=== PATIENT | female | born 1965 | race Two or more races ===

== ENCOUNTER 2020-01-08 20:15 | Emergency (ER) | payer MEDICAID, OTHER ==
[~2020-01-08] VITALS: Ht 162.6 cm; Wt 122.5 kg
[2020-01-08 22:02] LABS: Basophils # (auto) 0 10 ^3/uL (0-0.2); Basophils % (auto) 0.6 % (0.0-2.0); Eosinophils # (auto) 0.1 10 ^3/uL (0-0.8); Eosinophils % (auto) 0.9 % (0.0-7.0); Hematocrit 44.1 % (36.0-46.0); Lymphocytes # (auto) 2.4 10 ^3/uL (0.4-5.4); Lymphocytes % (auto) 29.8 % (10.0-50.0); Mean Corpuscular Hemoglobin 32.5 pg (28.0-32.0); Mean Corpuscular Hgb Conc. 33.9 g/dL (32.0-36.0); Mean Corpuscular Volume 95.9 fL (80.0-100.0); Monocytes # (auto) 0.5 10 ^3/uL (0-1.3); Monocytes % (auto) 6.6 % (0.0-12.0); Neutrophils % (auto) 62.1 % (37.0-80.0); Nucleated Red Blood Cells % 0.2 %; Platelet Count (auto) 174 10^3/uL (140-450); Red Cell Distribution Width 13.7 % (11.8-14.3)
[2020-01-08 22:19] LABS: Albumin 3.6 g/dL (3.4-5.0); Calcium 8.9 mg/dL (8.5-10.1); Potassium 3.8 mmol/L (3.5-5.1)
[2020-01-08 22:22] LABS: BUN/Creatinine Ratio 17.6; Bilirubin, Total 0.4 mg/dL (0.2-1.0); Total Protein 8.2 g/dL (6.4-8.2); Urine Bacteria FEW /hpf (None Seen); Urine Blood Negative /uL (Negative); Urine Specific Gravity 1.018 (1.001-1.035); Urine WBC 12 /hpf (0 - 5)
[2020-01-08 22:33] LABS: Alcohol, Urine < 3.0 mg/dL (0-5); Amphetamine Screen, Urine NEGATIVE (NEGATIVE); Barbiturate Scree,Urine NEGATIVE (NEGATIVE); Benzodiazephine Screen, Urine NEGATIVE (NEGATIVE); Cannabinoid Screen, Urine NEGATIVE (NEGATIVE); Cocaine Screen, Urine NEGATIVE (NEGATIVE); Opiate Scree,Urine NEGATIVE (NEGATIVE); Phencyclidine Screen, Urine NEGATIVE (NEGATIVE)
[2020-01-08 23:26] VITALS: BP 146/83
== END 2020-01-08 22:39 | disposition home or self-care (01) ==
LOC: EDBD 20:15 → ER 20:19
DX: N39.0 Urinary tract infection, site not specified (principal); F41.1 Generalized anxiety disorder; I10 Essential (primary) hypertension; E11.9 Type 2 diabetes mellitus without complications; I25.10 Atherosclerotic heart disease of native coronary artery without angina pectoris; Z86.73 Personal history of transient ischemic attack (TIA), and cerebral infarction without residual deficits
CPT/HCPCS: 36415; 74176; 80053; 80307; 81001; 82150; 82962; 83605; 83690; 85025

== ENCOUNTER 2020-02-09 15:54 | Inpatient (IN) | payer MEDICAID, OTHER ==
[~2020-02-09] VITALS: Ht 162.6 cm; Wt 121.0 kg
[2020-02-09] MEDS ORDERED: SODIUM CHLORIDE 0.9% 1,000 ML IV ONE (16:05)
[2020-02-09] MEDS ORDERED: LORazepam 2MG/ML-1ML VIAL IV ONE (16:15)
[2020-02-09 16:24] LABS: Basophils # (auto) 0.1 10 ^3/uL (0-0.2); Basophils % (auto) 0.5 % (0.0-2.0); Eosinophils # (auto) 0.2 10 ^3/uL (0-0.8); Eosinophils % (auto) 1.9 % (0.0-7.0); Hematocrit 46.5 % (36.0-46.0); Hemoglobin 14.7 g/dL (12.2-16.2); Lymphocytes # (auto) 3.9 10 ^3/uL (0.4-5.4); Lymphocytes % (auto) 40.6 % (10.0-50.0); Mean Corpuscular Hemoglobin 31.8 pg (28.0-32.0); Mean Corpuscular Hgb Conc. 31.6 g/dL (32.0-36.0); Mean Corpuscular Volume 100.8 fL (80.0-100.0); Monocytes # (auto) 0.7 10 ^3/uL (0-1.3); Monocytes % (auto) 7.1 % (0.0-12.0); Neutrophils # (auto) 4.7 10 ^3/uL (1.6-8.6); Neutrophils % (auto) 49.9 % (37.0-80.0); Platelet Count (auto) 204 10^3/uL (140-450); Red Blood Cells 4.62 10^6/uL (4.0-5.20); White Blood Cell 9.5 10^3/uL (4.4-10.8)
[2020-02-09 16:37] LABS: Albumin 3.4 g/dL (3.4-5.0); Anion Gap 15 (5-15); Blood Urea Nitrogen 12 mg/dL (7-18); Calcium 8.7 mg/dL (8.5-10.1); Carbon Dioxide 16 mmol/L (21-32); Chloride 106 mmol/L (98-107); Glucose 330 mg/dL (74-106); Potassium 4.2 mmol/L (3.5-5.1); Sodium 137 mmol/L (136-145)
[2020-02-09 16:41] LABS: Alanine Aminotransferase 24 U/L (13-56); Alkaline Phosphatase 83 U/L (45-117); Aspartate Aminotransferase 26 U/L (15-37); BUN/Creatinine Ratio 12.9; Bilirubin, Total 0.3 mg/dL (0.2-1.0); GFR African American 80 mL/min; GFR Non-African American 66 mL/min; Total Protein 7.6 g/dL (6.4-8.2)
[2020-02-09 16:58] LABS: Urine WBC None Seen /hpf (0 - 5)
[2020-02-09 17:08] LABS: Urine Bacteria NONE SEEN /hpf (None Seen); Urine Blood Negative /uL (Negative); Urine Specific Gravity 1.025 (1.001-1.035)
[2020-02-09 17:15] LABS: INR 0.97 (0.9-1.15); Partial Thromboplastin Time 23.8 sec (23.64-32.05)
[2020-02-09 17:24] LABS: Amphetamine Screen, Urine NEGATIVE (NEGATIVE); Barbiturate Scree,Urine NEGATIVE (NEGATIVE); Benzodiazephine Screen, Urine POSITIVE (NEGATIVE); Cannabinoid Screen, Urine NEGATIVE (NEGATIVE); Cocaine Screen, Urine NEGATIVE (NEGATIVE); Opiate Scree,Urine NEGATIVE (NEGATIVE); Phencyclidine Screen, Urine NEGATIVE (NEGATIVE)
[2020-02-09] MEDS ORDERED: LORazepam 2MG/ML-1ML VIAL IV PRN (19:15)
[2020-02-09] MEDS ORDERED: NITROGLYCERIN 0.4 MG SL TAB SL PRN (19:15)
[2020-02-09] MEDS ORDERED: DEXTROSE (50%) 50ML SYRG IV PRN (19:15)
[2020-02-09] MEDS ORDERED: LABETALOL HCL 5 MG/ML 4ML SYRINGE IV PRN (19:15)
[2020-02-09] MEDS ORDERED: HYDROcodone-ACET 5/325MG TAB PO PRN (19:15)
[2020-02-09] MEDS ORDERED: MORPHINE SULF INJ 2 MG/ML SYRINGE 1ML IV PRN ×2 (19:15)
[2020-02-09] MEDS ORDERED: ONDANSETRON HCL 4 MG/2 ML VIAL IV PRN (19:15)
[2020-02-09] MEDS ORDERED: ACETAMINOPHEN 500 MG TAB PO PRN (19:15)
--- NOTE | 2020-02-09 20:09 | NUR ---
Telemetry admit from ER Patient admitted to Telemetry unit. Patient oriented to primary RN, unit, room, bed, and unit policies regarding patient care and visiting hours. Patient now on continuous telemetry monitoring, tele box #[id number] and telemetry reading on arrival to unit is 78. Bed is in lowest locked position, two side rails raised and padded for safety, call recinos within reach, and bed alarm activated for safety. Patient weighed by bed scale and luque hung below the bladder draining to gravity. Instructed on POC and encouraged to call for assistance, All questions and concerns addressed, patient verbalized understanding.
[2020-02-09] MEDS: ACCU-CHEK COMFORT CURVE STRIP VI SCH (21:51)
[2020-02-09] MEDS: InsuLIN REG 1unit/0.01ml Soln (100units/ml) SC SCH (21:52)
[2020-02-09] MEDS: ATORVASTATIN 20 MG TAB PO SCH (21:56)
[2020-02-09 22:00] VITALS: BP 120/68
[2020-02-10 04:51] VITALS: BP 114/73
[2020-02-10 05:38] LABS: Basophils # (auto) 0 10 ^3/uL (0-0.2); Basophils % (auto) 0.5 % (0.0-2.0); Eosinophils # (auto) 0.1 10 ^3/uL (0-0.8); Eosinophils % (auto) 1.8 % (0.0-7.0); Hematocrit 39.5 % (36.0-46.0); Hemoglobin 13.3 g/dL (12.2-16.2); Lymphocytes # (auto) 2.1 10 ^3/uL (0.4-5.4); Lymphocytes % (auto) 34.7 % (10.0-50.0); Mean Corpuscular Hemoglobin 32.1 pg (28.0-32.0); Mean Corpuscular Hgb Conc. 33.7 g/dL (32.0-36.0); Mean Corpuscular Volume 95.2 fL (80.0-100.0); Monocytes # (auto) 0.4 10 ^3/uL (0-1.3); Monocytes % (auto) 6.4 % (0.0-12.0); Neutrophils # (auto) 3.5 10 ^3/uL (1.6-8.6); Neutrophils % (auto) 56.6 % (37.0-80.0); Platelet Count (auto) 168 10^3/uL (140-450); Red Blood Cells 4.15 10^6/uL (4.0-5.20); Red Cell Distribution Width 13.6 % (11.8-14.3); White Blood Cell 6.2 10^3/uL (4.4-10.8)
[2020-02-10 05:58] LABS: Albumin 2.9 g/dL (3.4-5.0); Calcium 8.4 mg/dL (8.5-10.1); Potassium 4.2 mmol/L (3.5-5.1)
[2020-02-10 06:04] LABS: BUN/Creatinine Ratio 11.6; Bilirubin, Total 0.4 mg/dL (0.2-1.0); Total Protein 6.5 g/dL (6.4-8.2)
[2020-02-10] MEDS: InsuLIN REG 1unit/0.01ml Soln (100units/ml) SC SCH ×4 (06:34→21:41)
[2020-02-10] MEDS: ACCU-CHEK COMFORT CURVE STRIP VI SCH ×4 (06:34→21:39)
--- NOTE | 2020-02-10 07:29 | NUR ---
Patient mentation improved. Patient states she feels less "foggy" than last night. She states that she now remembers she takes a medication for her cardiac stents but can't remember the name and to call her son for the exact information later when he wakes up. Care and information endorsed to dayshift RN.
--- NOTE | 2020-02-10 07:30 | NUR ---
Opening Shift Note Assumed care of patient, awake and alert x3. No S/S of distress/SOB or pain. Seizure precautions in place. Instructed on POC and to call for assist PRN, will continue to monitor for changes Q1hr and PRN.
[2020-02-10 08:58] VITALS: BP 122/69
[2020-02-10] MEDS: ASPirin 81 mg TAB PO SCH (09:37)
[2020-02-10] MEDS: FAMOTIDINE 20 MG TAB PO SCH (09:38)
[2020-02-10] MEDS: amLODIPine BESYLATE 5 MG TAB PO SCH (09:38)
[2020-02-10 12:26] VITALS: BP 139/78
[2020-02-10] MEDS ORDERED: OME20T PO (13:04)
[2020-02-10] MEDS ORDERED: LEVE500T32 PO (13:06)
[2020-02-10] MEDS ORDERED: ASPI-498 PO (13:07)
[2020-02-10] MEDS ORDERED: AML5T PO (13:07)
[2020-02-10] MEDS ORDERED: CLOP75TA28 PO (13:07)
[2020-02-10] MEDS ORDERED: ATOR20TA PO (13:08)
[2020-02-10] MEDS ORDERED: MET25T PO (13:08)
--- NOTE | 2020-02-10 14:56 | NUR ---
TELEPHONE ORDER DC DEJESUS CATHETER ORDERED BY
[2020-02-10 17:00] VITALS: BP 136/73
--- NOTE | 2020-02-10 19:30 | NUR ---
opening note pt A&Ox4. respirations even and nonlabored on room air. pt denies pain or discomfort at this time. POC discussed with patient. bed in low locked position, call light within reach.
[2020-02-10] MEDS: ATORVASTATIN 20 MG TAB PO SCH (21:39)
[2020-02-10 22:00] VITALS: BP 136/81
--- NOTE | 2020-02-11 02:40 | NUR ---
rounds pt resting in left lateral position with eyes closed. no s/s of pain or discomfort at this time. will continue to monitor.
[2020-02-11 05:00] VITALS: BP 118/75
[2020-02-11] MEDS: ACCU-CHEK COMFORT CURVE STRIP VI SCH ×2 (06:09→11:36)
[2020-02-11] MEDS: InsuLIN REG 1unit/0.01ml Soln (100units/ml) SC SCH ×2 (06:11→11:38)
--- NOTE | 2020-02-11 07:20 | NUR ---
closing note pt resting in right lateral position. pt denies pain or discomfort. respirations are even and nonlabored on room air. Endorsed care to EVENS Diaz.
--- NOTE | 2020-02-11 07:25 | NUR ---
Opening Shift Note Assumed care of patient, awake and alert. No S/S of distress/SOB or pain. Reports feeling much better. Instructed on POC and to call for assist PRN, will continue to monitor for changes Q1hr and PRN.
[2020-02-11 09:00] VITALS: BP 134/76
[2020-02-11] MEDS: amLODIPine BESYLATE 5 MG TAB PO SCH (10:46)
[2020-02-11] MEDS: ASPirin 81 mg TAB PO SCH (10:46)
[2020-02-11] MEDS: FAMOTIDINE 20 MG TAB PO SCH (10:47)
[2020-02-11 13:00] VITALS: BP 120/78
[2020-02-11] MEDS ORDERED: LEVE750T3 PO (14:49)
[2020-02-11 16:03] VITALS: BP 134/76
--- NOTE | 2020-02-11 16:42 | NUR ---
Discharge instructions given as ordered. Encourage to follow up with PMD as instructed. All questions and concerns addressed. Patient verbalized understanding. Medication reconciliation form completed and copy given to patient. . IV removed with catheter intact, pressure dressing applied, . Telemetry unit returned to ICU. Patient taken to vehicle via wheelchair with all personal belongings, accompanied by staff TO family member. No distress noted at time of departure.
== END 2020-02-11 16:45 | disposition home or self-care (01) | DRG 53 ==
LOC: ER 15:54 → EDBD 15:54 → TELE 15:55 → TELE-WESTW 20:00
PROVIDERS: ADMIT Nurse Practitioner Acute Care; ATTEND Internal Medicine
DX: G40.209 Localization-related (focal) (partial) symptomatic epilepsy and epileptic syndromes with complex partial seizures, not intractable, without status epilepticus (principal); E11.22 Type 2 diabetes mellitus with diabetic chronic kidney disease; N18.3 Chronic kidney disease, stage 3 (moderate); I12.9 Hypertensive chronic kidney disease with stage 1 through stage 4 chronic kidney disease, or unspecified chronic kidney disease; E66.01 Morbid (severe) obesity due to excess calories; D75.89 Other specified diseases of blood and blood-forming organs; E78.5 Hyperlipidemia, unspecified; F17.200 Nicotine dependence, unspecified, uncomplicated; I25.10 Atherosclerotic heart disease of native coronary artery without angina pectoris; Z86.73 Personal history of transient ischemic attack (TIA), and cerebral infarction without residual deficits; Z68.42 Body mass index [BMI] 45.0-49.9, adult; I25.2 Old myocardial infarction; Z87.442 Personal history of urinary calculi; Z91.14 Patient's other noncompliance with medication regimen
CPT/HCPCS: 36415; 70450; 71045; 80053; 80061; 80307; 81001; 82962; 83036; 83735; 84443; 84484; 85025; 85610; 85730; 93005; 95819; G0378; J1815; J2405; J7060

== ENCOUNTER 2021-06-10 23:01 | Emergency (ER) | payer MEDICAID, OTHER ==
[~2021-06-10] VITALS: Ht 160 cm; Wt 136.1 kg
[~2021-06-10 23:01] MED LIST: AML5T PO; ASPI-498 PO; ATOR20TA PO; CLOP75TA28 PO; LEVE750T3 PO; MET25T PO; OME20T PO
[2021-06-10] MEDS ORDERED: levETIRAcetam 500 MG/5ML INJ IV ONE ×3 (23:03→23:32)
[2021-06-11 00:02] LABS: Calcium 8.7 mg/dL (8.5-10.1)
[2021-06-11 00:03] LABS: Basophils # (auto) 0.1 10 ^3/uL (0-0.2); Basophils % (auto) 0.7 % (0.0-2.0); Eosinophils # (auto) 0.2 10 ^3/uL (0-0.8); Eosinophils % (auto) 1.7 % (0.0-7.0); Hematocrit 41.5 % (36.0-46.0); Hemoglobin 13.9 g/dL (12.2-16.2); Lymphocytes # (auto) 3.1 10 ^3/uL (0.4-5.4); Lymphocytes % (auto) 31.2 % (10.0-50.0); Mean Corpuscular Hemoglobin 32.5 pg (28.0-32.0); Mean Corpuscular Hgb Conc. 33.5 g/dL (32.0-36.0); Monocytes # (auto) 0.5 10 ^3/uL (0-1.3); Monocytes % (auto) 4.9 % (0.0-12.0); Neutrophils # (auto) 6.1 10 ^3/uL (1.6-8.6); Neutrophils % (auto) 61.5 % (37.0-80.0); Nucleated Red Blood Cells % 0.1 %; Red Blood Cells 4.28 10^6/uL (4.0-5.20); Red Cell Distribution Width 13.7 % (11.8-14.3); White Blood Cell 9.9 10^3/uL (4.4-10.8)
[2021-06-11 00:06] LABS: Lactic Acid w/Reflex 6.3 mmol/L (0.4-2.0)
[2021-06-11 00:08] LABS: BUN/Creatinine Ratio 10.7; Total Protein 6.9 g/dL (6.4-8.2)
[2021-06-11 00:10] LABS: Bilirubin, Total 0.3 mg/dL (0.2-1.0)
[2021-06-11] MEDS ORDERED: IOHEXOL 350 MG/ML 100ML IJ ONE (01:34)
[2021-06-11 01:46] LABS: INR 1.04 (0.9-1.15); Partial Thromboplastin Time 22.2 sec (23.6-33.0)
[2021-06-11 04:30] VITALS: BP 138/65
== END 2021-06-11 07:58 | disposition home or self-care (01) ==
LOC: EDBD 23:01 → ER 23:04
DX: R41.82 Altered mental status, unspecified (principal); G40.909 Epilepsy, unspecified, not intractable, without status epilepticus; I25.10 Atherosclerotic heart disease of native coronary artery without angina pectoris; E11.9 Type 2 diabetes mellitus without complications; I10 Essential (primary) hypertension; I25.2 Old myocardial infarction; Z20.822 Contact with and (suspected) exposure to COVID-19; Z87.442 Personal history of urinary calculi; Z86.73 Personal history of transient ischemic attack (TIA), and cerebral infarction without residual deficits; Z87.440 Personal history of urinary (tract) infections; Z98.890 Other specified postprocedural states
CPT/HCPCS: 36415; 70450; 70496; 71045; 80053; 83605; 85025; 85610; 85730; 87426; 96365; 99285; J1953; J7050; J7060; Q9967

== ENCOUNTER 2025-01-12 16:19 | Inpatient (IN) | payer OTHER ==
[2025-01-12] VITALS (7 sets, daily range): BP systolic 86–129; BP diastolic 53–83; PULSE 74–122; RESP 18–99; TEMP 97.3–98.8; O2SAT 98–100
[~2025-01-12] VITALS: Ht 167.6 cm; Wt 45.1 kg
[~2025-01-12 16:19] MED LIST changes: +ASPI-325 PO; +ATOR20TA50 PO; +LISI10TA34 PO; +METF-370 PO
[2025-01-12] MEDS: LORazepam 2MG/ML-1ML VIAL IV ONE (16:27)
[2025-01-12] MEDS: IOHEXOL 350 MG/ML 100ML IJ ONE (16:28)
[2025-01-12] MEDS: ETOMIDATE (2MG/ML) 20ML VIAL IV ONE ×2 (16:32→16:36)
[2025-01-12] MEDS: ROCURONIUM 10MG/ML 10ML VIAL IV ONE ×2 (16:32→16:37)
[2025-01-12] MEDS: MIDAZOLAM DRIP 50 mg/50mL 50 ML IV ONE (16:38)
[2025-01-12] MEDS: MIDAZOLAM DRIP 50 mg/50mL 50 ML IV SCH (16:44)
--- NOTE | 2025-01-12 16:56 | ED.PDOC ---
HPI (NEURO) HPI Comments 59 year old female brought in by family presents to the ED with chief complaint of possible stroke. Family reports that the patient was witnessed to have started to stare at the ground and stopped talking about 15 minutes prior to ED arrival, which was around 15 50. Family states that the patient was then noticed to have no strength in her right side when being taken out of the vehicle into the ED, then proceeded to have a seizure in the triage room. Patient unable to respond to questions at this time due to her condition. Chief Complaint: Stroke Time Seen by MD: 16:51 Reviewed Notes: Nurses Notes, Medications, Allergies Information Source: Relative Mode of Arrival: Wheelchair Severity: Severe Timing: Minutes Duration: Since onset Prehospital treatment: None Weakness Location: (R) Sided Onset: At rest Circumstances: Spontaneous Symptoms: Weakness, Difficult speech History of: AR, DM, Hypertension Associated Signs and Symptoms: Weakness Past Medical History PAST MEDICAL HISTORY: CAD, DM, HTN, Kidney Stones, AR, Seizures, TIA, UTI'S Surgical History: PTCA LEGAL AID History: Denies all LEGAL AID Hx Family History Family History: Reviewed,noncontributory to illness Social History Smoker: Non-Smoker Alcohol: Occasionally Drugs: Denies Drug Use Lives In: Home Constitutional: denies: chills, diaphoresis, fatigue, fever, malaise, sweats, weakness, others EENTM: denies: blurred vision, double vision, ear bleeding, ear discharge, ear drainage, ear pain, ear ringing, eye pain, eye redness, hearing loss, mouth pain, mouth swelling, nasal discharge, nose bleeding, nose congestion, nose pain, photophobia, tearing, throat pain, throat swelling, voice changes, others Respiratory: denies: cough, hemoptysis, orthopnea, SOB at rest, shortness of breath, SOB with excertion, stridor, wheezing, others Cardiovascular: denies: chest pain, dizzy spells, diaphoresis, Dyspnea on exertion, edema, irregular heart beat, left arm pain, lightheadedness, palpitations, PND, syncope, others Gastrointestinal: denies: abdomen distended, abdominal pain, blood streaked bowels, constipated, diarrhea, dysphagia, difficulty swallowing, hematemesis, melena, nausea, poor appetite, poor fluid intake, rectal bleeding, rectal pain, vomiting, others Genitourinary: denies: abnormal vagina bleeding, burning, dyspareunia, dysuria, flank pain, frequency, hematuria, incontinence, pain, , vagina discharge, urgency, others Neurological: reports: right sided weakness, speech problems; denies: dizziness, fainting, headache, left sided numbness, left sided weakness, numbness, paresthesia, pre-existing deficit, right sided numbness, seizure, tingling, tremors, weakness, others Musculoskeletal: denies: back pain, gout, joint pain, joint swelling, muscle pain, muscle stiffness, neck pain, others Integumetry: denies: bruises, change in color, change in hair/nails, dryness, laceration, lesions, lumps, rash, wounds, others Allergic/Immunocompromised: denies: Difficulty Healing, Frequent Infections, Hives, Itching, others Hematologic/Lymphatic: denies: anemia, blood clots, easy bleeding, easy bruising, swollen glands, others Endocrine: denies: excessive hunger, excessive sweating, excessive thirst, excessive urination, flushing, intolerance to cold, intolerance to heat, unexplained weight gain, unexplained weight loss, others Psychiatric: denies: anxiety, bipolar disorder, depression, hopeless, panic disorder, schizophrenia, sleepless, suicidal, others All Other Systems: Reviewed and Negative Physical Exam General Appearance: Moderate Distress HEENT: Other (Pupils and face symmetric. Moist mucous membranes.) Neck: Full Range of Motion, Normal Inspection Respiratory: Lungs Clear, No Accessory Muscle Use, No Respiratory Distress, Normal Breath Sounds Cardiovascular: No Edema, No JVD, Regular Rate/Rhythm Breast Exam: Deferred Gastrointestinal: Non Tender, Soft Genitalia: Deferred Pelvic: Deferred Rectal: Deferred Extremities: Normal inspection, Normal range of motion, Non-tender, No pedal edema Neurologic: Alert (No verbal responses, actively seizing) Cerebellar Function: Unable to Test Reflexes: NOT DONE Skin: Dry, Normal Color, Warm Lymphatic: NOT DONE EKG EKG : Comments Sinus tach, rate 125, normal FL interval, QRS 158, QTC 512, normal axis, old anteroseptal infarct, inferior ST depression, lateral T-wave inversion Was a procedure done? Was a procedure done?: Yes Sedation Sedation?: Yes Informed consent obtained: Yes Sedation start time: 16:35 Sedation end time: 16:45 Sedation total time: 10 minutes Central Line Recorder of insertion practice: Observer Occupation of director operating: Other medical staff (internal medicine resident physician) Indication: Hypotension Room prepared for procedure: Yes Ring Spinner performed hand hygien: Yes Maximal sterile barrier precau: Mask/Eye shield, Sterile gown, Cap, Sterlie gloves, Large sterlie drape Skin Preparation: Chlorhexidine gluconate Skin preparation completely dr: Yes Insertion site: Left, Internal jugular Central line catheter type: [id number] dialysis Number of lumens: 3 Central line exchanged over a: Yes Antiseptic ointment applied to: No Post Assessment: Chest X-Ray, Proper placement Informed consent obtained: No (procedure was emergent, pt is intubated) Risks/benefits/alt described: No Notes Left IJ central line inserted by internal medicine resident under my direct supervision. Intubation Indication: Respiratory Insufficiency, Altered Mental Status, Airway Protection Prep: Preoxygenation Medicated with: Other (Rocuronium 100mg and Etomidate 20mg ) Intubation Approach: Orotracheal Intubation size: cm (8) Informed consent obtained: Yes Risks/benefits/alt described: Yes Notes Patient intubated using the glide scope. Internal medicine resident performed the procedure under my direct supervision. 1st attempt at 1638: Unsuccessful. 2nd attempt at 1645: Successful. Differential Diagnosis (SZ) Seizure: Epilepsy-Break Through, Epilepsy-Status CVA: CVA, Hypoxemia, Mass Lesion, Respiratory Failure, TIA General Weakness: Electrolyte imbalance, Encephalopathy Headache: Epidural Hemorrhage, Intracerebral Hemorrhage, Subarachnoid Hemorrh age, Subdural Hemorrhage, Mass Lesion, Meningitis X-Ray, Labs, Meds, VS Vital Signs Date Time Temp Pulse Resp B/P (MAP) Pulse Ox O2 Delivery O2 Flow Rate FiO2 01/12/25 20:30 97.6 78 18 101/51 (68) 99 97.6 01/12/25 20:28 77 99 99 Mechanical Ventilator+ 60 80 80 01/12/25 20:13 93/52 01/12/25 20:05 75 19 105/56 (72) 99 01/12/25 20:05 87/54 01/12/25 20:00 74 19 98/55 (69) 99 01/12/25 20:00 86/55 01/12/25 20:00 86/55 01/12/25 20:00 86/55 01/12/25 20:00 86/55 01/12/25 20:00 74 4/23/25 19:58 80/47 01/12/25 19:56 78/59 01/12/25 19:55 88/53 01/12/25 19:55 88/53 01/12/25 19:55 74 19 88/53 (65) 99 01/12/25 19:54 74 18 86/54 (65) 99 70 01/12/25 19:54 76/42 01/12/25 19:54 76/42 01/12/25 19:50 76 19 86/54 (65) 99 01/12/25 19:45 75 19 82/47 (59) 99 01/12/25 19:40 75 19 97/60 (72) 99 01/12/25 19:35 81 19 108/64 (79) 99 01/12/25 19:30 99/59 01/12/25 19:30 99/59 01/12/25 19:30 79 19 99/59 (72) 99 01/12/25 19:20 87 18 86/49 (61) 99 01/12/25 19:15 97.2 89 18 76/49 (58) 99 97.2 01/12/25 19:05 97.1 99 18 86/57 (67) 100 97.1 01/12/25 19:00 100 18 92/57 (69) 99 01/12/25 18:49 104 19 99 Mechanical Ventilator+ 60 22 22 01/12/25 18:45 107 22 102/64 (77) 98 01/12/25 18:44 150/102 01/12/25 18:30 132 25 150/102 (118) 01/12/25 18:30 150/102 01/12/25 18:15 122 23 129/83 (98) 100 80 01/12/25 18:15 114 21 129/83 (98) 100 01/12/25 18:00 110 22 165/104 (124) 100 01/12/25 18:00 165/104 01/12/25 17:30 122 18 189/105 (133) 100 01/12/25 17:10 130 18 182/96 (124) 100 100 01/12/25 17:06 135 01/12/25 16:44 205/106 01/12/25 16:40 125 01/12/25 16:37 205/106 01/12/25 16:20 98.0 118 18 170/130 (143) 97 98.0 Lab Test 01/12/25 19:28 01/12/25 18:35 01/12/25 17:42 01/12/25 17:19 Range/Units Lactic Acid Level 3.6 *H 0.4-2.0 mmol/L Blood Gas Specimen Type Arterial Blood Gas Sample Site Right radial Blood Gas Patient Temperature 37.0 Arterial Blood Date Drawn [id number] Arterial Blood pH 7.305 L 7.350-7.450 Arterial Blood Partial Pressure CO2 38.7 32.0-45.0 mmHg Arterial Blood Partial Pressure O2 261.5 H 83.0-108.0 mmHg Arterial Blood HCO3 18.8 L 21.0-28.0 mmol/L Arterial Blood Oxygen Saturation 99.7 H 94.0-98.0 % Arterial Blood Base Excess -6.9 L -2.0-3.0 mmol/L Arterial Blood Oxyhemoglobin 98.6 H 94.0-98.0 % Arterial Blood Carboxyhemoglobin 0.3 L 0.5-1.5 % Arterial Blood Methemoglobin 0.8 0.0-1.5 % Rene Test Modified Blood Gas Total Hemoglobin 15.20 12.0-16.0 g/dL Blood Gas Set Respiration Rate 18.0 Blood Gas Modality Vent - ac FiO2 % 100.0 Blood Gas Tidal Volume 500.0 Blood Gas PEEP or CPAP 5.0 Troponin I High Sensitivity 7 </=34 ng/L Urine Color Light-yellow Yellow Urine Clarity Turbid H Clear Urine pH 6.0 5.0-9.0 Urine Specific [place] 1.034 1.001-1.035 Urine Protein 1+ H Negative Urine Ketones Negative Negative Urine Blood 1+ H Negative /uL Urine Nitrite Negative Negative Urine Bilirubin Negative Negative Urine Urobilinogen Normal Negative mg/dL Urine Leukocyte Esterase 3+ Negative /uL Urine RBC 17 0 - 4 /hpf Urine Microscopic WBC 20 H 0-5 /HPF Urine Squamous Epithelial Cells Few <5 /hpf Urine Bacteria Few H None Seen /hpf Urine Glucose 2+ H Normal mg/dL Urine Opiates Screen Pending Urine Fentanyl Screen Pending Urine Barbiturates Screen Pending Urine Phencyclidine Screen Pending Urine Amphetamines Screen Pending Urine Benzodiazepines Screen Pending Urine Cocaine Screen Pending Urine Cannabinoids Screen Pending Test 01/12/25 16:43 Range/Units White Blood Count 12.1 H 4.4-10.8 10^3/uL Red Blood Count 4.18 4.0-5.20 10^6/uL Hemoglobin 14.7 12.2-16.2 g/dL Hematocrit 45.6 36.0-46.0 % Mean Corpuscular Volume 109.0 H 80.0-100.0 fL Mean Corpuscular Hemoglobin 35.1 H 28.0-32.0 pg Mean Corpuscular Hemoglobin Concent 32.2 32.0-36.0 g/dL Red Cell Distribution Width 15.1 H 11.8-14.3 % Platelet Count 144 140-450 10^3/uL Mean Platelet Volume 9.0 6.9-10.8 fL Neutrophils (%) (Auto) 37.0-80.0 % Lymphocytes (%) (Auto) 10.0-50.0 % Monocytes (%) (Auto) 0.0-12.0 % Basophils (%) (Auto) 0.0-2.0 % Neutrophils # (Auto) 1.6-8.6 10 ^3/uL Lymphocytes # (Auto) 0.4-5.4 10 ^3/uL Monocytes # (Auto) 0-1.3 10 ^3/uL Differential Total Cells Counted 100.0 100 Neutrophils % (Manual) 30 L 37.0-80.0 Band Neutrophils % (Manual) 1 Lymphocytes % (Manual) 50 10.0-50.0 Monocytes % (Manual) 6 0-12 Eosinophils % (Manual) 2 0-7 Basophils % (Manual) 0 0.0-2.0 Metamyelocytes % (manual) 0 Myelocytes % (Manual) 0 Promyelocytes % (Manual) 0 Blast Cells % (Manual) 0 Reactive Lymphocytes 11 Platelet Estimate Adequate Anisocytosis (manual) Slight Sodium Level 137 136-145 mmol/L Potassium Level 4.0 3.5-5.1 mmol/L Chloride Level 104 98-107 mmol/L Carbon Dioxide Level 16 L 20-31 mmol/L Anion Gap 17 H 5-15 Blood Urea Nitrogen 7 L 9-23 mg/dL Creatinine 0.88 0.550-1.02 mg/dL Glomerular Filtration Rate Calc 75 >90 mL/min BUN/Creatinine Ratio 8.0 L 10.0-20.0 Serum Glucose 218 H 74-106 mg/dL Lactic Acid Level 11.1 *H 0.4-2.0 mmol/L Calcium Level 9.2 8.7-10.4 mg/dL Total Bilirubin 0.5 0.2-1.0 mg/dL Aspartate Amino Transferase (AST) 66 H 13-40 U/L Alanine Aminotransferase (ALT) 40 7-40 U/L Alkaline Phosphatase 104 46-116 U/L Creatine Kinase 63 34-145 U/L Troponin I High Sensitivity 4 </=34 ng/L B-Type Natriuretic Peptide 333.94 0-100 pg/mL Total Protein 7.4 5.7-8.2 g/dL Albumin 4.2 3.2-4.8 g/dL Levetiracetam Level Pending Current Medications Medications (Trade) Dose Ordered Sig/Tracy Route Start Time Stop Time Status Last Admin Lorazepam (Ativan Inj) 2 mg ONCE ONCE IV 01/12/25 16:30 01/12/25 16:31 DC 01/12/25 16:27 Levetiracetam 100 ml @ 400 mls/hr ONCE ONCE IV 01/12/25 16:30 01/12/25 16:44 DC 01/12/25 17:49 Etomidate 30 mg ONCE ONCE IV 01/12/25 17:15 01/12/25 17:16 DC 01/12/25 16:36 Rocuronium [place] 100 mg ONCE ONCE IV 01/12/25 17:15 01/12/25 17:16 DC 01/12/25 16:37 Midazolam HCl 50 ml @ 1 mls/hr Q24H IV 01/12/25 17:15 01/12/25 22:30 Fentanyl Citrate 250 ml @ 2.5 mls/hr Q24H IV 01/12/25 18:30 01/12/25 18:00 Sodium Bicarbonate 50 ml ONCE ONCE IV 01/12/25 18:45 01/12/25 18:46 DC 01/12/25 19:53 Norepinephrine Bitartrate 250 ml @ 3.75 mls/hr Q24H IV 01/12/25 19:30 01/12/25 19:54 Propofol 100 ml @ 2.925 mls/ hr Q24H IV 01/12/25 19:30 01/12/25 22:30 PROCEDURE(s): CTH - STROKE CTH REASON: R sided weakness, acute sz ORDER NUMBER(s): [id number], ACCESSION NUMBER(s): [id number] EXAM: CT STROKE CTH, CT ANGIO HEAD/Neck; DATE: 01/12/2025 04:47 PM HISTORY: R sided weakness, acute sz COMPARISON: HEAD WITHOUT CONTRAST on DOS: 06/10/21 TECHNIQUE: Axial images were obtained and reformatted in coronal and sagittal planes. All CT scans at this medical facility are performed using dose modulation techniques as appropriate to a performed exam including the following: Automated exposure control was utilized; adjustment of the MA and/or KV according to patient size; and use of iterative reconstruction technique. CT Dose: CTDI volume is 63.7 mGy. Dose-length product is 1127.79 mGy*cm FINDINGS: Supratentorial Region: No evidence for large acute territorial ischemia. Bilateral posterior parietal lobes encephalomalacia. No intracranial hemorrhage is noted. Confluent white matter hypoattenuating foci are noted bilaterally, which typically reflect chronic microvascular ischemic changes. Posterior Fossa: No acute abnormality. Brainstem: Unremarkable. Sellar/Suprasellar Region: Unremarkable. Ventricles, Cisterns, Sulci: Age-appropriate. Orbits: Unremarkable. Paranasal Sinuses: Unremarkable. Mastoid Air Cells: Unremarkable. Vasculature: Intracranial arterial calcified plaque formation noted. Bones/Soft Tissues: No acute abnormality. Other: None. IMPRESSION: 1. No large acute territorial ischemia or intracranial hemorrhage. 2. 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 Critical Result: Stroke Alert Findings discussed with SAMARA SALAS at 01/12/2025 05:21 PM, and acknowledged receipt and understanding of the findings. .. EDURE(s): [place] - ANGIO HEAD/Neck REASON: R side weakness, acute sz ORDER NUMBER(s): [id number], ACCESSION NUMBER(s): [id number] ADDENDUM ADDENDUM # 1 EXAM: CT ANGIO HEAD/Neck; DATE: 01/12/2025 04:51 PM HISTORY: R side weakness, acute sz COMPARISON: ANGIO HEAD WO AND WITH on DOS: 06/11/21 TECHNIQUE: CTA imaging of the neck and head was performed following the uneventful administration of intravenous contrast. Sagittal and coronal reformatted images were obtained from the source data. 3D/MIP post-processing of the source data set was performed and reviewed by the radiologist. Radiation Dose Information: CT Dose: CTDI volume is 22.32 mGy. Dose-length product is 742.9 mGy*cm All CT scans at this medical facility are performed using dose modulation te chniques as appropriate to a performed exam including the following: Automated exposure control was utilized; adjustment of the MA and/or KV according to patient size; and use of iterative reconstruction technique. FINDINGS: CTA Neck: Aortic Arch: Conventional branching. Right brachiocephalic artery: Unremarkable. Right carotid artery: Unremarkable. Right subclavian artery: Unremarkable. Right vertebral artery: Unremarkable. Left carotid artery: Unremarkable. Left subclavian artery: Unremarkable. Left vertebral artery: Unremarkable. Other: The patient is intubated. The ETT tip is not included in the field of view. Some fluid is seen in the posterior nasopharynx and oropharynx. There is fluid opacification of the sphenoid sinuses. Multilevel degenerative disc disease of the cervical spine noted. CTA Head: [place]: The arteries of [place] are patent, without evidence of aneurysm, stenosis or thrombosis. Atherosclerotic calcification of the bilateral carotid siphons noted. Atherosclerotic calcification of the bilateral intracranial vertebral arteries noted Dural venous: Grossly unremarkable. Other: None. IMPRESSION: 1. No large vessel occlusion or high-grade stenosis in the arteries of the head and neck. No aneurysm is identified. ORIGINAL REPORT EXAM: CT STROKE CTH, CT ANGIO HEAD/Neck; DATE: 01/12/2025 04:47 PM HISTORY: R sided weakness, acute sz COMPARISON: HEAD WITHOUT CONTRAST on DOS: 06/10/21 TECHNIQUE: Axial images were obtained and reformatted in coronal and sagittal planes. All CT scans at this medical facility are performed using dose modulation techniques as appropriate to a performed exam including the following: Automated exposure control was utilized; adjustment of the MA and/or KV according to patient size; and use of iterative reconstruction technique. CT Dose: CTDI volume is 63.7 mGy. Dose-length product is 1127.79 mGy*cm FINDINGS: Supratentorial Region: No evidence for large acute territorial ischemia. Bilateral posterior parietal lobes encephalomalacia. No intracranial hemorrhage is noted. Confluent white matter hypoattenuating foci are noted bilaterally, which typically reflect chronic microvascular ischemic changes. Posterior Fossa: No acute abnormality. Brainstem: Unremarkable. Sellar/Suprasellar Region: Unremarkable. Ventricles, Cisterns, Sulci: Age-appropriate. Orbits: Unremarkable. Paranasal Sinuses: Unremarkable. Mastoid Air Cells: Unremarkable. Vasculature: Intracranial arterial calcified plaque formation noted. Bones/Soft Tissues: No acute abnormality. Other: None. IMPRESSION: 1. No large acute territorial ischemia or intracranial hemorrhage. 2. 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 Critical Result: Stroke Alert Findings discussed with SAMARA SALAS at 01/12/2025 05:21 PM, and acknowledged receipt and understanding of the findings. .. ATED BY: BHARTI RICHARDSON MD DICTATED DATE/TIME: 01/12/251911 SIGNED BY: BAHRTI RICHARDSON MD SIGNED DATE/TIME: 01/12/251911 CC: EXAM: CT STROKE CTH, CT ANGIO HEAD/Neck; DATE: 01/12/2025 04:47 PM HISTORY: R sided weakness, acute sz COMPARISON: HEAD WITHOUT CONTRAST on DOS: 06/10/21 TECHNIQUE: Axial images were obtained and reformatted in coronal and sagittal planes. All CT scans at this medical facility are performed using dose modulation techniques as appropriate to a performed exam including the following: Automated exposure control was utilized; adjustment of the MA and/or KV according to patient size; and use of iterative reconstruction technique. CT Dose: CTDI volume is 63.7 mGy. Dose-length product is 1127.79 mGy*cm FINDINGS: Supratentorial Region: No evidence for large acute territorial ischemia. Bilateral posterior parietal lobes encephalomalacia. No intracranial hemorrhage is noted. Confluent white matter hypoattenuating foci are noted bilaterally, which typically reflect chronic microvascular ischemic changes. Posterior Fossa: No acute abnormality. Brainstem: Unremarkable. Sellar/Suprasellar Region: Unremarkable. Ventricles, Cisterns, Sulci: Age-appropriate. Orbits: Unremarkable. Paranasal Sinuses: Unremarkable. Mastoid Air Cells: Unremarkable. Vasculature: Intracranial arterial calcified plaque formation noted. Bones/Soft Tissues: No acute abnormality. Other: None. IMPRESSION: 1. No large acute territorial ischemia or intracranial hemorrhage. 2. 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 Critical Result: Stroke Alert Findings discussed with SAMARA SALAS at 01/12/2025 05:21 PM, and acknowledged receipt and understanding of the findings. .. EDURE(s): CXRP - CHEST PORTABLE REASON: INTUBATION ORDER NUMBER(s): [id number], ACCESSION NUMBER(s): [id number] EXAM: XY CHEST PORTABLE TECHNIQUE: Single frontal chest radiograph CLINICAL HISTORY: INTUBATION COMPARISON: CHEST PORTABLE on DOS: 06/10/21, CXRP on DOS: 06/10/21, CHEST PORTABLE on DOS: 02/09/20 Findings/Impression: Frontal chest radiograph demonstrates no acute osseous or superficial soft tissue abnormalities. Endotracheal tube measures 1.0 cm from the jeanie. Recommend retracting 4 cm for more optimal positioning. Enteric tube is overlying the plane of the stomach. The trachea is midline. Mild cardiomegaly with pulmonary vascular congestion. No pneumothorax, pleural effusions, or consolidations. Critical Result: Malpositioned line Findings discussed with Dian HORNER at 01/12/2025 06:02 PM, and acknowledged receipt and understanding of the findings. X-Ray, Labs, Meds, VS Comment 59-year-old female with a history of seizures, TIAs, CAD, diabetes, hypertension, AR brought in by family for evaluation of altered mental status, followed by a seizure at triage Vitals remarkable for BP 170/130, heart rate 118 Exam remarkable for initial seizure activity Rhythm strip independently interpreted by me: Sinus tach, rate 118, no ectopy. CT head without contrast and CT angio head and neck unremarkable for any large territory ischemia Chest x-ray Findings/Impression: Frontal chest radiograph demonstrates no acute osseous or superficial soft tissue abnormalities. Endotracheal tube measures 1.0 cm from the jeanie. Recommend retracting 4 cm for more optimal positioning. Enteric tube is overlying the plane of the stomach. The trachea is midline. Mild cardiomegaly with pulmonary vascular congestion. No pneumothorax, pleural effusions, or consolidations. CBC remarkable for WBC 12.1, metabolic panel remarkable for CO2 16, glucose 218, BNP 333.94, troponin negative, UA abnormal consistent with UTI Patient treated with the following in the ED: Shortly after arrival vitals sitting in a wheelchair at triage, patient had a tonic-clonic seizure lasting approximately 1 minute. This resolved with IV Ativan 2 mg After being moved to an ER bed, patient was noted to be apneic, so was immediately provided with BVM respirations and was subsequently intubated. Please see procedure note for details. Patient also received Keppra 1 g IV. Code stroke was initiated, and I discussed the case with Dr. Rojas, code stroke neurologist. She recommended admitting the patient for MRI and further Neurology evaluation. No thrombolytics for now, as she favors recurrent seizure as opposed to acute stroke. Time of 1ST Reevaluation: 17:50 Reevaluation 1ST: Unchanged Time of 2ND Reevaluation: 22:23 Reevaluation 2ND: Improved (Moving all extremities.) Patient Education/Counseling: Pt Unresponsive Family Education/Counseling: Diagnosis, Treatment Departure 1 Departure Time of Disposition: 22:23 Impression: Primary Impression: Seizure Additional Impressions: Encephalopathy acute Respiratory failure Qualified Codes: J96.90 - Respiratory failure, unspecified, unspecified whether with hypoxia or hypercapnia UTI (urinary tract infection) Qualified Codes: N39.0 - Urinary tract infection, site not specified Disposition: ADMITTED INPATIENT Admit to: ICU Condition: Serious Critical Care Note Critical Care Time?: Yes (45 min-critical care time only) Critical care comment: Critical care time including multiple bedside re-evaluations, review of lab and imaging studies, and discussion of the case with the admitting and consulting providers. Patient is high risk for neurologic and/or respiratory decompensation. Stability Stability form required: No Heart Score Heart Score: Heart Score Response (Comments) Value History N/A 0 EKG N/A 0 Age N/A 0 Risk Factors N/A 0 Troponin N/A 0 Total 0 I personally scribed for SAMARA SALAS MD ([email or web address]) on 01/12/25 at 16:55. Electronically submitted by Benigno Smallwood ([email or web address]). I personally scribed for SAMARA SALAS MD ([email or web address]) on 01/12/25 at 19:47. Electronically submitted by Gonzalo Clement ([email or web address]). SAMARA SALAS MD Jan 12, 2025 16:55
[2025-01-12 17:02] LABS: Hematocrit 45.6 % (36.0-46.0); Hemoglobin 14.7 g/dL (12.2-16.2); Mean Corpuscular Hemoglobin 35.1 pg (28.0-32.0); Mean Corpuscular Hgb Conc. 32.2 g/dL (32.0-36.0); Platelet Count (auto) 144 10^3/uL (140-450); Red Blood Cells 4.18 10^6/uL (4.0-5.20); Red Cell Distribution Width 15.1 % (11.8-14.3); White Blood Cell 12.1 10^3/uL (4.4-10.8)
[2025-01-12 17:05] LABS: Basophils % (manual) 0 (0.0-2.0); Blast Cells 0; Metamyelocytes % 0; Myelocytes % 0; Promyelocytes % 0
[2025-01-12 17:14] LABS: Albumin 4.2 g/dL (3.2-4.8); Alkaline Phosphatase 104 U/L (46-116); Anion Gap 17 (5-15); Bilirubin, Total 0.5 mg/dL (0.2-1.0); Calcium 9.2 mg/dL (8.7-10.4); Chloride 104 mmol/L (98-107); Sodium 137 mmol/L (136-145); Total Protein 7.4 g/dL (5.7-8.2)
[2025-01-12 17:16] LABS: Alanine Aminotransferase 40 U/L (7-40); Aspartate Aminotransferase 66 U/L (13-40); Blood Urea Nitrogen 7 mg/dL (9-23); Carbon Dioxide 16 mmol/L (20-31); Glucose 218 mg/dL (74-106)
--- NOTE | 2025-01-12 17:25 | DVH ---
EXAM: CT STROKE CTH, CT ANGIO HEAD/Neck; DATE: 01/12/2025 04:47 PM HISTORY: R sided weakness, acute sz COMPARISON: HEAD WITHOUT CONTRAST on DOS: 06/10/21 TECHNIQUE: Axial images were obtained and reformatted in coronal and sagittal planes. All CT scans at this medical facility are performed using dose modulation techniques as appropriate t o a performed exam including the following: Automated exposure control was utilized; adjustment of th e MA and/or KV according to patient size; and use of iterative reconstruction technique. CT Dose: CTDI volume is 63.7 mGy. Dose-length product is 1127.79 mGy*cm FINDINGS: Supratentorial Region: No evidence for large acute territorial ischemia. Bilateral posterior parieta l lobes encephalomalacia. No intracranial hemorrhage is noted. Confluent white matter hypoattenuating foci are noted bilaterally, which typically reflect chronic microvascular ischemic changes. Posterior Fossa: No acute abnormality. Brainstem: Unremarkable. Sellar/Suprasellar Region: Unremarkable. Ventricles, Cisterns, Sulci: Age-appropriate. Orbits: Unremarkable. Paranasal Sinuses: Unremarkable. Mastoid Air Cells: Unremarkable. Vasculature: Intracranial arterial calcified plaque formation noted. Bones/Soft Tissues: No acute abnormality. Other: None. IMPRESSION: 1. No large acute territorial ischemia or intracranial hemorrhage. 2. 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 Critical Result: Stroke Alert Findings discussed with SAMARA SALAS at 01/12/2025 05:21 PM, and acknowledged receipt and understanding of the findings. ..
[2025-01-12] MEDS: levETIRAcetam 1000 mg/100ml 100 ML IV ONE (17:49)
[2025-01-12] MEDS: fentaNYL Drip 2500mCg/250mlNS 250 ML IV SCH (18:00)
--- NOTE | 2025-01-12 18:04 | DVH ---
EXAM: XY CHEST PORTABLE TECHNIQUE: Single frontal chest radiograph CLINICAL HISTORY: INTUBATION COMPARISON: CHEST PORTABLE on DOS: 06/10/21, CXRP on DOS: 06/10/21, CHEST PORTABLE on DOS: 02/09/20 Findings/Impression: Frontal chest radiograph demonstrates no acute osseous or superficial soft tissue abnormalities. Endotracheal tube measures 1.0 cm from the jeanie. Recommend retracting 4 cm for more optimal positi oning. Enteric tube is overlying the plane of the stomach. The trachea is midline. Mild cardiomegaly with pulmonary vascular congestion. No pneumothorax, pleural effusions, or consolidations. Critical Result: Malpositioned line Findings discussed with Dian HORNER at 01/12/2025 06:02 PM, and acknowledged receipt and understanding of the findings.
--- NOTE | 2025-01-12 18:15 | DVHINCON2 ---
Neuro Consultation Date of Consultation Date: 01/12/25 History of Present Illness History of Present Illness: [facility] [facility] Note # Demographics Consult Type: Acute Stroke Level 1 (0-4.5 hrs) Patient Location: Emergency Room First Name: Adela Last Name: Dashawn Date of : 1965 Age: 59 Gender: Female Facility: Time of Initial Page (): 01/12/2025 17:42 Time of Return Call (): 01/12/2025 17:42 # HPI Chief Complaint: - weakness (focal) History: 59yof with seizures, previous strokes, heart disease who p/w became disoriented, and was staring ahead. They drove her here, when they brought her out of the car, possibly had some R sided weakness but ED physician did not witness this. Upon arrival, she had a seizure and was intubated and sedated. Family said she reportedly had run out of her seizure medications. Now, currently seemingly to move extremities equally. Last Known Normal: - I have collected independent history specific to time last normal or last known well. We have collaborated with the provider and at this time, we have the most current timeline with the information that is available. 15:50 # Scores Time of exam and NIHSS (): 01/12/2025 17:53 Level of Consciousness 1a: [2] = Not alert; requires strong or painful stim LOC Questions 1b: [2] = Answers neither correctly LOC Commands 1c: [2] = Performs neither correctly Best Gaze 2: [0] = Normal Visual 3: [0] = No visual loss Facial Palsy 4: [0] = Normal symmetrical movements Motor Arm Left 5a: [3] = No effort against gravity Motor Arm Right 5b: [3] = No effort against gravity Motor Leg Left 6a: [3] = No effort against gravity Motor Leg Right 6b: [3] = No effort against gravity Limb Ataxia 7: [0] = Absent Sensory 8: [0] = Normal Best Language 9: [3] = Mute Dysarthria 10: [0] UN = Intubated or other physical barrier Extinction and Inattention 11: [0] = No abnormality NIHSS Total: 21 # Data Time Head CT personally read by me (): 01/12/2025 18:[address]: - no bleed - preliminarily reviewed by me, please refer to radiology read for official reading chronic bilateral strokes CTA Head: - no large vessel occlusion - preliminarily reviewed by me, please refer to radiology read for official reading CTA Neck: - patent vessels - preliminarily reviewed by me, please refer to radiology read for official reading # Assessment Impression: Story more suspicious for seizure rather than stroke, does not have any focal weakness now and normal CTH/CTA. Recommend treatment of seizure and following workup # Plan Thrombolytic/Intervention: NOT IV Thrombolysis or IA Intervention candidate Thrombolytic Exclusion: - other (see below) suspect more likely seizure and postictal state rather than stroke especially given normal CTH/CTA Labs: Full infectious and metabolic workup for AMS Imaging: (urgency: routine): - MRI Brain with AND without contrast Diagnostic Test: - EEG cEEG if no improvement back to baseline after weaning sedation Medication: Load Keppra, continue home Keppra 750mg BID Other: - If patient has any neurological deterioration please call me back immediately # Logistics Attestation of consult completion: The patient is located at: . Facility staff participated in the visit. I performed this telemedicine visit from my offsite office utilizing interactive 2 way audio and visual telecommunication technology. Total time spent in telemedicine encounter: I spent 27 minutes reviewing clinical data and/or imaging, obtaining history, examining the patient, communicating with the onsite care team, and in preparation of this report. # Demographics First Name: Adela Last Name: Dashawn Facility: Review of Systems Review of Systems: Review of Systems: 12 point review of systems is negative unless stated in HPI. Social History Social History: Social History: Denies alcohol, tobacco, and/or ellicit drug usage. Work - Living situation - Use of ambulatory devices - Family History Patient History: FH: cancer G8 MOTHER Allergies and Medications Allergies: Coded Allergies: NO KNOWN ALLERGIES (Unverified , 01/08/20) Home Meds: Active Scripts Levetiracetam (Levetiracetam) 750 Mg Tab, 750 MG PO BID for 30 Days, #60 TAB Prov:SANDRINE KENNEDY MD 02/11/20 Reported Medications Atorvastatin Calcium (Lipitor) 20 Mg Tab, 1 TAB PO HS, #90 TAB 1 Refill 02/10/20 Metoprolol Tartrate (Lopressor) 25 Mg Tb, 25 MG PO Q12HR, TAB 0 Refills 02/10/20 Clopidogrel Bisulfate (Plavix) 75 Mg Tab, 1 TAB PO DAILY, #90 TAB 1 Refill 02/10/20 Amlodipine Besylate (NORVASC TABLET) 5 Mg Tb, 1 TAB PO DAILY, #30 TAB 5 Refills 02/10/20 Aspirin (ASPIRIN 81) 81 Mg Tab, 81 MG PO DAILY, TAB 02/10/20 Omeprazole (Omeprazole) 20 Mg Cap, 40 MG PO DAILY PRN for HEARTBURN, CAP 02/10/20 Current Medications: Current Medications Medications (Trade) Dose Ordered Sig/Tracy Route PRN Reason Start Time Stop Time Status Last Admin Midazolam HCl 50 ml @ 1 mls/hr Q24H IV 01/12/25 17:15 01/12/25 16:44 General Examination Last Vital sign Vital Signs Date Time Temp Pulse Resp B/P (MAP) Pulse Ox O2 Delivery O2 Flow Rate FiO2 01/12/25 17:10 130 18 182/96 (124) 100 100 01/12/25 16:20 98.0 98.0 General Exam: General Examination: General: No apparent distress, appears comfortable. Cooperative HEENT: Normocephalic, atraumatic. Supple neck. No oropharynx lesion or exudate noted. Extremities: No noted edema or cyanosis Skin: No noted rashes or jaundice. Neuro Exam: Neurological Examination: Mental Status: Alert and oriented to person, place, and time. Speech is fluent. No dysarthria or aphasia noted. Cranial Nerves: Pupils equally round and reactive to light. Fundoscopic examination showed sharp optic discs. Visual sarabia intact. No dysconjugate g aze. Extraocular movements were intact. No ptosis on primary gaze or fatiguable ptosis was noted. Sensation intact in V1-V3 bilaterally. No facial asymmetry with symmetrical brow raise, smile, and puffing out cheeks. Hearing intact to finger rub bilaterally. Tongue midline with symmetrical palate elevation. No tongue atrophy or fasciculations noted. Intact shoulder shrug. Motor examination: Normal bulk and tone in the bilateral upper and lower extremities. No abnormal movements appreciated. Upper Extremities (Right/Left) Infraspinatus 5/5 Deltoid 5/5 Biceps 5/5 Triceps 5/5 Wrist Extension 5/5 Wrist Flexion 5/5 Finger Extension 5/5 Finger Flexion 5/5 Interosseous 5/5 ABP 5/5 Lower Extremities (Right/Left) Iliopsoas 5/5 Quadriceps 5/5 Hamstrings 5/5 Tibialis anterior 5/5 Gastrocnemius 5/5 Toe Extension 5/5 Reflexes: Jaw Jerk absent Pectoralis absent/absent Biceps 2/2 Triceps 2/2 Brachioradialis 2/2 Patellar 2/2 Ankle 2/2 Babinski's Down/Down Sensory: Upper Extremity - Intact to light touch, pinprick, vibration, and joint position. Lower Extremity - Intact to light touch, pinprick, vibration, and joint position. Coordination: Intact finger to nose and [id number] bilaterally. No dysmetria noted. Negative Romberg's. Gait: Normal stride and stance. Able to perform heel, toe, and heel-to-toe walking without difficulty. Able to squat and get up from a chair unassisted without difficulty. Labs: Laboratory Tests Test 01/12/25 16:43 01/12/25 17:19 01/12/25 17:42 Range/Units White Blood Count 12.1 H 4.4-10.8 10^3/uL Red Blood Count 4.18 4.0-5.20 10^6/uL Hemoglobin 14.7 12.2-16.2 g/dL Hematocrit 45.6 36.0-46.0 % Mean Corpuscular Volume 109.0 H 80.0-100.0 fL Mean Corpuscular Hemoglobin 35.1 H 28.0-32.0 pg Mean Corpuscular Hemoglobin Concent 32.2 32.0-36.0 g/dL Red Cell Distribution Width 15.1 H 11.8-14.3 % Platelet Count 144 140-450 10^3/uL Mean Platelet Volume 9.0 6.9-10.8 fL Neutrophils (%) (Auto) 37.0-80.0 % Lymphocytes (%) (Auto) 10.0-50.0 % Monocytes (%) (Auto) 0.0-12.0 % Basophils (%) (Auto) 0.0-2.0 % Neutrophils # (Auto) 1.6-8.6 10 ^3/uL Lymphocytes # (Auto) 0.4-5.4 10 ^3/uL Monocytes # (Auto) 0-1.3 10 ^3/uL Differential Total Cells Counted Pending Neutrophils % (Manual) Pending Band Neutrophils % (Manual) Pending Lymphocytes % (Manual) Pending Monocytes % (Manual) Pending Eosinophils % (Manual) Pending Basophils % (Manual) Pending Metamyelocytes % (manual) Pending Myelocytes % (Manual) Pending Promyelocytes % (Manual) Pending Blast Cells % (Manual) Pending Reactive Lymphocytes Pending Platelet Estimate Pending Sodium Level 137 136-145 mmol/L Potassium Level 4.0 3.5-5.1 mmol/L Chloride Level 104 98-107 mmol/L Carbon Dioxide Level 16 L 20-31 mmol/L Anion Gap 17 H 5-15 Blood Urea Nitrogen 7 L 9-23 mg/dL Creatinine 0.88 0.550-1.02 mg/dL Glomerular Filtration Rate Calc 75 >90 mL/min BUN/Creatinine Ratio 8.0 L 10.0-20.0 Serum Glucose 218 H 74-106 mg/dL Calcium Level 9.2 8.7-10.4 mg/dL Total Bilirubin 0.5 0.2-1.0 mg/dL Aspartate Amino Transferase (AST) 66 H 13-40 U/L Alanine Aminotransferase (ALT) 40 7-40 U/L Alkaline Phosphatase 104 46-116 U/L Troponin I High Sensitivity 4 Pending B-Type Natriuretic Peptide 333.94 0-100 pg/mL Total Protein 7.4 5.7-8.2 g/dL Albumin 4.2 3.2-4.8 g/dL Levetiracetam Level Pending Urine Color Pending Urine Clarity Pending Urine pH Pending Urine Specific [place] Pending Urine Protein Pending Urine Ketones Pending Urine Blood Pending Urine Nitrite Pending Urine Bilirubin Pending Urine Urobilinogen Pending Urine Leukocyte Esterase Pending Urine RBC Pending Urine Microscopic WBC Pending Urine Squamous Epithelial Cells Pending Urine Bacteria Pending Urine Glucose Pending Assessment/Plan Assessment and Plan:Adela Tamez is a 59 year old female who presents with Plan discussed with: Other (father) NATALYA QUINONES MD Jan 12, 2025 18:15
[2025-01-12 18:53] LABS: Urine Bacteria FEW /hpf (None Seen); Urine Blood 1+ /uL (Negative); Urine Clarity Turbid (Clear); Urine Color Light-Yellow (Yellow); Urine Protein, UAD 1+ (Negative); Urine Specific Gravity 1.034 (1.001-1.035); Urine Squamous Epithelial Cell FEW /hpf (<5); Urine Urobilinogen Normal (Negative); Urine WBC 20 /HPF (0-5)
--- NOTE | 2025-01-12 18:54 | ECG ---
[facility] Test Date: 2025-01-12 Test Time: 16:35:41 Pat Name: YAMILE URIBE Department: ED Room: [address] [place] [address] Gender: F Serger: nhung : 1965 Requested By: SAMARA VILLEGAS Order Number: [id number] Reading MD: Justin Calhoun Measurements Intervals [place] Rate: 125 P: 64 [place]: 133 QRS: 60 QRSD: 158 T: 130 QT: 355 QTc: 512 Interpretive Statements Sinus tachycardia Probable left atrial enlargement Nonspecific intraventricular conduction delay Anteroseptal infarct, age indeterminate Lateral leads are also involved Baseline wander in lead(s) I,II,III,aVR,aVL,aVF Electronically Signed On 01-16-2025 20:18:12 PDT by Justin Calhoun Please click the below link to view image of tracing.
[2025-01-12 19:06] LABS: Band Neutrophils % (manual) 1; Eosinophils % (manual) 2 (0-7); Lymphocytes % (manual) 50 (10.0-50.0); Monocytes % (manual) 6 (0-12); Reactive Lymphocytes 11
[2025-01-12 19:07] LABS: Anisocytosis Slight; Platelet Estimate Adequate
[2025-01-12 19:13] LABS: Lactic Acid w/Reflex 11.1 mmol/L (0.4-2.0)
[2025-01-12] MEDS: PROPOFOL 100 ML IV ONE (19:53)
[2025-01-12] MEDS: SODIUM BICARB 8.4% 50Meq/50ml SYR Vial IV ONE (19:53)
[2025-01-12] MEDS: NOREPINEPHRINE 8 MG/250ML KIT 250 ML IV ONE (19:53)
[2025-01-12] MEDS: NOREPINEPHRINE 8 MG/250ML KIT 250 ML IV SCH (19:54)
[2025-01-12] MEDS: PROPOFOL 100 ML IV SCH (19:54)
[2025-01-12] MEDS ORDERED: MORPHINE SULFATE INJ 2 MG/ml SYRG IV PRN (20:30)
[2025-01-12] MEDS ORDERED: NITROGLYCERIN 0.4 MG SL TAB SL PRN (20:30)
[2025-01-12 21:22] LABS: Base Excess -6.9 mmol/L (-2.0-3.0)
[2025-01-12] MEDS ORDERED: ACETAMINOPHEN 325 MG TAB PO PRN (21:30)
[2025-01-12] MEDS ORDERED: ONDANSETRON HCL 4 MG/2 ML VIAL IV PRN (21:30)
[2025-01-12] MEDS: PANTOPRAZOLE 40 MG/10 ML VIAL INJ IV ONE (21:30)
[2025-01-12] MEDS: cefTRIAXone 1GM/50ML D5W 50 ML IV ONE (21:30)
[2025-01-12] MEDS ORDERED: DEXTROSE (50%) 50ML SYRG IV PRN (21:30)
[2025-01-12] MEDS: SODIUM CHLORIDE 0.9% 1,000 ML IV ONE (21:30)
[2025-01-13] VITALS (48 sets, daily range): BP systolic 88–128; BP diastolic 43–75; PULSE 64–122; RESP 14–18; TEMP 98.7–99; O2SAT 96–100
[2025-01-13] MEDS: ACCU-CHEK COMFORT CURVE STRIP VI SCH ×2 (00:13→12:00)
[2025-01-13] MEDS: InsuLIN REG 1unit/0.01ml Soln (100units/ml) SC SCH ×2 (00:13→12:00)
--- NOTE | 2025-01-13 00:26 | DVH ---
CHEST RADIOGRAPH Indication: CENTRAL LINE PLACEMENT Technique: Single frontal view of the chest was obtained COMPARISON: XY CHEST PORTABLE on DOS: 01/12/25, CHEST PORTABLE on DOS: 06/10/21, CXRP on DOS: 06/10/21, CHEST PORTABLE on DOS: 02/09/20 FINDINGS: Lines and Tubes: Left internal jugular central venous catheter terminates within the right atrium. En dotracheal tube tip projects approximately 3.0 cm above the level of the jeanie. Enteric catheter unc hanged. Lungs: Clear Pleura: No effusion. No pneumothorax. Cardiomediastinal contours: Unremarkable Bones: Unremarkable IMPRESSION: 1. No acute disease. 2. New left internal jugular central venous catheter with tip projecting at the level of the right at rium. 3. Repositioned endotracheal tube.
--- NOTE | 2025-01-13 01:45 | DVHNC2 ---
Procedure - Endotracheal Intubation Procedure Note: Patient came with stroke code, possible postictal phase, previous history of INDICATION: Respiratory Insufficiency TSH less than 8, unable to protect airways, likely aspirating, shallow breathing, ALOC. PROCEDURE DIGITAL MARKETING APPRENTICE: Aniceto Huertas MD ATTENDING PHYSICIAN: : In Attendance of attending Dr. Pena. CONSENT: The procedure was emergent, the patient was unable to provide consent, and a designee was not immediately available. PROCEDURE SUMMARY: A time out was performed. My hands were washed immediately prior to the procedure. I wore a surgical cap, mask with protective eyewear, gown and gloves throughout the procedure. The patient was placed on a color television console monitor including continuous pulse oximetry. Rapid Sequence Intubation was conducted. Preoxygenation was done. The patient received Etomidate 30 mg for induction and Rocuronium 100 mg for adequate paralysis. Cricoid pressure was maintained from time induction agent was given to time of cuff balloon inflation. Using a GlideScope (video laryngoscope) and a size 8 endotracheal tube with stylet, the patient was intubated on the 1st attempt. The stylet was removed and cuff balloon was inflated. Appropriate endotracheal tube position was confirmed by direct visualization of vocal cord passage, fogging of the tube, CO2 colormetric indicator and symmetric breath sounds. The tube was secured at lips. Post intubation chest x-ray is pending at this time for confirmation. Ideally will keep the distal end 2.5 cm above jeanie. The procedure was assisted by the Respiratory Therapist on duty. Supervised by Dr. Pnea. ANICETO HUERTAS RESIDENT Jan 13, 2025 01:45
[2025-01-13 04:34] LABS: Amphetamine Screen, Urine Neg (NEGATIVE); Benzodiazephine Screen, Urine Neg (NEGATIVE)
[2025-01-13 04:35] LABS: Barbiturate Scree,Urine Neg (NEGATIVE); Cannabinoid Screen, Urine Neg (NEGATIVE); Cocaine Screen, Urine Neg (NEGATIVE); Opiate Scree,Urine Neg (NEGATIVE); Phencyclidine Screen, Urine Neg (NEGATIVE)
--- NOTE | 2025-01-13 05:08 | DVHHP2 ---
History of Present Illness Reason for Visit: Altered mental status History of Present Illness 59-year-old female presents for evaluation of altered mental status. Patient was noted to have right-sided weakness prior to the arrival to the emergency department and subsequently developed a seizure. In the emergency department marie griffith had multiple seizures continuously compromising airway there will for she was emergently intubated for airway protection. Currently patient is intubated and sedated. No further history could be obtained at the moment. Past Medical History Seizures, mi, hypertension, diabetes mellitus, CAD Past Surgical History PTCA Family History Noncontributory Smoke: No ALCOHOL: occassional Drugs: None Lives: with Family Review of Systems Review of Systems Review of systems are currently negative otherwise addressed in HPI. Allergies: Coded Allergies: NO KNOWN ALLERGIES (Unverified , 01/08/20) Medications Current Medications Medications Dose Ordered Sig/Tracy Route Start Time Stop Time Status Last Admin Dose Admin Midazolam HCl 50 ml @ 1 mls/hr Q24H IV 01/12/25 17:15 01/12/25 22:30 5 MLS/HR Fentanyl Citrate 250 ml @ 2.5 mls/hr Q24H IV 01/12/25 18:30 01/12/25 18:00 2.5 MLS/HR Norepinephrine Bitartrate 250 ml @ 3.75 mls/hr Q24H IV 01/12/25 19:30 01/12/25 19:54 3.75 MLS/HR Propofol 100 ml @ 2.925 mls/ hr Q24H IV 01/12/25 19:30 01/12/25 22:30 29.25 MLS/HR Nitroglycerin 0.4 mg Q5MINP PRN SL 01/12/25 20:30 Morphine Sulfate 2 mg Q30M PRN IV 01/12/25 20:30 Levetiracetam 100 ml @ 400 mls/hr BID IV 01/13/25 10:00 Ceftriaxone Sodium 50 ml @ 100 mls/hr DAILY@09 IV 01/13/25 09:00 Ondansetron HCl 4 mg Q4HP PRN IV 01/12/25 21:30 Enoxaparin Sodium 40 mg DAILY SC 01/13/25 10:00 Acetaminophen 650 mg Q6HP PRN PO 01/12/25 21:30 Diagnostic Test (Pha) 1 strip Q6HR 01/13/25 00:00 01/13/25 00:13 1 STRIP Insulin Human Regular Q6HR SC 01/13/25 00:00 01/13/25 00:13 6 UNITS Dextrose 50 ml UD PRN IV 01/12/25 21:30 Pantoprazole Sodium 40 mg DAILY IV 01/13/25 10:00 Exam Vital Signs Vital Signs Date Time Temp Pulse Resp B/P (MAP) Pulse Ox O2 Delivery O2 Flow Rate FiO2 01/13/25 04:45 112 18 112/69 (83) 97 01/13/25 04:01 Mechanical Ventilator+ 60 60 01/13/25 04:00 98.7 98.7 01/12/25 20:28 60 Exam Gen: 59-year-old female in mild distress, morbidly obese Skin: Warm, dry, normal color and texture, no rash. HEENT: Normocephalic atraumatic, mucous membranes moist and pink. Neck: Cervical and supraclavicular nodes normal without enlargement, trachea is midline, thyroid gland is normal without masses. Pulmonary: Intubated, diminished breath sounds bilaterally Cardiac: Regular rate and rhythm. No murmur Abdomen: Soft, nontender, nondistended, bowel sounds present all 4 quadrants, no guarding, no rigidity, no organomegaly. Extremities: No cyanosis, clubbing, no edema Neuro: Sedated Labs/Xrays ORDERING PHYSICIAN: SAMARA SALAS MD PROCEDURE(s): CTH - STROKE CTH REASON: R sided weakness, acute sz ORDER NUMBER(s): [id number], ACCESSION NUMBER(s): [id number] EXAM: CT STROKE CTH, CT ANGIO HEAD/Neck; DATE: 01/12/2025 04:47 PM HISTORY: R sided weakness, acute sz COMPARISON: HEAD WITHOUT CONTRAST on DOS: 06/10/21 TECHNIQUE: Axial images were obtained and reformatted in coronal and sagittal planes. All CT scans at this medical facility are performed using dose modulation techniques as appropriate to a performed exam including the following: Automated exposure control was utilized; adjustment of the MA and/or KV according to patient size; and use of iterative reconstruction technique. CT Dose: CTDI volume is 63.7 mGy. Dose-length product is 1127.79 mGy*cm FINDINGS: Supratentorial Region: No evidence for large acute territorial ischemia. Bilateral posterior parietal lobes encephalomalacia. No intracranial hemorrhage is noted. Confluent white matter hypoattenuating foci are noted bilaterally, which typically reflect chronic microvascular ischemic changes. Posterior Fossa: No acute abnormality. Brainstem: Unremarkable. Sellar/Suprasellar Region: Unremarkable. Ventricles, Cisterns, Sulci: Age-appropriate. Orbits: Unremarkable. Paranasal Sinuses: Unremarkable. Mastoid Air Cells: Unremarkable. Vasculature: Intracranial arterial calcified plaque formation noted. Bones/Soft Tissues: No acute abnormality. Other: None. IMPRESSION: 1. No large acute territorial ischemia or intracranial hemorrhage. 2. 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 Critical Result: Stroke Alert Findings discussed with SAMARA SALAS at 01/12/2025 05:21 PM, and acknowledged receipt and understanding of the findings. .. ATED BY: MANDI RICHARDSON ORDERING PHYSICIAN: SAMARA SALAS MD PROCEDURE(s): Cj - ANGIO HEAD/Neck REASON: R side weakness, acute sz ORDER NUMBER(s): [id number], ACCESSION NUMBER(s): [id number] ADDENDUM ADDENDUM # 1 EXAM: CT ANGIO HEAD/Neck; DATE: 01/12/2025 04:51 PM HISTORY: R side weakness, acute sz COMPARISON: ANGIO HEAD WO AND WITH on DOS: 06/11/21 TECHNIQUE: CTA imaging of the neck and head was performed following the uneventful administration of intravenous contrast. Sagittal and coronal reformatted images were obtained from the source data. 3D/MIP post-processing of the source data set was performed and reviewed by the radiologist. Radiation Dose Information: CT Dose: CTDI volume is 22.32 mGy. Dose-length product is 742.9 mGy*cm All CT scans at this medical facility are performed using dose modulation techniques as appropriate to a performed exam including the following: Automated exposure control was utilized; adjustment of the MA and/or KV according to patient size; and use of iterative reconstruction technique. FINDINGS: CTA Neck: Aortic Arch: Conventional branching. Right brachiocephalic artery: Unremarkable. Right carotid artery: Unremarkable. Right subclavian artery: Unremarkable. Right vertebral artery: Unremarkable. Left carotid artery: Unremarkable. Left subclavian artery: Unremarkable. Left vertebral artery: Unremarkable. Other: The patient is intubated. The ETT tip is not included in the field of view. Some fluid is seen in the posterior nasopharynx and oropharynx. There is fluid opacification of the sphenoid sinuses. Multilevel degenerative disc disease of the cervical spine noted. CTA Head: [place]: The arteries of [place] are patent, without evidence of aneurysm, stenosis or thrombosis. Atherosclerotic calcification of the bilateral carotid siphons noted. Atherosclerotic calcification of the bilateral intracranial vertebral arteries noted Dural venous: Grossly unremarkable. Other: None. IMPRESSION: 1. No large vessel occlusion or high-grade stenosis in the arteries of the head and neck. No aneurysm is identified. ORIGINAL REPORT EXAM: CT STROKE CTH, CT ANGIO HEAD/Neck; DATE: 01/12/2025 04:47 PM HISTORY: R sided weakness, acute sz COMPARISON: HEAD WITHOUT CONTRAST on DOS: 06/10/21 TECHNIQUE: Axial images were obtained and reformatted in coronal and sagittal planes. All CT scans at this medical facility are performed using dose modulation techniques as appropriate to a performed exam including the following: Automated exposure control was utilized; adjustment of the MA and/or KV according to patient size; and use of iterative reconstruction technique. CT Dose: CTDI volume is 63.7 mGy. Dose-length product is 1127.79 mGy*cm FINDINGS: Supratentorial Region: No evidence for large acute territorial ischemia. Bilateral posterior parietal lobes encephalomalacia. No intracranial hemorrhage is noted. Confluent white matter hypoattenuating foci are noted bilaterally, which typically reflect chronic microvascular ischemic changes. Posterior Fossa: No acute abnormality. Brainstem: Unremarkable. Sellar/Suprasellar Region: Unremarkable. Ventricles, Cisterns, Sulci: Age-appropriate. Orbits: Unremarkable. Paranasal Sinuses: Unremarkable. Mastoid Air Cells: Unremarkable. Vasculature: Intracranial arterial calcified plaque formation noted. Bones/Soft Tissues: No acute abnormality. Other: None. IMPRESSION: 1. No large acute territorial ischemia or intracranial hemorrhage. 2. 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 Critical Result: Stroke Alert Findings discussed with SAMARA SALAS at 01/12/2025 05:21 PM, and acknowledged receipt and understanding of the findings. .. ATED BY: BHARTI RICHARDSON MD DICTATED DATE/TIME: 01/12/251911 SIGNED BY: BHARTI RICHARDSON MD SIGNED DATE/TIME: 01/12/251911 CC: EXAM: CT STROKE CTH, CT ANGIO HEAD/Neck; DATE: 01/12/2025 04:47 PM HISTORY: R sided weakness, acute sz COMPARISON: HEAD WITHOUT CONTRAST on DOS: 06/10/21 TECHNIQUE: Axial images were obtained and reformatted in coronal and sagittal planes. All CT scans at this medical facility are performed using dose modulation techniques as appropriate to a performed exam including the following: Automated exposure control was utilized; adjustment of the MA and/or KV according to pat ient size; and use of iterative reconstruction technique. CT Dose: CTDI volume is 63.7 mGy. Dose-length product is 1127.79 mGy*cm FINDINGS: Supratentorial Region: No evidence for large acute territorial ischemia. Bilateral posterior parietal lobes encephalomalacia. No intracranial hemorrhage is noted. Confluent white matter hypoattenuating foci are noted bilaterally, which typically reflect chronic microvascular ischemic changes. Posterior Fossa: No acute abnormality. Brainstem: Unremarkable. Sellar/Suprasellar Region: Unremarkable. Ventricles, Cisterns, Sulci: Age-appropriate. Orbits: Unremarkable. Paranasal Sinuses: Unremarkable. Mastoid Air Cells: Unremarkable. Vasculature: Intracranial arterial calcified plaque formation noted. Bones/Soft Tissues: No acute abnormality. Other: None. IMPRESSION: 1. No large acute territorial ischemia or intracranial hemorrhage. 2. 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 Critical Result: Stroke Alert Findings discussed with SAMARA SALAS at 01/12/2025 05:21 PM, and acknowledged receipt and understanding of the findings. .. ATED BY: BHARTI RICHARDSON MD DICTATED DATE/TIME: 01/12/25 1722 SIGNED BY: BHARTI RICHARDSON MD SIGNED DATE/TIME: 01/12/25 1722ORDERING PHYSICIAN: MARIA TERESA GALVEZ RESIDENT PROCEDURE(s): CXR1 - CHEST XRAY 1 VIEW REASON: CENTRAL LINE PLACEMENT ORDER NUMBER(s): [id number], ACCESSION NUMBER(s): [id number] CHEST RADIOGRAPH Indication: CENTRAL LINE PLACEMENT Technique: Single frontal view of the chest was obtained COMPARISON: XY CHEST PORTABLE on DOS: 01/12/25, CHEST PORTABLE on DOS: 06/10/21, CXRP on DOS: 06/10/21, CHEST PORTABLE on DOS: 02/09/20 FINDINGS: Lines and Tubes: Left internal jugular central venous catheter terminates within the right atrium. Endotracheal tube tip projects approximately 3.0 cm above the level of the jeanie. Enteric catheter unchanged. Lungs: Clear Pleura: No effusion. No pneumothorax. Cardiomediastinal contours: Unremarkable Bones: Unremarkable IMPRESSION: 1. No acute disease. 2. New left internal jugular central venous catheter with tip projecting at the level of the right atrium. 3. Repositioned endotracheal tube. A Labs Test 01/13/25 00:11 01/12/25 19:28 01/12/25 18:35 01/12/25 17:42 Range/Units POC Glucose 276 H 70-106 mg/dl Lactic Acid Level 3.6 *H 0.4-2.0 mmol/L Blood Gas Specimen Type Arterial Blood Gas Sample Site Right radial Blood Gas Patient Temperature 37.0 Arterial Blood Date Drawn [id number] Arterial Blood pH 7.305 L 7.350-7.450 Arterial Blood Partial Pressure CO2 38.7 32.0-45.0 mmHg Arterial Blood Partial Pressure O2 261.5 H 83.0-108.0 mmHg Arterial Blood HCO3 18.8 L 21.0-28.0 mmol/L Arterial Blood Oxygen Saturation 99.7 H 94.0-98.0 % Arterial Blood Base Excess -6.9 L -2.0-3.0 mmol/L Arterial Blood Oxyhemoglobin 98.6 H 94.0-98.0 % Arterial Blood Carboxyhemoglobin 0.3 L 0.5-1.5 % Arterial Blood Methemoglobin 0.8 0.0-1.5 % Rene Test Modified Blood Gas Total Hemoglobin 15.20 12.0-16.0 g/dL Blood Gas Set Respiration Rate 18.0 Blood Gas Modality Vent - ac FiO2 % 100.0 Blood Gas Tidal Volume 500.0 Blood Gas PEEP or CPAP 5.0 Troponin I High Sensitivity 7 </=34 ng/L Test 01/12/25 17:19 01/12/25 16:43 Range/Units Urine Color Light-yellow Yellow Urine Clarity Turbid H Clear Urine pH 6.0 5.0-9.0 Urine Specific [place] 1.034 1.001-1.035 Urine Protein 1+ H Negative Urine Ketones Negative Negative Urine Blood 1+ H Negative /uL Urine Nitrite Negative Negative Urine Bilirubin Negative Negative Urine Urobilinogen Normal Negative mg/dL Urine Leukocyte Esterase 3+ Negative /uL Urine RBC 17 0 - 4 /hpf Urine Microscopic WBC 20 H 0-5 /HPF Urine Squamous Epithelial Cells Few <5 /hpf Urine Bacteria Few H None Seen /hpf Urine Glucose 2+ H Normal mg/dL Urine Opiates Screen Neg NEGATIVE Urine Fentanyl Screen Neg NEGATIVE Urine Barbiturates Screen Neg NEGATIVE Urine Phencyclidine Screen Neg NEGATIVE Urine Amphetamines Screen Neg NEGATIVE Urine Benzodiazepines Screen Neg NEGATIVE Urine Cocaine Screen Neg NEGATIVE Urine Cannabinoids Screen Neg NEGATIVE White Blood Count 12.1 H 4.4-10.8 10^3/uL Red Blood Count 4.18 4.0-5.20 10^6/uL Hemoglobin 14.7 12.2-16.2 g/dL Hematocrit 45.6 36.0-46.0 % Mean Corpuscular Volume 109.0 H 80.0-100.0 fL Mean Corpuscular Hemoglobin 35.1 H 28.0-32.0 pg Mean Corpuscular Hemoglobin Concent 32.2 32.0-36.0 g/dL Red Cell Distribution Width 15.1 H 11.8-14.3 % Platelet Count 144 140-450 10^3/uL Mean Platelet Volume 9.0 6.9-10.8 fL Neutrophils (%) (Auto) 37.0-80.0 % Lymphocytes (%) (Auto) 10.0-50.0 % Monocytes (%) (Auto) 0.0-12.0 % Basophils (%) (Auto) 0.0-2.0 % Neutrophils # (Auto) 1.6-8.6 10 ^3/uL Lymphocytes # (Auto) 0.4-5.4 10 ^3/uL Monocytes # (Auto) 0-1.3 10 ^3/uL Differential Total Cells Counted 100.0 100 Neutrophils % (Manual) 30 L 37.0-80.0 Band Neutrophils % (Manual) 1 Lymphocytes % (Manual) 50 10.0-50.0 Monocytes % (Manual) 6 0-12 Eosinophils % (Manual) 2 0-7 Basophils % (Manual) 0 0.0-2.0 Metamyelocytes % (manual) 0 Myelocytes % (Manual) 0 Promyelocytes % (Manual) 0 Blast Cells % (Manual) 0 Reactive Lymphocytes 11 Platelet Estimate Adequate Anisocytosis (manual) Slight Sodium Level 137 136-145 mmol/L Potassium Level 4.0 3.5-5.1 mmol/L Chloride Level 104 98-107 mmol/L Carbon Dioxide Level 16 L 20-31 mmol/L Anion Gap 17 H 5-15 Blood Urea Nitrogen 7 L 9-23 mg/dL Creatinine 0.88 0.550-1.02 mg/dL Glomerular Filtration Rate Calc 75 >90 mL/min BUN/Creatinine Ratio 8.0 L 10.0-20.0 Serum Glucose 218 H 74-106 mg/dL Calcium Level 9.2 8.7-10.4 mg/dL Total Bilirubin 0.5 0.2-1.0 mg/dL Aspartate Amino Transferase (AST) 66 H 13-40 U/L Alanine Aminotransferase (ALT) 40 7-40 U/L Alkaline Phosphatase 104 46-116 U/L Creatine Kinase 63 34-145 U/L B-Type Natriuretic Peptide 333.94 0-100 pg/mL Total Protein 7.4 5.7-8.2 g/dL Albumin 4.2 3.2-4.8 g/dL Assessment/Plan Assessment/Plan Assessment Status epilepticus Acute respiratory failure, intubated Diabetes mellitus Hypertension UTI Morbid obesity Plan Admit the patient to ICU to the hospitalist Nephrology consultation Keppra IV b.i.d. Maintenance IV fluids Rocephin Blood cultures pending Continue treatment per orders. Total critical care time excluding procedures performed is 55 minutes. Plan discussed with: Patient My Orders Orders - BORIS HARE Procedure Category Date Status Time Admit ADMIT 01/12/25 Transmitted 20:30 Nitroglycerin PHA 01/12/25 In Process Sublingual (Ntrostat 20:30 Morphine Sulfate PHA 01/12/25 In Process Injection 20:30 Stat Ekg For Chest KAILASH 01/12/25 In Process Pain 20:30 Notify Md Of Changes KAILASH 01/12/25 In Process From Base 20:30 [employer] For KAILASH 01/12/25 In Process 24 Hours 20:30 Emergency Dysrhythmia KAILASH 01/12/25 In Process Protocol 20:30 Rhythm Strips Once KAILASH 01/12/25 In Process Every Shift 20:30 Oxygen By Nasal RT 01/12/25 Transmitted Cannula 20:30 Levetiracetam 1000 PHA 01/13/25 In Process Mg/100ml (Levetiracet 10:00 Sodium Chloride 0.9% PHA 01/12/25 In Process 21:30 Ceftriaxone 1gm/50ml PHA 01/13/25 In Process D5w (Rocephin) 09:00 Blood Culture ERIC 01/12/25 Uncollected 21:28 * Neurology Consult CONS 01/12/25 Transmitted 21:28 Ondansetron Hcl PHA 01/12/25 In Process (Zofran) 21:30 Enoxaparin Sodium PHA 01/13/25 In Process (Lovenox) 10:00 Complete Blood Count LAB 01/13/25 Logged 04:00 Comprehensive LAB 01/13/25 Logged Metabolic Panel 04:00 Condition: Critical KAILASH 01/12/25 In Process 21:28 Acetaminophen Tablet PHA 01/12/25 In Process (Tylenol Tablet) 21:30 Maintain Bed Rest KAILASH 01/12/25 In Process 21:28 Sequential KAILASH 01/12/25 In Process Compression Device Glucose Blood PHA 01/13/25 In Process (Accu-Chek Comfort 00:00 Insulin R (Human) PHA 01/13/25 In Process (Insulin R) 00:00 Dextrose 50% Syringe PHA 01/12/25 In Process 21:30 Pantoprazole PHA 01/13/25 In Process (Protonix) 10:00 Date of Service: Jan 12, 2025 Billing Provider: BORIS HARE Common Visit Codes: [id number] CARE 30-74 MIN BORIS HARE AGACNP Jan 13, 2025 05:08
[2025-01-13 05:46] LABS: Basophils # (auto) 0.1 10 ^3/uL (0-0.2); Eosinophils # (auto) 0 10 ^3/uL (0-0.8); Lymphocytes # (auto) 2.2 10 ^3/uL (0.4-5.4); Monocytes # (auto) 0.8 10 ^3/uL (0-1.3); Nucleated Red Blood Cells % 0.1 %
[2025-01-13 05:48] LABS: Basophils % (auto) 0.4 % (0.0-2.0); Hematocrit 41.6 % (36.0-46.0); Hemoglobin 14.2 g/dL (12.2-16.2); Lymphocytes % (auto) 15.8 % (10.0-50.0); Mean Corpuscular Hemoglobin 35.6 pg (28.0-32.0); Mean Corpuscular Hgb Conc. 34.1 g/dL (32.0-36.0); Mean Corpuscular Volume 104.4 fL (80.0-100.0); Monocytes % (auto) 5.6 % (0.0-12.0); Neutrophils # (auto) 11.1 10 ^3/uL (1.6-8.6); Neutrophils % (auto) 78.2 % (37.0-80.0); Platelet Count (auto) 164 10^3/uL (140-450); Red Blood Cells 3.98 10^6/uL (4.0-5.20); Red Cell Distribution Width 14.6 % (11.8-14.3); White Blood Cell 14.2 10^3/uL (4.4-10.8)
--- NOTE | 2025-01-13 05:53 | DVHNC2 ---
SHAGUFTA GARNICA RESIDENT 01/13/25 0553: Procedure - PROCEDURE [employer] TOUR GUIDE: Resident Garnica ATTENDING PHYSICIAN: Dr. Palacios The procedure was emergent, the patient was intubated, unable to provide consent, and a designee was not immediately available. PROCEDURE SUMMARY: [facility] Central Line Insertion Practices form was completed by an independent observer starting with the first handwash prior to starting sterile technique. A time out was performed. My hands were washed immediately prior to the procedure. I wore a surgical cap, mask with protective eyewear, full gown and sterile gloves throughout the procedure. The patient was placed in Trendelenburg position. LEFT chest region was prepped using chlorhexidine scrub and draped in sterile fashion using a full drape and sterile probe cover and sterile gel employed. The medial and lateral heads of the sternocleidomastoid muscle were identified as was the carotid pulse. The Internal Jugular vein was identified using the ultrasound. Anesthesia was achieved over the vein using 1% lidocaine. Using real-time out of plane guidance, the introducer needle was inserted into the Internal Jugular vein under direct ultrasound visualization. Venous blood was withdrawn. The syringe was removed and a guidewire was advanced into the introducer needle. The guidewire was visualized in the Internal Jugular Vein by ultrasound. A small incision was made at the skin surface with a scalpel and the introducer needle was exchanged for a dilator over the guidewire. After appropriate dilation was obtained, the dilator was exchanged over the wire for a central venous catheter. The wire was removed and the catheter was sutured in place. A sterile sorbaview shield was placed over the catheter at the insertion site. The patient tolerated the procedure without any hemodynamic compromise. At time of procedure completion, all ports aspirated and flushed properly. Post-procedure chest x-ray showed: New left internal jugular central venous catheter with tip projecting at the level of the right atrium and no pneumothorax. Estimated blood loss is 5ml. SANDRINE PALACIOS MD 01/14/25 1143: Date of Service: Jan 13, 2025 Billing Provider: SANDRINE PALACIOS MD Common Visit Codes: PROCEDURE ONLY Procedure Codes: [id number] NON-TUNNEL CV CATH SHAGUFTA GARNICA Jan 13, 2025 05:53 SANDRINE PALACIOS MD Jan 14, 2025 11:43
[2025-01-13 06:08] LABS: Alanine Aminotransferase 36 U/L (7-40); Albumin 3.7 g/dL (3.2-4.8); Alkaline Phosphatase 84 U/L (46-116); Anion Gap 13 (5-15); BUN/Creatinine Ratio 8.8 (10.0-20.0); Calcium 8.9 mg/dL (8.7-10.4); Chloride 103 mmol/L (98-107); Potassium 4.3 mmol/L (3.5-5.1); Sodium 136 mmol/L (136-145); Total Protein 6.6 g/dL (5.7-8.2)
[2025-01-13 06:09] LABS: Bilirubin, Total 0.8 mg/dL (0.2-1.0)
[2025-01-13 06:26] LABS: Aspartate Aminotransferase 64 U/L (13-40); Blood Urea Nitrogen 9 mg/dL (9-23); Carbon Dioxide 20 mmol/L (20-31); Glucose 293 mg/dL (74-106)
[2025-01-13 07:27] LABS: Base Excess -4.3 mmol/L (-2.0-3.0)
[2025-01-13] MEDS ORDERED: Jevity 1.2 Cal/Fiber 1 Liter GT SCH (09:00)
[2025-01-13] MEDS ORDERED: DEXTROSE (50%) 50ML SYRG IV PRN (09:00)
[2025-01-13] MEDS ORDERED: cefTRIAXone 1GM/50ML D5W 50 ML IV SCH (09:00)
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
[2025-01-13] MEDS: PIPERACILLIN-TAZOB 3.375GM 100 ML IV ONE (09:49)
[2025-01-13] MEDS: levETIRAcetam 1000 mg/100ml 100 ML IV SCH (10:00)
[2025-01-13] MEDS: ENOXAPARIN SOD 40 MG/0.4 ML SYRINGE SC SCH (10:00)
[2025-01-13] MEDS: PANTOPRAZOLE 40 MG/10 ML VIAL INJ IV SCH (10:00)
[2025-01-13] MEDS ORDERED: LORazepam 2MG/ML-1ML VIAL IV PRN (10:30)
[2025-01-13] MEDS: ASPirin 300 MG RECTAL SUPP PR ONE (10:30)
[2025-01-13 10:37] LABS: Lactic Acid w/Reflex 2.4 mmol/L (0.4-2.0)
[2025-01-13 10:46] LABS: Rapid Influenza A Negative (Negative); Rapid Influenza B Negative (Negative)
[2025-01-13 10:47] LABS: COVID19 ANTIGEN SOFIA FIA NEGATIVE (NEGATIVE)
[2025-01-13 10:52] LABS: Folate (Folic Acid) 5.41 ng/mL (>5.38)
--- NOTE | 2025-01-13 11:56 | DVHPN2 ---
Subjective Patient chemically sedated Reviewed: Care Plan, H&P, Labs, Medications Changes from previous H/P or p: No Changes Objective Vitals Vital Signs Date Time Temp Pulse Resp B/P (MAP) Pulse Ox O2 Delivery O2 Flow Rate FiO2 01/13/25 09:45 65 19 104/59 (74) 98 01/13/25 09:41 30 01/13/25 07:30 Mechanical Ventilator+ 60 01/13/25 04:00 98.7 98.7 Intake/Output Intake and Output 01/13/25 07:00 Intake Total 816.50 ml Output Total 300 ml Balance 516.50 ml Intake Oral 0 ml IV Total 816.50 ml Output Urine Total 300 ml Stool Total 0 ml General Appearance: Other (Unable to assess) HEENT: Atraumatic, PERRLA Cardiovascular: Normal S1, Normal S2 Musculoskeletal: Other (Unable to assess) Neuro: Other (Unable to assess) Psych/Mental Status: Other (Unable to assess) Medications Current Medications Medications Dose Ordered Sig/Tracy Route Start Time Stop Time Status Last Admin Dose Admin Midazolam HCl 50 ml @ 1 mls/hr Q24H IV 01/12/25 17:15 01/13/25 07:27 5 MLS/HR Fentanyl Citrate 250 ml @ 2.5 mls/hr Q24H IV 01/12/25 18:30 01/12/25 18:00 2.5 MLS/HR Norepinephrine Bitartrate 250 ml @ 3.75 mls/hr Q24H IV 01/12/25 19:30 01/13/25 05:26 26.25 MLS/HR Propofol 100 ml @ 2.925 mls/ hr Q24H IV 01/12/25 19:30 01/13/25 07:06 29.25 MLS/HR Levetiracetam 100 ml @ 400 mls/hr BID IV 01/13/25 10:00 Enoxaparin Sodium 40 mg DAILY SC 01/13/25 10:00 Pantoprazole Sodium 40 mg DAILY IV 01/13/25 10:00 Diagnostic Test (Pha) 1 strip Q6HR 01/13/25 12:00 Insulin Human Regular Q6HR SC 01/13/25 12:00 Dextrose 50 ml UD PRN IV 01/13/25 09:00 Enteral Nutritional Formula 1,000 ml 30ML/HR GT 01/13/25 09:00 Piperacillin Sod/ Tazobactam Sod 100 ml @ 25 mls/hr Q8HR IV 01/13/25 16:00 Lorazepam 1 mg Q5MINP PRN IV 01/13/25 10:30 Aspirin 300 mg DAILY OR 01/14/25 10:00 Laboratory Results Laboratory Tests 01/13/25 05:02 Chemistry Test 01/12/25 16:43 01/13/25 05:02 Albumin 4.2 g/dL (3.2-4.8) 3.7 g/dL (3.2-4.8) Calcium Level 9.2 mg/dL (8.7-10.4) 8.9 mg/dL (8.7-10.4) Total Protein 7.4 g/dL (5.7-8.2) 6.6 g/dL (5.7-8.2) Cardiac Markers Test 01/12/25 16:43 B-Type Natriuretic Peptide 333.94 pg/mL (0-100) LFT Test 01/12/25 16:43 01/13/25 05:02 Alanine Aminotransferase (ALT) 40 U/L (7-40) 36 U/L (7-40) Alkaline Phosphatase 104 U/L (46-116) 84 U/L (46-116) Aspartate Amino Transferase (AST) 66 U/L (13-40) H 64 U/L (13-40) H Total Bilirubin 0.5 mg/dL (0.2-1.0) 0.8 mg/dL (0.2-1.0) HgA1c, TSH Test 01/13/25 05:02 Hemoglobin A1c 7.3 % A1C (<5.7) H Urinalysis Test 01/12/25 17:19 Urine Color Light-yellow (Yellow) Urine Clarity Turbid (Clear) H Urine pH 6.0 (5.0-9.0) Urine Specific [place] 1.034 (1.001-1.035) Urine Protein 1+ (Negative) H Urine Ketones Negative (Negative) Urine Blood 1+ /uL (Negative) H Urine Nitrite Negative (Negative) Urine Bilirubin Negative (Negative) Urine Urobilinogen Normal mg/dL (Negative) Urine Leukocyte Esterase 3+ /uL (Negative) Urine RBC 17 /hpf (0 - 4) Urine Microscopic WBC 20 /HPF (0-5) H Urine Squamous Epithelial Cells Few /hpf (<5) Urine Bacteria Few /hpf (None Seen) H Urine Glucose 2+ mg/dL (Normal) H Blood Gas Results Test 01/12/25 18:35 01/13/25 07:23 Arterial Blood pH 7.305 (7.350-7.450) 7.372 (7.350-7.450) FiO2 % 100.0 40.0 Labs and/or images reviewed: Labs reviewed by me, Image(s) reviewed by me Assessment/Plan Assessment/Plan Impression: -breakthrough seizure -metabolic encephalopathy from seizure -obesity -history of CVA -history of epilepsy -UTI -leukocytosis, rule out sepsis -diabetes mellitus -history of [place] -hypotension, questionable shock Plan: -neurology consultation: Recommendations reviewed. -continue current sedation -continue current vasopressor therapy -continue antibiotic therapy with Zosyn -regular insulin sliding scale -start IV hydration -continue antiepileptics per Neurology -repeat labs, chest x-ray, ABG in a.m. Critical care time spent with patient discussing and formulating plan of care: 40 minutes. This does not include time spent performing procedures. This medical document was created using an electronic medical record system with [employer] dictation system. Although this document has been carefully reviewed, there may still be some phonetic and typographical errors. These areas are purely typographical due to imperfections of the software programs, and do not reflect any compromise in the patient's medical care. Plan discussed with: Patient, Other (RN) My Orders Orders - KINGSLEY CASTRO NP Procedure Category Date Status Time Basic Metabolic Panel LAB 01/14/25 Verified 05:00 Basic Metabolic Panel LAB 01/15/25 Verified 05:00 Basic Metabolic Panel LAB 01/16/25 Verified 05:00 Complete Blood Count LAB 01/14/25 Verified 05:00 Complete Blood Count LAB 01/15/25 Verified 05:00 Complete Blood Count LAB 01/16/25 Verified 05:00 Chest Portable XY 01/14/25 Logged 04:00 Date of Service: Jan 13, 2025 Billing Provider: KINGSLEY CASTRO NP Common Visit Codes: [id number] CARE 30-74 MIN KINGSLEY CASTRO NP Jan 13, 2025 11:56
[2025-01-13] MEDS: SODIUM CHLORIDE 0.9% 1,000 ML IV SCH (12:00)
--- NOTE | 2025-01-13 12:11 | DVHSR ---
APPROVED REPORT EXAM: LIMITED Two-dimensional and M-mode echocardiogram with Doppler and color Doppler. Blood Pressure: 110/61 mmHg INDICATION Dyspnea ?CHF RISK FACTORS Obesity: Height: 5'6, Weight: 254 DIMENSIONS LVDd5.0 (3.8-5.7cm)LA (2D)4.2 (1.9-4.0cm)Aortic Root3.6 (2.0-3.7cm) LVDs3.7 (2.5-4.0cm)LA (MM) (1.9-4.0cm)Aortic Cusp Exc1.7 (1.5-2.0cm) EF (%) 55.0 (55-70%)Rt. Atrium (1.9-4.0cm)Asc. Aorta3.5 cm IVSd1.2 (0.7-1.1cm)RV (D) (1.8-2.4cm) PWd0.4 (0.7-1.1cm) Mitral Valve MitralMitral Stenosis E/A ratio0.02D MVAcm2 Aortic Valve Aortic ValveAortic Stenosis LVOT Diameter2.3 (1.8-2.4cm)Doppler AVAcm2 Pulmonic Valve V20.99m/s Other Information Quality : Technically LimitedTechnically LimitedRhythm : Technically limited study due to on vent.patient position.body habitus. Conclusion LVEF normal 50-55%, RV function normal AV not well visualized
[2025-01-13] MEDS: PIPERACILLIN-TAZOB 3.375GM 100 ML IV SCH (16:00)
[2025-01-14] VITALS (109 sets, daily range): BP systolic 74–151; BP diastolic 33–81; PULSE 52–90; RESP 10–24; TEMP 97.7–99.3; O2SAT 30–100
[2025-01-14 03:56] LABS: Basophils # (auto) 0 10 ^3/uL (0-0.2); Eosinophils % (auto) 0.4 % (0.0-7.0); Hemoglobin 13.4 g/dL (12.2-16.2); Nucleated Red Blood Cells % 0.1 %
[2025-01-14 03:59] LABS: Basophils % (auto) 0.4 % (0.0-2.0); Eosinophils # (auto) 0.1 10 ^3/uL (0-0.8); Hematocrit 39.2 % (36.0-46.0); Lymphocytes # (auto) 2.7 10 ^3/uL (0.4-5.4); Lymphocytes % (auto) 22.4 % (10.0-50.0); Mean Corpuscular Hemoglobin 35.5 pg (28.0-32.0); Mean Corpuscular Hgb Conc. 34.2 g/dL (32.0-36.0); Mean Corpuscular Volume 103.8 fL (80.0-100.0); Monocytes # (auto) 0.7 10 ^3/uL (0-1.3); Monocytes % (auto) 5.5 % (0.0-12.0); Neutrophils # (auto) 8.5 10 ^3/uL (1.6-8.6); Neutrophils % (auto) 71.3 % (37.0-80.0); Platelet Count (auto) 119 10^3/uL (140-450); Red Blood Cells 3.77 10^6/uL (4.0-5.20); White Blood Cell 11.9 10^3/uL (4.4-10.8)
[2025-01-14 04:03] LABS: Sodium 143 mmol/L (136-145)
[2025-01-14 04:04] LABS: Anion Gap 12 (5-15); Carbon Dioxide 22 mmol/L (20-31)
[2025-01-14 04:08] LABS: Calcium 8.6 mg/dL (8.7-10.4); Chloride 109 mmol/L (98-107); Potassium 3.4 mmol/L (3.5-5.1)
[2025-01-14 04:09] LABS: BUN/Creatinine Ratio 9.4 (10.0-20.0)
[2025-01-14 04:10] LABS: Blood Urea Nitrogen 8 mg/dL (9-23); Glucose 242 mg/dL (74-106)
--- NOTE | 2025-01-14 06:13 | DVH ---
EXAM: XR Chest, 1 View CLINICAL INDICATION: device placement TECHNIQUE: Frontal view of the chest. COMPARISON: XY CHEST XRAY 1 VIEW on DOS: 01/13/25, XY CHEST PORTABLE on DOS: 01/12/25, CHEST PORTABLE on DOS: 06/10/21, CXRP on DOS: 06/10/21, CHEST PORTABLE on DOS: 02/09/20 FINDINGS: LUNGS AND PLEURAL SPACES: Pulmonary congestion and edema. Pneumonia cannot be excluded. No pneumot horax. HEART: Unremarkable. No cardiomegaly. MEDIASTINUM: Unremarkable. Normal mediastinal contour. BONES/JOINTS: Unremarkable. No acute fracture. TUBES, LINES AND DEVICES: The endotracheal tube (ETT) is in satisfactory position. Enteric tube ti p cannot be seen but is below the diaphragm. Left internal jugular central venous catheter tip in th e superior vena cava. OTHER FINDINGS: . . . IMPRESSION: Pulmonary congestion and edema. Pneumonia cannot be excluded.
[2025-01-14 08:31] LABS: Base Excess -2.6 mmol/L (-2.0-3.0)
[2025-01-14] MEDS: Glucerna 1.2 Cal 1Liter BOTTLE GT SCH (08:44)
--- NOTE | 2025-01-14 09:29 | DVHPN2 ---
Subjective Patient chemically sedated Reviewed: Care Plan, H&P, Labs, Medications Changes from previous H/P or p: No Changes General: Per HPI Objective Vitals Vital Signs Date Time Temp Pulse Resp B/P (MAP) Pulse Ox O2 Delivery O2 Flow Rate FiO2 01/14/25 08:19 55 18 150/81 (104) 98 30 01/14/25 08:00 Mechanical Ventilator+ 01/14/25 07:00 98.8 209.8 01/13/25 22:00 60 Intake/Output Intake and Output 01/14/25 07:00 Intake Total 1599.525 ml Output Total 1700 ml Balance -100.475 ml Intake Oral 0 ml IV Total 1599.525 ml Output Urine Total 1700 ml Stool Total 0 ml General Appearance: moderate distress, Other (Unable to assess) HEENT: Atraumatic, PERRLA Lungs: Clear to auscultation, Normal air movement, Other (Mechanical ventilation) Cardiovascular: Normal S1, Normal S2 Musculoskeletal: Other (Unable to assess) Neuro: Other (Unable to assess) Skin: Dry, Intact Psych/Mental Status: Other (Unable to assess) Medications Current Medications Medications Dose Ordered Sig/Tracy Route Start Time Stop Time Status Last Admin Dose Admin Midazolam HCl 50 ml @ 1 mls/hr Q24H IV 01/12/25 17:15 01/14/25 00:58 5 MLS/HR Fentanyl Citrate 250 ml @ 2.5 mls/hr Q24H IV 01/12/25 18:30 01/14/25 03:51 12.5 MLS/HR Norepinephrine Bitartrate 250 ml @ 3.75 mls/hr Q24H IV 01/12/25 19:30 01/14/25 03:47 15 MLS/HR Propofol 100 ml @ 2.925 mls/ hr Q24H IV 01/12/25 19:30 01/14/25 05:40 23.4 MLS/HR Levetiracetam 100 ml @ 400 mls/hr BID IV 01/13/25 10:00 01/13/25 22:43 400 MLS/HR Enoxaparin Sodium 40 mg DAILY SC 01/13/25 10:00 01/13/25 10:00 40 MG Pantoprazole Sodium 40 mg DAILY IV 01/13/25 10:00 01/13/25 10:00 40 MG Diagnostic Test (Pha) 1 strip Q6HR 01/13/25 12:00 01/14/25 05:33 1 STRIP Insulin Human Regular Q6HR SC 01/13/25 12:00 01/14/25 05:34 6 UNITS Dextrose 50 ml UD PRN IV 01/13/25 09:00 Piperacillin Sod/ Tazobactam Sod 100 ml @ 25 mls/hr Q8HR IV 01/13/25 16:00 01/14/25 05:33 25 MLS/HR Lorazepam 1 mg Q5MINP PRN IV 01/13/25 10:30 Aspirin 300 mg DAILY SC 01/14/25 10:00 Sodium Chloride 1,000 ml @ 100 mls/hr Q10H IV 01/13/25 12:00 01/13/25 22:00 100 MLS/HR Insulin Glargine 10 units DAILY@1000 SC 01/14/25 10:00 Potassium Chloride 50 ml @ 25 mls/hr Q2H IV 01/14/25 08:45 01/14/25 12:44 Enteral Nutritional Formula 1,000 ml 30ML/HR GT 01/14/25 08:45 01/14/25 08:44 1,000 ML Laboratory Results Laboratory Tests 01/14/25 03:06 Chemistry Test 01/14/25 03:06 Calcium Level 8.6 mg/dL (8.7-10.4) L Urinalysis Test 01/12/25 17:19 Urine Color Light-yellow (Yellow) Urine Clarity Turbid (Clear) H Urine pH 6.0 (5.0-9.0) Urine Specific [place] 1.034 (1.001-1.035) Urine Protein 1+ (Negative) H Urine Ketones Negative (Negative) Urine Blood 1+ /uL (Negative) H Urine Nitrite Negative (Negative) Urine Bilirubin Negative (Negative) Urine Urobilinogen Normal mg/dL (Negative) Urine Leukocyte Esterase 3+ /uL (Negative) Urine RBC 17 /hpf (0 - 4) Urine Microscopic WBC 20 /HPF (0-5) H Urine Squamous Epithelial Cells Few /hpf (<5) Urine Bacteria Few /hpf (None Seen) H Urine Glucose 2+ mg/dL (Normal) H Blood Gas Results Test 01/14/25 06:37 Arterial Blood pH 7.442 (7.350-7.450) FiO2 % 30.0 Microbiology Microbiology Date/Time Source Procedure Growth Status 01/13/25 10:05 Nose MRSA Screen - Final Complete 01/12/25 17:19 Sputum Expectorated Sputum Gram Stain - Final Resulted 01/12/25 17:19 Sputum Expectorated Sputum Respiratory Culture - Preliminary Resulted Labs and/or images reviewed: Labs reviewed by me, Image(s) reviewed by me Assessment/Plan Assessment/Plan Impression: -breakthrough seizure -metabolic encephalopathy from seizure -obesity -history of CVA -history of epilepsy -UTI -leukocytosis, rule out sepsis -diabetes mellitus -history of [place] -hypotension, questionable shock Plan: Events: Patient with noted hyperglycemia. WBCs improving. Plans for spontaneous breathing trial tomorrow -Change tube feedings to Glucerna -add Lantus 10 units daily -neurology consultation: Recommendations reviewed. -continue current sedation -continue current vasopressor therapy -continue antibiotic therapy with Zosyn -regular insulin sliding scale -continue antiepileptics per Neurology -repeat labs, chest x-ray, ABG in a.m. Critical care time spent with patient discussing and formulating plan of care: 40 minutes. This does not include time spent performing procedures. This medical document was created using an electronic medical record system with [employer] dictation system. Although this document has been carefully reviewed, there may still be some phonetic and typographical errors. These areas are purely typographical due to imperfections of the software programs, and do not reflect any compromise in the patient's medical care. Plan discussed with: Patient, Other (RN) My Orders Orders - KINGSLEY CASTRO [employer] Procedure Category Date Status Time Basic Metabolic Panel LAB 01/15/25 Verified 05:00 Basic Metabolic Panel LAB 01/16/25 Verified 05:00 Complete Blood Count LAB 01/15/25 Verified 05:00 Complete Blood Count LAB 01/16/25 Verified 05:00 Chest Portable XY 01/14/25 Resulted 04:00 Sodium Chloride 0.9% PHA 01/13/25 In Process 12:00 Mrsa Screen ERIC 01/13/25 In Process 23:26 Insulin Lantus PHA 01/14/25 In Process (Glargine) (Lantus) 10:00 Potassium Chl PHA 01/14/25 In Process 20meq/50ml (Potassium 08:45 Nutritional PHA 01/14/25 In Process Supplements (Glucerna 08:45 Date of Service: Jan 14, 2025 Billing Provider: KINGSLEY CASTRO NP Common Visit Codes: [id number] CARE 30-74 MIN KINGSLEY CASTRO NP Jan 14, 2025 09:29
[2025-01-14] MEDS: INSULIN LANTUS (GLARGINE) 1 /0.01ml (100units/ml) SC SCH (10:09)
[2025-01-14] MEDS: POTASSIUM CHL 20MEQ/50ML 50 ML IV SCH (10:10)
[2025-01-14] MEDS: ASPirin 300 MG RECTAL SUPP PR SCH (10:32)
--- NOTE | 2025-01-14 10:48 | DVHPN2 ---
Progress Note - Dictate Date Seen: Jan 14, 2025 Medical Necessity Reason Pt with a Central, PICC or Fol: Yes The following are medically ne: Central Line, Woods Catheter Subjective Ms. Tamez is a 59 years old right-handed female with a history of hypertension, diabetes, dyslipidemia, coronary artery disease, heart attack, chronic stroke, seizure disorder, the patient came to the hospital because of possible stroke. I saw her on 02/10/2020 for breakthrough seizure I have seen and examined the patient, I have discussed with her nurse, she was noted, sedated, nonresponsive stroke painful stimuli, no gag reflexes She was agitated with less sedation Urinalysis, 01/12/2025: WBC: 20, urine leukocyte esterase: 3+ UDS, 01/12/2025: Negative CBC, 01/12/2025: Metabolic acidosis WBC/HB/PLT/MCV, 01/13/2025: 15.2/15.2/164/104.4 CMP, 01/13/2025: Unremarkable Lactic acid, 01/13/2020 5:11.1, 3.6 01/14/2020 5:2.4, 2.4 Vitamin B12, 01/13/2025: 567 Folic acid, 01/13/2025: 5.41 Carotid Doppler, 01/12/2025: No large vessel occlusion or high-grade stenosis in the arteries of the head and neck. No aneurysm is identified. CT head, 02/09/2020: 1. No intracranial hemorrhage. 2. Encephalomalacia in the right posterior parietal/temporal lobe and in the left occipital lobe laterally consistent with old infarcts. 3. Old lacunar infarcts in the left basal ganglia and left anterior limb of internal capsule. 4. Mild atrophy. 5. Atherosclerosis. 6. Otherwise unremarkable noncontrast CT scan of the brain CT head, 01/12/2025: 1. No large acute territorial ischemia or intracranial hemorrhage. 2. 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 vital signs Vital Sign Date Time Temp Pulse Resp B/P (MAP) Pulse Ox O2 Delivery O2 Flow Rate FiO2 01/14/25 10:33 85/42 01/14/25 10:02 53 18 100 30 01/14/25 08:00 Mechanical Ventilator+ 01/14/25 07:00 98.8 209.8 01/13/25 22:00 60 Total Intake and Output 01/13/25 01/13/25 01/14/25 15:00 23:00 07:00 Intake Total 510.75 ml 524.00 ml 564.775 ml Output Total 1700 ml Balance 510.75 ml 524.00 ml -1135.225 ml medications Current Medications Medications Dose Ordered Sig/Tracy Route Start Time Stop Time Status Last Admin Dose Admin Midazolam HCl 50 ml @ 1 mls/hr Q24H IV 01/12/25 17:15 01/14/25 00:58 5 MLS/HR Fentanyl Citrate 250 ml @ 2.5 mls/hr Q24H IV 01/12/25 18:30 01/14/25 03:51 12.5 MLS/HR Norepinephrine Bitartrate 250 ml @ 3.75 mls/hr Q24H IV 01/12/25 19:30 01/14/25 03:47 15 MLS/HR Propofol 100 ml @ 2.925 mls/ hr Q24H IV 01/12/25 19:30 01/14/25 10:20 11.7 MLS/HR Levetiracetam 100 ml @ 400 mls/hr BID IV 01/13/25 10:00 01/14/25 10:11 400 MLS/HR Enoxaparin Sodium 40 mg DAILY SC 01/13/25 10:00 01/14/25 10:11 40 MG Pantoprazole Sodium 40 mg DAILY IV 01/13/25 10:00 01/14/25 10:11 40 MG Diagnostic Test (Pha) 1 strip Q6HR 01/13/25 12:00 01/14/25 05:33 1 STRIP Insulin Human Regular Q6HR SC 01/13/25 12:00 01/14/25 05:34 6 UNITS Dextrose 50 ml UD PRN IV 01/13/25 09:00 Piperacillin Sod/ Tazobactam Sod 100 ml @ 25 mls/hr Q8HR IV 01/13/25 16:00 01/14/25 05:33 25 MLS/HR Lorazepam 1 mg Q5MINP PRN IV 01/13/25 10:30 Aspirin 300 mg DAILY VT 01/14/25 10:00 01/14/25 10:32 300 MG Sodium Chloride 1,000 ml @ 100 mls/hr Q10H IV 01/13/25 12:00 01/13/25 22:00 100 MLS/HR Insulin Glargine 10 units DAILY@1000 SC 01/14/25 10:00 01/14/25 10:09 10 UNITS Potassium Chloride 50 ml @ 25 mls/hr Q2H IV 01/14/25 08:45 01/14/25 12:44 01/14/25 10:10 25 MLS/HR Enteral Nutritional Formula 1,000 ml 30ML/HR GT 01/14/25 08:45 01/14/25 08:44 1,000 ML objective The patient is well-nourished and well-developed with no distress. The patient is intubated MENTAL STATUS: Subjective CRANIAL NERVES: Pupils are equal, round and slightly reactive.There are corneal reflexes and doll's eyes phenomenon. No signs of facial weakness. There are no gagging or coughing reflexes SENSATION: Nonresponsive to pain stimuli. MOTOR: Normal tone in the upper and lower extremity. Normal muscle bulk. No fasciculations. No spontaneous movement. REFLEXES: Deep tendon reflexes are symmetrical. No pathological reflexes. CEREBELLAR/COORDINATION: Deferred GAIT/STATION: deferred. laboratory and microbiology Laboratory Tests 01/14/25 03:06 Test 01/14/25 03:06 Range/Units Serum Glucose 242 H 74-106 mg/dL Problem List Partial complex seizure Grand mal seizure Status epileptics, ? Triggered by UTI Acute respiratory failure Urinary tract infection Chronic multiple strokes ? Rule out acute stroke Obesity Macrocytosis Assessment/Plan Monitoring Support treatment ICU care UDS Vitamin B12, folic acid EEG Echocardiogram MRI head Stabilize vitals/pressor drip Respiratory support/vent management Keppra 1000 mg twice daily Ativan for seizure breakthrough Ativan for seizure breakthrough Aspirin 81 mg daily/300 mg VT Qd Lipitor 40 mg daily IV antibiotics Ceftriaxone Zosyn DVT prophylaxis She was prophylax More recommendation per clinical course This medical document was created using an electronic medical record system with [employer] computerized dictation system. Although this document has been carefully reviewed, there may still be some phonetic and typographical errors. These areas ar Prognosis guarded Dietary Evaluation Review Comments: 1. To support pt on ventilator, offer Vital High Protein @50ml/hr providing 105g protwin, 1200kcal meeting pt's protein needs @89%, energy needs @ 112% 2. To support pt off ventilator, offer Glucerna@45ml/hr providing 65 g Protein, 1296 kcal, meeting pt's protein needs 100%, energy needs@ 88% 3. Advance to PO diet CCHO-60 when medically feasible and pt passes a HELP DESK ANALYST eval. Expected Outcomes/Goals: controlled blood sugar, gradual weight loss Plan discussed with: Other Critical Care Time(min): 35 AYAD BOLDEN MD Jan 14, 2025 10:48
--- NOTE | 2025-01-14 21:51 | DVHEEG2 ---
Neurology EEG Procedural Note Procedural Note EXAM DATE: 01/13/2025 REFERRING DOCTOR: Dr. Bolden TECHNIQUE: Eighteen channels of EEG, 2 channels of EOG, and 1 channel of EKG were recorded using the International 10/20 system. CLINICAL DATA: The patient was referred for an EEG evaluation for the evidence of seizure disorder. MEDICATIONS: See the chart BACKGROUND ACTIVITY: The record showed diffuse low amplitude rhythmic activity in alpha or theta range with intervals of suppressed or relatively suppressed background activity ACTIVATION: Hyperventilation: Not done Photic Stimulation: Not done Sleep: Unresponsiveness IMPRESSION: This is a remarkably abnormal EEG, this EEG seen in severe cerebral dysfunction due to metabolic/hypoxic encephalopathy or medication effects, please correlate clinically. The EKG channel showed a poor signal [place] [address] AYAD BOLDEN MD Jan 14, 2025 21:51
[2025-01-15] VITALS (105 sets, daily range): BP systolic 79–152; BP diastolic 36–72; PULSE 50–92; RESP 12–26; TEMP 97.3–99.5; O2SAT 30–100
[2025-01-15 04:11] LABS: Eosinophils # (auto) 0.2 10 ^3/uL (0-0.8); Hemoglobin 12.5 g/dL (12.2-16.2); Lymphocytes # (auto) 3.1 10 ^3/uL (0.4-5.4); Mean Corpuscular Hemoglobin 35.8 pg (28.0-32.0); Monocytes # (auto) 0.5 10 ^3/uL (0-1.3)
[2025-01-15 04:16] LABS: Basophils # (auto) 0 10 ^3/uL (0-0.2); Basophils % (auto) 0.4 % (0.0-2.0); Eosinophils % (auto) 2.4 % (0.0-7.0); Hematocrit 36.7 % (36.0-46.0); Lymphocytes % (auto) 32.3 % (10.0-50.0); Mean Corpuscular Volume 105.3 fL (80.0-100.0); Monocytes % (auto) 5.7 % (0.0-12.0); Neutrophils # (auto) 5.6 10 ^3/uL (1.6-8.6); Neutrophils % (auto) 59.2 % (37.0-80.0); Nucleated Red Blood Cells % 0.4 %; Platelet Count (auto) 106 10^3/uL (140-450); Red Blood Cells 3.48 10^6/uL (4.0-5.20); Red Cell Distribution Width 15.1 % (11.8-14.3); White Blood Cell 9.5 10^3/uL (4.4-10.8)
[2025-01-15 04:22] LABS: Anion Gap 9 (5-15); Carbon Dioxide 24 mmol/L (20-31); Potassium 3.7 mmol/L (3.5-5.1); Sodium 144 mmol/L (136-145)
[2025-01-15 04:28] LABS: BUN/Creatinine Ratio 11.9 (10.0-20.0)
[2025-01-15 04:52] LABS: Blood Urea Nitrogen 8 mg/dL (9-23); Calcium 8.4 mg/dL (8.7-10.4); Chloride 111 mmol/L (98-107); Glucose 231 mg/dL (74-106)
--- NOTE | 2025-01-15 06:48 | DVH ---
CHEST RADIOGRAPH Indication: INTUBATED Technique: Single frontal view of the chest was obtained COMPARISON: XY CHEST PORTABLE on DOS: 01/14/25, XY CHEST XRAY 1 VIEW on DOS: 01/13/25, XY CHEST PORTABL E on DOS: 01/12/25, CHEST PORTABLE on DOS: 06/10/21, CXRP on DOS: 06/10/21 FINDINGS: Lines and Tubes: Unchanged. Lungs: Improved aeration without evidence of focal consolidation or significant infiltrate. Pleura: No effusion. No pneumothorax. Cardiomediastinal contours: Unremarkable Bones: Unremarkable IMPRESSION: 1. No acute disease. Improved aeration compared with the prior exam. 2. Lines and tubes unchanged.
[2025-01-15 07:40] LABS: Base Excess -1.9 mmol/L (-2.0-3.0)
[2025-01-15] MEDS: NOREPINEPHRINE 8 MG/250ML KIT 250 ML IV SCH (10:00)
[2025-01-15] MEDS: DEXMEDETOMIDINE HCL IN D5W 100 ML IV SCH (10:27)
--- NOTE | 2025-01-15 10:43 | DVHPN2 ---
Progress Note - Dictate Date Seen: Jan 15, 2025 Medical Necessity Reason Pt with a Central, PICC or Fol: Yes The following are medically ne: Central Line, Woods Catheter vital signs Vital Sign Date Time Temp Pulse Resp B/P (MAP) Pulse Ox O2 Delivery O2 Flow Rate FiO2 01/15/25 07:00 99.0 59 18 139/59 (85) 98 210.2 01/15/25 06:00 30 01/15/25 06:00 Mechanical Ventilator+ 01/13/25 22:00 60 Total Intake and Output 01/14/25 01/14/25 01/15/25 15:00 23:00 07:00 Intake Total 1609.70 ml 1249.35 ml 1268.070 ml Output Total 475 ml 150 ml Balance 1609.70 ml 774.35 ml 1118.070 ml medications Current Medications Medications Dose Ordered Sig/Tracy Route Start Time Stop Time Status Last Admin Dose Admin Midazolam HCl 50 ml @ 1 mls/hr Q24H IV 01/12/25 17:15 01/14/25 00:58 5 MLS/HR Fentanyl Citrate 250 ml @ 2.5 mls/hr Q24H IV 01/12/25 18:30 01/15/25 00:02 12.5 MLS/HR Propofol 100 ml @ 2.925 mls/ hr Q24H IV 01/12/25 19:30 01/15/25 06:30 5.85 MLS/HR Levetiracetam 100 ml @ 400 mls/hr BID IV 01/13/25 10:00 01/15/25 09:16 400 MLS/HR Enoxaparin Sodium 40 mg DAILY SC 01/13/25 10:00 01/15/25 09:34 40 MG Pantoprazole Sodium 40 mg DAILY IV 01/13/25 10:00 01/15/25 09:16 40 MG Diagnostic Test (Pha) 1 strip Q6HR 01/13/25 12:00 01/15/25 05:11 1 STRIP Insulin Human Regular Q6HR SC 01/13/25 12:00 01/15/25 05:13 6 UNITS Dextrose 50 ml UD PRN IV 01/13/25 09:00 Piperacillin Sod/ Tazobactam Sod 100 ml @ 25 mls/hr Q8HR IV 01/13/25 16:00 01/15/25 05:11 25 MLS/HR Lorazepam 1 mg Q5MINP PRN IV 01/13/25 10:30 Aspirin 300 mg DAILY [place] 01/14/25 10:00 01/15/25 09:17 300 MG Sodium Chloride 1,000 ml @ 100 mls/hr Q10H IV 01/13/25 12:00 01/15/25 04:00 100 MLS/HR Insulin Glargine 10 units DAILY@1000 SC 01/14/25 10:00 01/15/25 09:31 10 UNITS Enteral Nutritional Formula 1,000 ml 30ML/HR GT 01/14/25 08:45 01/14/25 08:44 1,000 ML Norepinephrine Bitartrate 250 ml @ 3.75 mls/hr Q24H IV 01/15/25 10:00 laboratory and microbiology Laboratory Tests 01/15/25 03:34 Test 01/15/25 03:34 Range/Units Serum Glucose 231 H 74-106 mg/dL Assessment/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 To support pt on ventilator, offer Vital High Protein @50ml/hr providing 105g protwin, 1200kcal meeting pt's protein needs @89%, energy needs @ 112% 2. To support pt off ventilator, offer Glucerna@45ml/hr providing 65 g Protein, 1296 kcal, meeting pt's protein needs 100%, energy needs@ 88% 3. Advance to PO diet CCHO-60 when medically feasible and pt passes a BOILER ASSISTANT OPERATOR eval. Expected Outcomes/Goals: controlled blood sugar, gradual weight loss Plan discussed with: Other (rn) CARMELLA MCNAMARA MD Jan 15, 2025 10:43
--- NOTE | 2025-01-15 13:50 | DVHPN2 ---
Subjective Intubated and sedated Reviewed: Care Plan, H&P, Labs, Medications, Previous Orders, Radiology, Other (Consultations) Changes from previous H/P or p: No Changes Objective Vitals Vital Signs Date Time Temp Pulse Resp B/P (MAP) Pulse Ox O2 Delivery O2 Flow Rate FiO2 01/15/25 12:00 62 01/15/25 12:00 18 100 Mechanical Ventilator+ 30 30 01/15/25 11:48 127/59 (81) 01/15/25 07:00 99.0 210.2 01/13/25 22:00 60 Intake/Output Intake and Output 01/15/25 07:00 Intake Total 4262.970 ml Output Total 625 ml Balance 3637.970 ml Intake Oral 100 ml IV Total 3878.970 ml Tube Feeding 284 ml Output Urine Total 625 ml Stool Total 0 ml General Appearance: moderate distress, Other (Intubated and sedated) HEENT: Atraumatic Lungs: Other (Mechanical ventilation sounds) Cardiovascular: Normal S1, Normal S2, Other (Tachycardia) Abdomen: Normal bowel sounds, Soft Genitourinary: Other (Woods's) Neuro: Other (Intubated and sedated) Psych/Mental Status: Other (Intubated and sedated) Medications Current Medications Medications Dose Ordered Sig/Tracy Route Start Time Stop Time Status Last Admin Dose Admin Midazolam HCl 50 ml @ 1 mls/hr Q24H IV 01/12/25 17:15 01/14/25 00:58 5 MLS/HR Fentanyl Citrate 250 ml @ 2.5 mls/hr Q24H IV 01/12/25 18:30 01/15/25 00:02 12.5 MLS/HR Propofol 100 ml @ 2.925 mls/ hr Q24H IV 01/12/25 19:30 01/15/25 06:30 5.85 MLS/HR Levetiracetam 100 ml @ 400 mls/hr BID IV 01/13/25 10:00 01/15/25 09:16 400 MLS/HR Enoxaparin Sodium 40 mg DAILY SC 01/13/25 10:00 01/15/25 09:34 40 MG Pantoprazole Sodium 40 mg DAILY IV 01/13/25 10:00 01/15/25 09:16 40 MG Diagnostic Test (Pha) 1 strip Q6HR 01/13/25 12:00 01/15/25 13:03 1 STRIP Insulin Human Regular Q6HR SC 01/13/25 12:00 01/15/25 13:05 3 UNITS Dextrose 50 ml UD PRN IV 01/13/25 09:00 Piperacillin Sod/ Tazobactam Sod 100 ml @ 25 mls/hr Q8HR IV 01/13/25 16:00 01/15/25 05:11 25 MLS/HR Lorazepam 1 mg Q5MINP PRN IV 01/13/25 10:30 Aspirin 300 mg DAILY [place] 01/14/25 10:00 01/15/25 09:17 300 MG Sodium Chloride 1,000 ml @ 100 mls/hr Q10H IV 01/13/25 12:00 01/15/25 04:00 100 MLS/HR Insulin Glargine 10 units DAILY@1000 SC 01/14/25 10:00 01/15/25 09:31 10 UNITS Enteral Nutritional Formula 1,000 ml 30ML/HR GT 01/14/25 08:45 01/14/25 08:44 1,000 ML Norepinephrine Bitartrate 250 ml @ 3.75 mls/hr Q24H IV 01/15/25 10:00 01/15/25 10:00 7.5 MLS/HR Laboratory Results Laboratory Tests 01/15/25 03:34 Chemistry Test 01/15/25 03:34 Calcium Level 8.4 mg/dL (8.7-10.4) L Urinalysis Test 01/12/25 17:19 Urine Color Light-yellow (Yellow) Urine Clarity Turbid (Clear) H Urine pH 6.0 (5.0-9.0) Urine Specific Post 1.034 (1.001-1.035) Urine Protein 1+ (Negative) H Urine Ketones Negative (Negative) Urine Blood 1+ /uL (Negative) H Urine Nitrite Negative (Negative) Urine Bilirubin Negative (Negative) Urine Urobilinogen Normal mg/dL (Negative) Urine Leukocyte Esterase 3+ /uL (Negative) Urine RBC 17 /hpf (0 - 4) Urine Microscopic WBC 20 /HPF (0-5) H Urine Squamous Epithelial Cells Few /hpf (<5) Urine Bacteria Few /hpf (None Seen) H Urine Glucose 2+ mg/dL (Normal) H Blood Gas Results Test 01/15/25 07:32 Arterial Blood pH 7.420 (7.350-7.450) FiO2 % 30.0 Microbiology Microbiology Date/Time Source Procedure Growth Status 01/13/25 23:23 Nose MRSA Screen - Final Complete 01/13/25 10:05 Urine - [place] Urine Culture - Preliminary Resulted 01/13/25 09:42 Blood Blood Culture - Preliminary NO GROWTH AFTER 48 HOURS OF INCUBATION. Resulted 01/12/25 17:19 Sputum Expectorated Sputum Gram Stain - Final Resulted 01/12/25 17:19 Sputum Expectorated Sputum Respiratory Culture - Preliminary Resulted Labs and/or images reviewed: Labs reviewed by me, Image(s) reviewed by me Assessment/Plan Assessment/Plan Covering: Acute metabolic toxic encephalopathy in the setting of status epilepticus Acute hypoxic respiratory failure due to suspected aspiration pneumonia Septic shock due to suspected complicated UTI and suspected aspiration pneumonia Leukocytosis, thrombocytopenia and lactic acidosis due to septic shock YI in the setting of septic shock; most likely vasomotor nephropathy Macrocytosis with developing anemia Partial complex seizure Grand mal seizure Status epileptics, suspected triggered by suspected complicated UTI Chronic multiple strokes Uncontrolled diabetes mellitus type 2 with hyperglycemia Morbid obesity Reviewed lab work including ABGs Reviewed imaging studies including chest x-rays, EEG, and brain MRI Reviewed available cultures Continue mechanical ventilation for oxygen therapy Continue sedation as indicated Continue IV antibiotics Continue IV pressors Continue insulin therapy with hypoglycemia protocol Avoid nephrotoxic agents Pulmonology and Neurology are following Continue close monitoring Goals of care discussed with the patient's son for 20 minutes; full code Critical care time of 110 minutes Late Entry. This medical document was created using an electronic medical record system with computerized dictation system. Although this document has been carefully reviewed, there might still be some phonetic and typographical errors. These areas are purely typographical due to imperfections of the software programs, and do not reflect any compromise in the patient's medical care. Plan discussed with: Son, Other (Nurse) Date of Service: Jan 15, 2025 Billing Provider: MAGNOLIA TONG MD Common Visit Codes: 77619-OUIWNQDR CARE 30-74 MIN (110 minutes), 05492-[id number] CARE-EACH +30MIN Secondary Visit Codes: 88852-[id number] CARE PLAN 30 MINUTES (20 minutes) MAGNOLIA TONG MD Jan 15, 2025 13:50
[2025-01-16] VITALS (106 sets, daily range): BP systolic 91–172; BP diastolic 39–78; PULSE 47–73; RESP 12–19; TEMP 56.8–99.1; O2SAT 30–100
[2025-01-16 00:29] LABS: White Blood Cell 7.3 10^3/uL (4.4-10.8)
[2025-01-16 00:30] LABS: Basophils # (auto) 0.1 10 ^3/uL (0-0.2); Basophils % (auto) 0.8 % (0.0-2.0); Eosinophils # (auto) 0.2 10 ^3/uL (0-0.8); Eosinophils % (auto) 3.3 % (0.0-7.0); Hematocrit 37.1 % (36.0-46.0); Hemoglobin 12.7 g/dL (12.2-16.2); Lymphocytes % (auto) 41.5 % (10.0-50.0); Mean Corpuscular Hemoglobin 36.3 pg (28.0-32.0); Mean Corpuscular Hgb Conc. 34.4 g/dL (32.0-36.0); Mean Corpuscular Volume 105.5 fL (80.0-100.0); Monocytes # (auto) 0.4 10 ^3/uL (0-1.3); Monocytes % (auto) 5.8 % (0.0-12.0); Neutrophils # (auto) 3.5 10 ^3/uL (1.6-8.6); Neutrophils % (auto) 48.6 % (37.0-80.0); Nucleated Red Blood Cells % 0.1 %; Platelet Count (auto) 113 10^3/uL (140-450); Red Blood Cells 3.51 10^6/uL (4.0-5.20); Red Cell Distribution Width 15.1 % (11.8-14.3)
[2025-01-16 00:44] LABS: Alanine Aminotransferase 19 U/L (7-40); Alkaline Phosphatase 58 U/L (46-116); Anion Gap 9 (5-15); BUN/Creatinine Ratio 15.9 (10.0-20.0); Blood Urea Nitrogen 10 mg/dL (9-23); Carbon Dioxide 23 mmol/L (20-31)
[2025-01-16 00:45] LABS: Aspartate Aminotransferase 33 U/L (13-40); Bilirubin, Total 0.9 mg/dL (0.2-1.0)
[2025-01-16 00:47] LABS: Albumin 3.2 g/dL (3.2-4.8); Calcium 8.3 mg/dL (8.7-10.4); Chloride 113 mmol/L (98-107); Glucose 177 mg/dL (74-106); Magnesium 1.5 mg/dL (1.6-2.6); Potassium 3.3 mmol/L (3.5-5.1); Sodium 145 mmol/L (136-145); Total Protein 5.6 g/dL (5.7-8.2)
[2025-01-16] MEDS ORDERED: POTASSIUM CHL 20MEQ/100ML 100 ML IV ONE (01:15)
[2025-01-16] MEDS: MAGNESIUM SULFATE 1GM/100ML 100 ML IV ONE (01:23)
[2025-01-16] MEDS: POTASSIUM CHL 20MEQ/50ML 50 ML IV ONE (01:27)
--- NOTE | 2025-01-16 06:24 | DVH ---
CHEST RADIOGRAPH Indication: Intubated. Thank You! Technique: Single frontal view of the chest was obtained COMPARISON: XY CHEST PORTABLE on DOS: 01/15/25, XY CHEST PORTABLE on DOS: 01/14/25, XY CHEST XRAY 1 VIE W on DOS: 01/13/25, XY CHEST PORTABLE on DOS: 01/12/25, CHEST PORTABLE on DOS: 06/10/21 FINDINGS: Lines and Tubes: Apparent advancement of the endotracheal tube with tip now projecting approximately 1.4 cm above the level of the jeanie. Remaining lines and tubes are unchanged. Lungs: Slight interval increase in opacification of the left hemithorax which may represent pulmonary vascular congestion. Pleura: No effusion. No pneumothorax. Cardiomediastinal contours: Unremarkable Bones: Unremarkable IMPRESSION: 1. Slight interval increase in left hemithoracic opacification, suggestive of pulmonary vascular nehemiah estion. 2. Slight interval advancement of the endotracheal tube as noted above. 3. Remaining lines and tubes unchanged.
[2025-01-16 07:17] LABS: Base Excess -2.2 mmol/L (-2.0-3.0)
--- NOTE | 2025-01-16 09:27 | DVHPN2 ---
Progress Note - Dictate Date Seen: Jan 16, 2025 Medical Necessity Reason Pt with a Central, PICC or Fol: Yes The following are medically ne: Central Line, Woods Catheter vital signs Vital Sign Date Time Temp Pulse Resp B/P (MAP) Pulse Ox O2 Delivery O2 Flow Rate FiO2 01/16/25 09:00 100/51 01/16/25 08:00 55 01/16/25 08:00 18 100 Mechanical Ventilator+ 30 30 01/16/25 06:46 93.2 199.8 Total Intake and Output 01/15/25 01/15/25 01/16/25 15:00 23:00 07:00 Intake Total 1051.141 ml 1231.930 ml 420.205 ml Output Total 275 ml 350 ml Balance 1051.141 ml 956.930 ml 70.205 ml medications Current Medications Medications Dose Ordered Sig/Tracy Route Start Time Stop Time Status Last Admin Dose Admin Midazolam HCl 50 ml @ 1 mls/hr Q24H IV 01/12/25 17:15 01/15/25 16:41 4 MLS/HR Fentanyl Citrate 250 ml @ 2.5 mls/hr Q24H IV 01/12/25 18:30 01/16/25 01:41 10 MLS/HR Propofol 100 ml @ 2.925 mls/ hr Q24H IV 01/12/25 19:30 01/16/25 06:58 11.7 MLS/HR Levetiracetam 100 ml @ 400 mls/hr BID IV 01/13/25 10:00 01/15/25 23:13 400 MLS/HR Enoxaparin Sodium 40 mg DAILY SC 01/13/25 10:00 01/15/25 09:34 40 MG Pantoprazole Sodium 40 mg DAILY IV 01/13/25 10:00 01/15/25 09:16 40 MG Diagnostic Test (Pha) 1 strip Q6HR 01/13/25 12:00 01/16/25 06:00 1 STRIP Insulin Human Regular Q6HR SC 01/13/25 12:00 01/16/25 06:59 3 UNITS Dextrose 50 ml UD PRN IV 01/13/25 09:00 Piperacillin Sod/ Tazobactam Sod 100 ml @ 25 mls/hr Q8HR IV 01/13/25 16:00 01/16/25 06:00 25 MLS/HR Lorazepam 1 mg Q5MINP PRN IV 01/13/25 10:30 Aspirin 300 mg DAILY MA 01/14/25 10:00 01/15/25 09:17 300 MG Sodium Chloride 1,000 ml @ 100 mls/hr Q10H IV 01/13/25 12:00 01/16/25 07:50 100 MLS/HR Insulin Glargine 10 units DAILY@1000 SC 01/14/25 10:00 01/15/25 09:31 10 UNITS Enteral Nutritional Formula 1,000 ml 30ML/HR GT 01/14/25 08:45 01/14/25 08:44 1,000 ML Norepinephrine Bitartrate 250 ml @ 3.75 mls/hr Q24H IV 01/15/25 10:00 01/15/25 10:00 7.5 MLS/HR laboratory and microbiology Laboratory Tests 01/16/25 00:05 Test 01/16/25 00:05 Range/Units Serum Glucose 177 H 74-106 mg/dL Assessment/Plan 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 To support pt on ventilator, offer Vital High Protein @50ml/hr providing 105g protwin, 1200kcal meeting pt's protein needs @89%, energy needs @ 112% 2. To support pt off ventilator, offer Glucerna@45ml/hr providing 65 g Protein, 1296 kcal, meeting pt's protein needs 100%, energy needs@ 88% 3. Advance to PO diet CCHO-60 when medically feasible and pt passes a ROOFING TILE SORTER eval. Expected Outcomes/Goals: controlled blood sugar, gradual weight loss Plan discussed with: Other (rn) CARMELLA MCNAMARA MD Jan 16, 2025 09:27
--- NOTE | 2025-01-16 09:30 | DVHNC2 ---
Procedure Note Procedure: bronchoscopy and bronchial washings Indication: secretions Informed consent discussed w/: Yes Emergent procedure Patient or: No Procedure Summary: pt placed on 100% Fi02 vented sedation per ICU flexible scope passed thru ETT tracheo-bronchial tree examined mucosa inflamed, edematous and easily bruisable moderate amount of blood-tinged secretions seen in lower lobes bilaterally suctioned thoroughly with 20 cc ns. no endobronchial lesions sample obtained for gram stain and cx at the end scope removed pt tolerated procedure well CARMELLA MCNAMARA MD Jan 16, 2025 09:30
[2025-01-16 11:13] LABS: Basophils # (auto) 0 10 ^3/uL (0-0.2); Basophils % (auto) 0.7 % (0.0-2.0); Eosinophils # (auto) 0.2 10 ^3/uL (0-0.8); Eosinophils % (auto) 3.2 % (0.0-7.0); Hematocrit 34.1 % (36.0-46.0); Hemoglobin 11.6 g/dL (12.2-16.2); Lymphocytes % (auto) 33.2 % (10.0-50.0); Mean Corpuscular Hemoglobin 36.2 pg (28.0-32.0); Mean Corpuscular Hgb Conc. 33.9 g/dL (32.0-36.0); Mean Corpuscular Volume 106.6 fL (80.0-100.0); Monocytes # (auto) 0.4 10 ^3/uL (0-1.3); Neutrophils # (auto) 3.4 10 ^3/uL (1.6-8.6); Neutrophils % (auto) 56.9 % (37.0-80.0); Nucleated Red Blood Cells % 0.1 %; Platelet Count (auto) 102 10^3/uL (140-450); Red Cell Distribution Width 15.1 % (11.8-14.3); White Blood Cell 5.9 10^3/uL (4.4-10.8)
[2025-01-16 11:14] LABS: Potassium 3.5 mmol/L (3.5-5.1); Sodium 143 mmol/L (136-145)
[2025-01-16 11:15] LABS: Anion Gap 8 (5-15); Carbon Dioxide 21 mmol/L (20-31)
[2025-01-16 11:16] LABS: Calcium 8.3 mg/dL (8.7-10.4); Chloride 114 mmol/L (98-107)
[2025-01-16 11:21] LABS: BUN/Creatinine Ratio 15.9 (10.0-20.0); Blood Urea Nitrogen 10 mg/dL (9-23)
[2025-01-16 11:22] LABS: Glucose 188 mg/dL (74-106)
--- NOTE | 2025-01-16 20:56 | DVHPN2 ---
Progress Note - Dictate Date Seen: Jan 16, 2025 Medical Necessity Reason Pt with a Central, PICC or Fol: Yes The following are medically ne: Central Line, [place] Catheter Subjective Ms. Tamez is a 59 years old right-handed female with a history of hypertension, diabetes, dyslipidemia, coronary artery disease, heart attack, chronic stroke, seizure disorder, the patient came to the hospital because of possible stroke. I saw her on 02/10/2020 for breakthrough seizure I have seen and examined the patient, I have discussed with her nurse, she was waking up, but she was not responsive to my verbal commands She was agitated earlier Urinalysis, 01/12/2025: WBC: 20, urine leukocyte esterase: 3+ UDS, 01/12/2025: Negative CBC, 01/12/2025: Metabolic acidosis WBC/HB/PLT/MCV, 01/13/2025: 15.2/15.2/164/104.4 CMP, 01/13/2025: Unremarkable Lactic acid, 01/12/2025:11.1, 3.6 01/13/2025:2.4, 2.4 Vitamin B12, 01/13/2025: 567 Folic acid, 01/13/2025: 5.41 EEG, 01/14/2025: Remarkably abnormal Echocardiogram, 01/13/2025: LVEF normal 50-55%, RV function normal AV not well visualized Carotid Doppler, 01/12/2025: No large vessel occlusion or high-grade stenosis in the arteries of the head and neck. No aneurysm is identified. CT head, 02/09/2020: 1. No intracranial hemorrhage. 2. Encephalomalacia in the right posterior parietal/temporal lobe and in the left occipital lobe laterally consistent with old infarcts. 3. Old lacunar infarcts in the left basal ganglia and left anterior limb of internal capsule. 4. Mild atrophy. 5. Atherosclerosis. 6. Otherwise unremarkable noncontrast CT scan of the brain CT head, 01/12/2025: 1. No large acute territorial ischemia or intracranial hemorrhage. 2. 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 vital signs Vital Sign Date Time Temp Pulse Resp B/P (MAP) Pulse Ox O2 Delivery O2 Flow Rate FiO2 01/16/25 20:24 61 18 96/44 (61) 100 30 01/16/25 18:30 98.2 208.8 01/16/25 18:00 Mechanical Ventilator+ Total Intake and Output 01/15/25 01/15/25 01/16/25 14:59 22:59 06:59 Intake Total 1049.491 ml 1350.675 ml 310.160 ml Output Total 275 ml 350 ml Balance 1049.491 ml 1075.675 ml -39.840 ml medications Current Medications Medications Dose Ordered Sig/Tracy Route Start Time Stop Time Status Last Admin Dose Admin Midazolam HCl 50 ml @ 1 mls/hr Q24H IV 01/12/25 17:15 01/15/25 16:41 4 MLS/HR Fentanyl Citrate 250 ml @ 2.5 mls/hr Q24H IV 01/12/25 18:30 01/16/25 01:41 10 MLS/HR Propofol 100 ml @ 2.925 mls/ hr Q24H IV 01/12/25 19:30 01/16/25 13:49 11.7 MLS/HR Levetiracetam 100 ml @ 400 mls/hr BID IV 01/13/25 10:00 01/16/25 09:58 400 MLS/HR Enoxaparin Sodium 40 mg DAILY SC 01/13/25 10:00 01/15/25 09:34 40 MG Pantoprazole Sodium 40 mg DAILY IV 01/13/25 10:00 01/16/25 09:58 40 MG Diagnostic Test (Pha) 1 strip Q6HR 01/13/25 12:00 01/16/25 17:25 1 STRIP Insulin Human Regular Q6HR SC 01/13/25 12:00 01/16/25 17:26 2 UNITS Dextrose 50 ml UD PRN IV 01/13/25 09:00 Piperacillin Sod/ Tazobactam Sod 100 ml @ 25 mls/hr Q8HR IV 01/13/25 16:00 01/16/25 13:49 25 MLS/HR Lorazepam 1 mg Q5MINP PRN IV 01/13/25 10:30 Aspirin 300 mg DAILY SC 01/14/25 10:00 01/15/25 09:17 300 MG Sodium Chloride 1,000 ml @ 100 mls/hr Q10H IV 01/13/25 12:00 01/16/25 17:30 100 MLS/HR Insulin Glargine 10 units DAILY@1000 SC 01/14/25 10:00 01/16/25 09:58 10 UNITS Enteral Nutritional Formula 1,000 ml 30ML/HR GT 01/14/25 08:45 01/16/25 18:41 1,000 ML Norepinephrine Bitartrate 250 ml @ 3.75 mls/hr Q24H IV 01/15/25 10:00 01/16/25 09:44 3.75 MLS/HR objective The patient is well-nourished and well-developed with no distress. The patient is intubated MENTAL STATUS: Subjective CRANIAL NERVES: Pupils are equal, round and slightly reactive.There are corneal reflexes and doll's eyes phenomenon. No signs of facial weakness. There are gagging or coughing reflexes suctioning and oral care SENSATION: Responsive to pain stimuli. MOTOR: Normal tone in the upper and lower extremity. Normal muscle bulk. No fasciculations. No spontaneous movement. REFLEXES: Deep tendon reflexes are symmetrical. No pathological reflexes. CEREBELLAR/COORDINATION: Deferred GAIT/STATION: deferred. laboratory and microbiology Laboratory Tests 01/16/25 10:09 Test 01/16/25 10:09 Range/Units Serum Glucose 188 H 74-106 mg/dL Problem List Partial complex seizure Grand mal seizure Status epileptics, ? Triggered by UTI Acute respiratory failure Urinary tract infection Chronic multiple strokes ? Rule out acute stroke Obesity Macrocytosis Assessment/Plan Monitoring Support treatment ICU care MRI head Stabilize vitals/pressor drip Respiratory support/vent management Keppra 1000 mg twice daily Ativan for seizure breakthrough Ativan for seizure breakthrough Aspirin 81 mg daily/300 mg [place] Qd Lipitor 40 mg daily IV antibiotics Ceftriaxone Zosyn DVT prophylaxis She was prophylax More recommendation per clinical course This medical document was created using an electronic medical record system with [employer] dictation system. Although this document has been carefully reviewed, there may still be some phonetic and typographical errors. These areas ar Prognosis guarded Dietary Evaluation Review Comments: 1. To support pt on ventilator, offer Vital High Protein @50ml/hr providing 105g protwin, 1200kcal meeting pt's protein needs @89%, energy needs @ 112% 2. To support pt off ventilator, offer Glucerna@45ml/hr providing 65 g Protein, 1296 kcal, meeting pt's protein needs 100%, energy needs@ 88% 3. Advance to PO diet CCHO-60 when medically feasible and pt passes a PHYSIOGNOMIST eval. Expected Outcomes/Goals: controlled blood sugar, gradual weight loss Plan discussed with: Other Critical Care Time(min): 35 AYAD BOLDEN MD Jan 16, 2025 20:56
--- NOTE | 2025-01-16 21:40 | DVHPN2 ---
Subjective Intubated and sedated Reviewed: Care Plan, H&P, Labs, Medications, Previous Orders, Radiology, Other (Consultations) Changes from previous H/P or p: No Changes Objective Vitals Vital Signs Date Time Temp Pulse Resp B/P (MAP) Pulse Ox O2 Delivery O2 Flow Rate FiO2 01/16/25 20:24 61 18 96/44 (61) 100 30 01/16/25 18:30 98.2 208.8 01/16/25 18:00 Mechanical Ventilator+ Intake/Output Intake and Output 01/16/25 07:00 Intake Total 2703.276 ml Output Total 625 ml Balance 2078.276 ml Intake Oral 55 ml IV Total 2423.276 ml Tube Feeding 225 ml Output Urine Total 625 ml Stool Total 0 ml General Appearance: moderate distress, Other (Intubated and sedated) HEENT: Atraumatic Lungs: Other (Mechanical ventilation sounds) Cardiovascular: Normal S1, Normal S2, Other (Tachycardia) Abdomen: Normal bowel sounds, Soft Genitourinary: Other (Wood[place]'s) Neuro: Other (Intubated and sedated) Psych/Mental Status: Other (Intubated and sedated) Medications Current Medications Medications Dose Ordered Sig/Tracy Route Start Time Stop Time Status Last Admin Dose Admin Midazolam HCl 50 ml @ 1 mls/hr Q24H IV 01/12/25 17:15 01/15/25 16:41 4 MLS/HR Fentanyl Citrate 250 ml @ 2.5 mls/hr Q24H IV 01/12/25 18:30 01/16/25 01:41 10 MLS/HR Propofol 100 ml @ 2.925 mls/ hr Q24H IV 01/12/25 19:30 01/16/25 13:49 11.7 MLS/HR Levetiracetam 100 ml @ 400 mls/hr BID IV 01/13/25 10:00 01/16/25 09:58 400 MLS/HR Enoxaparin Sodium 40 mg DAILY SC 01/13/25 10:00 01/15/25 09:34 40 MG Pantoprazole Sodium 40 mg DAILY IV 01/13/25 10:00 01/16/25 09:58 40 MG Diagnostic Test (Pha) 1 strip Q6HR 01/13/25 12:00 01/16/25 17:25 1 STRIP Insulin Human Regular Q6HR SC 01/13/25 12:00 01/16/25 17:26 2 UNITS Dextrose 50 ml UD PRN IV 01/13/25 09:00 Piperacillin Sod/ Tazobactam Sod 100 ml @ 25 mls/hr Q8HR IV 01/13/25 16:00 01/16/25 13:49 25 MLS/HR Lorazepam 1 mg Q5MINP PRN IV 01/13/25 10:30 Aspirin 300 mg DAILY [place] 01/14/25 10:00 01/15/25 09:17 300 MG Sodium Chloride 1,000 ml @ 100 mls/hr Q10H IV 01/13/25 12:00 01/16/25 17:30 100 MLS/HR Insulin Glargine 10 units DAILY@1000 SC 01/14/25 10:00 01/16/25 09:58 10 UNITS Enteral Nutritional Formula 1,000 ml 30ML/HR GT 01/14/25 08:45 01/16/25 18:41 1,000 ML Norepinephrine Bitartrate 250 ml @ 3.75 mls/hr Q24H IV 01/15/25 10:00 01/16/25 09:44 3.75 MLS/HR Laboratory Results Laboratory Tests 01/16/25 10:09 Chemistry Test 01/16/25 00:05 01/16/25 10:09 Albumin 3.2 g/dL (3.2-4.8) Calcium Level 8.3 mg/dL (8.7-10.4) L 8.3 mg/dL (8.7-10.4) L Magnesium Level 1.5 mg/dL (1.6-2.6) L Total Protein 5.6 g/dL (5.7-8.2) L LFT Test 01/16/25 00:05 Alanine Aminotransferase (ALT) 19 U/L (7-40) Alkaline Phosphatase 58 U/L (46-116) Aspartate Amino Transferase (AST) 33 U/L (13-40) Total Bilirubin 0.9 mg/dL (0.2-1.0) Urinalysis Test 01/12/25 17:19 Urine Color Light-yellow (Yellow) Urine Clarity Turbid (Clear) H Urine pH 6.0 (5.0-9.0) Urine Specific [place] 1.034 (1.001-1.035) Urine Protein 1+ (Negative) H Urine Ketones Negative (Negative) Urine Blood 1+ /uL (Negative) H Urine Nitrite Negative (Negative) Urine Bilirubin Negative (Negative) Urine Urobilinogen Normal mg/dL (Negative) Urine Leukocyte Esterase 3+ /uL (Negative) Urine RBC 17 /hpf (0 - 4) Urine Microscopic WBC 20 /HPF (0-5) H Urine Squamous Epithelial Cells Few /hpf (<5) Urine Bacteria Few /hpf (None Seen) H Urine Glucose 2+ mg/dL (Normal) H Blood Gas Results Test 01/16/25 06:07 Arterial Blood pH 7.452 (7.350-7.450) FiO2 % 30.0 Microbiology Microbiology Date/Time Source Procedure Growth Status 01/13/25 23:23 Nose MRSA Screen - Final Complete 01/13/25 10:05 Urine - [place] Urine Culture - Final Complete 01/13/25 09:42 Blood Blood Culture - Preliminary NO GROWTH AFTER 72 HOURS OF INCUBATION. Resulted 01/12/25 17:19 Sputum Expectorated Sputum Gram Stain - Final Complete 01/12/25 17:19 Sputum Expectorated Sputum Respiratory Culture - Final Complete Labs and/or images reviewed: Labs reviewed by me, Image(s) reviewed by me Assessment/Plan Assessment/Plan Covering: Acute metabolic toxic encephalopathy in the setting of status epilepticus Acute hypoxic respiratory failure due to suspected aspiration pneumonia Septic shock due to suspected complicated UTI and suspected aspiration pneumonia Leukocytosis, thrombocytopenia and lactic acidosis due to septic shock YI in the setting of septic shock; most likely vasomotor nephropathy Macrocytosis with developing anemia Partial complex seizure Grand mal seizure Status epileptics, suspected triggered by suspected complicated UTI Chronic multiple strokes Uncontrolled diabetes mellitus type 2 with hyperglycemia Morbid obesity Reviewed lab work including ABGs Reviewed imaging studies including chest x-rays, EEG, and CT angiogram head and neck Reviewed available cultures Continue mechanical ventilation for oxygen therapy Continue sedation as indicated Continue IV antibiotics Continue IV pressors Continue insulin therapy with hypoglycemia protocol Avoid nephrotoxic agents Pulmonology and Neurology are following Continue close monitoring Critical care time of 55 minutes Late Entry. This medical document was created using an electronic medical record system with computerized dictation system. Although this document has been carefully reviewed, there might still be some phonetic and typographical errors. These areas are purely typographical due to imperfections of the software programs, and do not reflect any compromise in the patient's medical care. Plan discussed with: Other (Nurse) My Orders Orders - MAGNOLIA TONG MD Procedure Category Date Status Time Code Status CODE 01/16/25 Transmitted 21:27 Complete Blood Count LAB 01/17/25 Verified 04:00 Comprehensive LAB 01/17/25 Verified Metabolic Panel 04:00 Chest Xray 1 View XY 01/17/25 Logged 04:00 Abg W/ Co-Ox RT 01/17/25 Logged 06:00 Date of Service: Jan 16, 2025 Billing Provider: MAGNOLIA TONG MD Common Visit Codes: 46812-[id number] CARE 30-74 MIN (55 minutes) MAGNOLIA TONG MD Jan 16, 2025 21:40
[2025-01-16] MEDS ORDERED: LORazepam 2MG/ML-1ML VIAL IV PRN (23:00)
[2025-01-17] VITALS (95 sets, daily range): BP systolic 84–174; BP diastolic 42–94; PULSE 46–86; RESP 10–36; TEMP 95.2–98.8; O2SAT 30–100
--- NOTE | 2025-01-17 03:47 | DVH ---
CHEST RADIOGRAPH Indication: Intubated. Technique: Single frontal view of the chest was obtained COMPARISON: XY CHEST XRAY 1 VIEW on DOS: 01/16/25, XY CHEST PORTABLE on DOS: 01/15/25, XY CHEST PORTABL E on DOS: 01/14/25, XY CHEST XRAY 1 VIEW on DOS: 01/13/25, XY CHEST PORTABLE on DOS: 01/12/25 FINDINGS: Lines and Tubes: Unchanged. Lungs: Clear Pleura: No effusion. No pneumothorax. Cardiomediastinal contours: Unremarkable Bones: Unremarkable IMPRESSION: 1. No acute disease. 2. Lines and tubes unchanged.
[2025-01-17 03:52] LABS: Eosinophils # (auto) 0.2 10 ^3/uL (0-0.8); Mean Corpuscular Volume 104.5 fL (80.0-100.0); Monocytes # (auto) 0.4 10 ^3/uL (0-1.3); White Blood Cell 5.9 10^3/uL (4.4-10.8)
[2025-01-17 03:56] LABS: Basophils # (auto) 0 10 ^3/uL (0-0.2); Basophils % (auto) 0.8 % (0.0-2.0); Eosinophils % (auto) 2.8 % (0.0-7.0); Hematocrit 37.1 % (36.0-46.0); Hemoglobin 12.7 g/dL (12.2-16.2); Lymphocytes # (auto) 2.4 10 ^3/uL (0.4-5.4); Lymphocytes % (auto) 40.3 % (10.0-50.0); Mean Corpuscular Hemoglobin 35.9 pg (28.0-32.0); Mean Corpuscular Hgb Conc. 34.3 g/dL (32.0-36.0); Monocytes % (auto) 7.2 % (0.0-12.0); Neutrophils # (auto) 2.9 10 ^3/uL (1.6-8.6); Neutrophils % (auto) 48.9 % (37.0-80.0); Nucleated Red Blood Cells % 0.1 %; Platelet Count (auto) 109 10^3/uL (140-450); Red Blood Cells 3.55 10^6/uL (4.0-5.20); Red Cell Distribution Width 14.8 % (11.8-14.3)
[2025-01-17 04:18] LABS: Alanine Aminotransferase 20 U/L (7-40); Alkaline Phosphatase 56 U/L (46-116); Anion Gap 9 (5-15); Aspartate Aminotransferase 36 U/L (13-40); BUN/Creatinine Ratio 18.3 (10.0-20.0); Bilirubin, Total 0.8 mg/dL (0.2-1.0); Blood Urea Nitrogen 11 mg/dL (9-23); Carbon Dioxide 21 mmol/L (20-31); Sodium 144 mmol/L (136-145)
[2025-01-17 04:22] LABS: Calcium 8.4 mg/dL (8.7-10.4); Chloride 114 mmol/L (98-107); Glucose 134 mg/dL (74-106); Potassium 3.3 mmol/L (3.5-5.1); Total Protein 5.4 g/dL (5.7-8.2)
[2025-01-17] MEDS: POTASSIUM CHL 20MEQ/50ML 50 ML IV ONE (05:46)
[2025-01-17 07:18] LABS: Base Excess -4.4 mmol/L (-2.0-3.0)
--- NOTE | 2025-01-17 10:50 | DVHPN2 ---
Progress Note - Dictate Date Seen: Jan 17, 2025 Medical Necessity Reason Pt with a Central, PICC or Fol: Yes The following are medically ne: Central Line, [place] Catheter Subjective Ms. Tamez is a 59 years old right-handed female with a history of hypertension, diabetes, dyslipidemia, coronary artery disease, heart attack, chronic stroke, seizure disorder, the patient came to the hospital because of possible stroke. I saw her on 02/10/2020 for breakthrough seizure I have seen and examined the patient, I have discussed with her nurse, eyes are closed, but is respond to light touch She was agitated earlier I have talked to MRI center, she was not a candidate for MRI scan Fentanyl 75 mcgm/hour, propofol 30 mcg/min Urinalysis, 01/12/2025: WBC: 20, urine leukocyte esterase: 3+ UDS, 01/12/2025: Negative CBC, 01/12/2025: Metabolic acidosis WBC/HB/PLT/MCV, 01/13/2025: 15.2/15.2/164/104.4 CMP, 01/13/2025: Unremarkable Lactic acid, 01/12/2025:11.1, 3.6 01/13/2025:2.4, 2.4 Vitamin B12, 01/13/2025: 567 Folic acid, 01/13/2025: 5.41 EEG, 01/14/2025: Remarkably abnormal Echocardiogram, 01/13/2025: LVEF normal 50-55%, RV function normal AV not well visualized Carotid Doppler, 01/12/2025: No large vessel occlusion or high-grade stenosis in the arteries of the head and neck. No aneurysm is identified. CT head, 02/09/2020: 1. No intracranial hemorrhage. 2. Encephalomalacia in the right posterior parietal/temporal lobe and in the left occipital lobe laterally consistent with old infarcts. 3. Old lacunar infarcts in the left basal ganglia and left anterior limb of internal capsule. 4. Mild atrophy. 5. Atherosclerosis. 6. Otherwise unremarkable noncontrast CT scan of the brain CT head, 01/12/2025: 1. No large acute territorial ischemia or intracranial hemorrhage. 2. 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 vital signs Vital Sign Date Time Temp Pulse Resp B/P (MAP) Pulse Ox O2 Delivery O2 Flow Rate FiO2 01/17/25 10:12 137/75 01/17/25 10:00 18 100 Mechanical Ventilator+ 30 30 01/17/25 09:56 64 01/17/25 09:30 98.4 209.1 Total Intake and Output 01/16/25 01/16/25 01/17/25 14:59 22:59 06:59 Intake Total 1229.50 ml 1077.275 ml 897.485 ml Output Total 175 ml 201 ml Balance 1229.50 ml 902.275 ml 696.485 ml medications Current Medications Medications Dose Ordered Sig/Tracy Route Start Time Stop Time Status Last Admin Dose Admin Midazolam HCl 50 ml @ 1 mls/hr Q24H IV 01/12/25 17:15 01/15/25 16:41 4 MLS/HR Fentanyl Citrate 250 ml @ 2.5 mls/hr Q24H IV 01/12/25 18:30 01/16/25 22:08 15 MLS/HR Propofol 100 ml @ 2.925 mls/ hr Q24H IV 01/12/25 19:30 01/17/25 10:12 17.55 MLS/HR Levetiracetam 100 ml @ 400 mls/hr BID IV 01/13/25 10:00 01/17/25 10:14 400 MLS/HR Enoxaparin Sodium 40 mg DAILY SC 01/13/25 10:00 01/15/25 09:34 40 MG Pantoprazole Sodium 40 mg DAILY IV 01/13/25 10:00 01/17/25 10:12 40 MG Diagnostic Test (Pha) 1 strip Q6HR 01/13/25 12:00 01/17/25 04:56 1 STRIP Insulin Human Regular Q6HR SC 01/13/25 12:00 01/16/25 22:48 2 UNITS Dextrose 50 ml UD PRN IV 01/13/25 09:00 Piperacillin Sod/ Tazobactam Sod 100 ml @ 25 mls/hr Q8HR IV 01/13/25 16:00 01/17/25 04:56 25 MLS/HR Lorazepam 1 mg Q5MINP PRN IV 01/13/25 10:30 Aspirin 300 mg DAILY [place] 01/14/25 10:00 01/15/25 09:17 300 MG Sodium Chloride 1,000 ml @ 100 mls/hr Q10H IV 01/13/25 12:00 01/16/25 17:30 100 MLS/HR Insulin Glargine 10 units DAILY@1000 SC 01/14/25 10:00 01/16/25 09:58 10 UNITS Enteral Nutritional Formula 1,000 ml 30ML/HR GT 01/14/25 08:45 01/16/25 18:41 1,000 ML Norepinephrine Bitartrate 250 ml @ 3.75 mls/hr Q24H IV 01/15/25 10:00 01/16/25 22:38 3.75 MLS/HR Lorazepam 1 mg ONCE PRN IV 01/16/25 23:00 objective The patient is well-nourished and well-developed with no distress. The patient is intubated MENTAL STATUS: Subjective CRANIAL NERVES: Pupils are equal, round and slightly reactive.There are corneal reflexes and doll's eyes phenomenon. No signs of facial weakness. There are gagging or coughing reflexes suctioning and oral care SENSATION: Responsive to pain stimuli. MOTOR: Normal tone in the upper and lower extremity. Normal muscle bulk. No fasciculations. Moves the arms a little bit REFLEXES: Deep tendon reflexes are symmetrical. No pathological reflexes. CEREBELLAR/COORDINATION: Deferred GAIT/STATION: deferred. laboratory and microbiology Laboratory Tests 01/17/25 03:16 Test 01/17/25 03:16 Range/Units Serum Glucose 134 H 74-106 mg/dL Problem List Partial complex seizure Grand mal seizure Status epileptics, ? Triggered by UTI Acute respiratory failure Urinary tract infection Chronic multiple strokes ? Rule out acute stroke Obesity Macrocytosis Assessment/Plan Monitoring Support treatment ICU care MRI head, she was not a candidate Stabilize vitals/pressor drip Respiratory support/vent management Keppra 1000 mg twice daily Ativan for seizure breakthrough Ativan for seizure breakthrough Aspirin 81 mg daily/300 mg [place] Qd Lipitor 40 mg daily IV antibiotics Ceftriaxone Zosyn DVT prophylaxis She was prophylax More recommendation per clinical course This medical document was created using an electronic medical record system with [employer] dictation system. Although this document has been carefully reviewed, there may still be some phonetic and typographical errors. These areas are purely typographical due to imperfections of the software programs, and do not reflect any compromise in the patient's medical care. Prognosis guarded Dietary Evaluation Review Comments: 1. To support pt on ventilator, offer Vital High Protein @50ml/hr providing 105g protwin, 1200kcal meeting pt's protein needs @89%, energy needs @ 112% 2. To support pt off ventilator, offer Glucerna@45ml/hr providing 65 g Protein, 1296 kcal, meeting pt's protein needs 100%, energy needs@ 88% 3. Advance to PO diet CCHO-60 when medically feasible and pt passes a RETREADER eval. Expected Outcomes/Goals: controlled blood sugar, gradual weight loss Plan discussed with: Other Critical Care Time(min): 30 AYAD BOLDEN MD Jan 17, 2025 10:50
[2025-01-17] MEDS: MAGNESIUM SULFATE 1GM/100ML 100 ML IV ONE (13:05)
--- NOTE | 2025-01-17 17:30 | DVHPNRES ---
Progress Note Date Seen: Jan 17, 2025 Resident Creating Document: SHAN LUNA RESIDENT Medical Necessity Reason Pt with a Central, PICC or Fol: Yes The following are medically ne: Central Line, Woods Catheter Subjective Review of Systems Patient was a 59-year-old female with a past medical history as described below was brought to the ER following a suspected seizure-like activity. Patient's family noticed that on Friday evening she was staring at the ground and stopped talking or responding for about 15 minutes following which they decided to bring her to the hospital. While the patient was getting out of the car into the ER it was noticed that her right side was weak and she could not stand following which a code stroke was called and CT head was done which did not show any acute intracranial abnormality. Patient's strength revived after an hour, weakness was likely due to post seizure. Family reported that the patient ran out of her seizure medication for about a week. They also report her seizures have been well controlled with the medications. Past medical history: Seizure disorder, coronary artery disease s/p PCI, hypertension, type 2 diabetes mellitus, TIA, ?KARISSA Past surgical history: PCI Social history: Patient lives in a trailer on her dad's property, denies smoking, alcohol, drug use Home medications: Keppra 750 mg b.i.d., aspirin 81 mg, lisinopril 10 mg, metformin 500 mg b.i.d. Review of systems Patient seen and examined at the bedside Patient was tried to wean off sedation but she got agitated and had to be sedated again CPAP trial could not be done Decreased urine output about 300 mL noted in the Woods's bag Objective vital signs Vital Sign Date Time Temp Pulse Resp B/P (MAP) Pulse Ox O2 Delivery O2 Flow Rate FiO2 01/17/25 16:00 59 01/17/25 16:00 30 01/17/25 16:00 18 99 Mechanical Ventilator+ 01/17/25 15:18 91/54 (66) 01/17/25 14:45 97.9 208.2 Total Intake and Output 01/16/25 01/16/25 01/17/25 15:00 23:00 07:00 Intake Total 1228.65 ml 1077.850 ml 893.385 ml Output Total 175 ml 201 ml Balance 1228.65 ml 902.850 ml 692.385 ml medications Current Medications Medications Dose Ordered Sig/Tracy Route Start Time Stop Time Status Last Admin Dose Admin Midazolam HCl 50 ml @ 1 mls/hr Q24H IV 01/12/25 17:15 01/15/25 16:41 4 MLS/HR Fentanyl Citrate 250 ml @ 2.5 mls/hr Q24H IV 01/12/25 18:30 01/16/25 22:08 15 MLS/HR Propofol 100 ml @ 2.925 mls/ hr Q24H IV 01/12/25 19:30 01/17/25 10:12 17.55 MLS/HR Levetiracetam 100 ml @ 400 mls/hr BID IV 01/13/25 10:00 01/17/25 10:14 400 MLS/HR Enoxaparin Sodium 40 mg DAILY SC 01/13/25 10:00 01/15/25 09:34 40 MG Pantoprazole Sodium 40 mg DAILY IV 01/13/25 10:00 01/17/25 10:12 40 MG Diagnostic Test (Pha) 1 strip Q6HR 01/13/25 12:00 01/17/25 11:59 1 STRIP Insulin Human Regular Q6HR SC 01/13/25 12:00 01/16/25 22:48 2 UNITS Dextrose 50 ml UD PRN IV 01/13/25 09:00 Piperacillin Sod/ Tazobactam Sod 100 ml @ 25 mls/hr Q8HR IV 01/13/25 16:00 01/17/25 14:16 25 MLS/HR Lorazepam 1 mg Q5MINP PRN IV 01/13/25 10:30 Insulin Glargine 10 units DAILY@1000 SC 01/14/25 10:00 01/16/25 09:58 10 UNITS Enteral Nutritional Formula 1,000 ml 30ML/HR GT 01/14/25 08:45 01/16/25 18:41 1,000 ML Norepinephrine Bitartrate 250 ml @ 3.75 mls/hr Q24H IV 01/15/25 10:00 01/16/25 22:38 3.75 MLS/HR Lorazepam 1 mg ONCE PRN IV 01/16/25 23:00 Aspirin 81 mg DAILY GT 01/18/25 10:00 UNV Examination Constitutional: Patient was sedated and mechanically ventilated Gen - no pallor, no icterus, no cyanosis, no clubbing, no LAD, no edema . Skin - Patients skin is warm and dry.. HEENT - normocephalic, atraumatic, moist mucous membranes. Neck - full ROM, no LAD, no JVD Pulmonary - B/L equal breath sounds, no rales, no wheezing, no stridor. cardiovascular - regular S1,S2 heard, no added sounds, no murmurs heard. GI - soft abdomen. no hepatospleenomegaly. Bowel sounds normoactive Neurological - patient while taken off sedation was responsive to voice commands, but not able to make eye contact for more than 5 seconds. laboratory and microbiology Laboratory Tests 01/17/25 03:16 Test 01/17/25 03:16 Range/Units Serum Glucose 134 H 74-106 mg/dL Microbiology Date/Time Source Procedure Growth Status 01/16/25 09:15 Sputum Gram Stain - Final Resulted 01/16/25 09:15 Sputum Respiratory Culture - Preliminary Resulted 01/13/25 23:23 Nose MRSA Screen - Final Complete 01/13/25 10:05 Urine - Woods Port Urine Culture - Final Complete 01/13/25 09:42 Blood Blood Culture - Preliminary NO GROWTH AFTER 72 HOURS OF INCUBATION. Resulted Problem List/Assessment/Plan Problem List/Assessment/Plan Neurology Acute metabolic encephalopathy likely due to seizure History of seizure disorders with breakthrough seizure likely due to missed medication ?Partial complex seizure ?Grand mal seizure - head CT showed old bilateral infarcts, no acute intracranial abnormality - CTA head and neck showed no abnormality - on Keppra - mechanical ventilation Respiratory Acute hypoxic respiratory failure ?Obstructive sleep apnea - ABG reviewed Compensated - mechanical ventilation Cardiovascular Shock likely from sepsis due to UTI, resolved History of coronary artery disease status post PCI Hypertensive heart disease without heart failure - echo shows LVEF 50-55%, normal RV function - vasopressors discontinued - on aspirin Infectious disease Shock likely due to sepsis from UTI, resolved - IV antibiotics Endocrinology Type 2 diabetes mellitus Morbid obesity - on insulin sliding scale DVT prophylaxis: Held as platelet count going down, SCDs PUD prophylaxis: Protonix Diet: Tube feedings Left internal jugular vein central venous catheter inserted on 01/12 Woods's catheter Goals of care discussed with the patient's son and father for over 27 minutes. Full code Critical care time spent excluding procedures: 81 minutes Plan discussed with Dr. Rojas Plan discussed with: Spouse (Len), Son (prem) My Orders My Orders Orders - SHAN LUNA Procedure Category Date Status Time Ventilator Orders RT 01/17/25 Transmitted 11:30 Aspirin Tablet PHA 01/18/25 Logged 10:00 Furosemide Injection PHA 01/18/25 Logged (Lasix Injection) 06:00 Dietary Evaluation Review Comments: 1. To support pt on ventilator, offer Vital High Protein @50ml/hr providing 105g protwin, 1200kcal meeting pt's protein needs @89%, energy needs @ 112% 2. To support pt off ventilator, offer Glucerna@45ml/hr providing 65 g Protein, 1296 kcal, meeting pt's protein needs 100%, energy needs@ 88% 3. Advance to PO diet CCHO-60 when medically feasible and pt passes a OCEAN LIFEGUARD eval. Expected Outcomes/Goals: controlled blood sugar, gradual weight loss Date of Service: Jan 17, 2025 Billing Provider: BORIS ROJAS MD Common Visit Codes: [id number] CARE 30-74 MIN, [id number] CARE-EACH +30MIN SHAN LUNA Jan 17, 2025 17:30 BORIS ROJAS MD Jan 18, 2025 15:24
[2025-01-18] VITALS (92 sets, daily range): BP systolic 97–163; BP diastolic 34–91; PULSE 55–94; RESP 8–25; TEMP 96.4–99.5; O2SAT 30–100
[2025-01-18 03:50] LABS: Basophils # (auto) 0 10 ^3/uL (0-0.2); Hemoglobin 12.1 g/dL (12.2-16.2); Lymphocytes # (auto) 1.5 10 ^3/uL (0.4-5.4); Lymphocytes % (auto) 26.5 % (10.0-50.0); Monocytes # (auto) 0.5 10 ^3/uL (0-1.3)
[2025-01-18 03:54] LABS: Basophils % (auto) 0.4 % (0.0-2.0); Eosinophils # (auto) 0.2 10 ^3/uL (0-0.8); Eosinophils % (auto) 3.8 % (0.0-7.0); Hematocrit 35.1 % (36.0-46.0); Mean Corpuscular Hemoglobin 36.6 pg (28.0-32.0); Mean Corpuscular Hgb Conc. 34.6 g/dL (32.0-36.0); Mean Corpuscular Volume 105.9 fL (80.0-100.0); Monocytes % (auto) 9.2 % (0.0-12.0); Neutrophils # (auto) 3.5 10 ^3/uL (1.6-8.6); Neutrophils % (auto) 60.1 % (37.0-80.0); Platelet Count (auto) 121 10^3/uL (140-450); Red Blood Cells 3.32 10^6/uL (4.0-5.20); White Blood Cell 5.8 10^3/uL (4.4-10.8)
[2025-01-18 03:56] LABS: Sodium 143 mmol/L (136-145)
[2025-01-18 03:57] LABS: Anion Gap 12 (5-15)
[2025-01-18 04:02] LABS: BUN/Creatinine Ratio 17.5 (10.0-20.0); Blood Urea Nitrogen 11 mg/dL (9-23)
[2025-01-18 04:12] LABS: Calcium 8.7 mg/dL (8.7-10.4); Carbon Dioxide 19 mmol/L (20-31); Chloride 112 mmol/L (98-107); Glucose 159 mg/dL (74-106)
--- NOTE | 2025-01-18 05:07 | DVH ---
EXAM: XR Chest, 1 View CLINICAL INDICATION: on vent, pulm vasc congestion TECHNIQUE: Frontal view of the chest. COMPARISON: XY CHEST XRAY 1 VIEW on DOS: 01/17/25, XY CHEST XRAY 1 VIEW on DOS: 01/16/25, XY CHEST PO RTABLE on DOS: 01/15/25, XY CHEST PORTABLE on DOS: 01/14/25, XY CHEST XRAY 1 VIEW on DOS: 01/13/25 FINDINGS: LUNGS AND PLEURAL SPACES: See below. HEART: Cardiomegaly with mild congestion. MEDIASTINUM: Unremarkable. Normal mediastinal contour. BONES/JOINTS: Unremarkable. No acute fracture. TUBES, LINES AND DEVICES: The endotracheal tube (ETT) is in satisfactory position. Left internal j ugular central venous catheter tip in the superior vena cava. Enteric tube tip in the stomach. OTHER FINDINGS: . . . IMPRESSION: Cardiomegaly with mild congestion.
[2025-01-18] MEDS: FUROSEMIDE 20 MG/2 ML VIAL IV ONE ×2 (05:57→10:54)
[2025-01-18 07:12] LABS: Base Excess -5.9 mmol/L (-2.0-3.0)
--- NOTE | 2025-01-18 09:59 | ECG ---
[facility] Test Date: 2025-01-15 Test Time: 23:46:24 Pat Name: YAMILE URIBE Department: icu Room: [address] [place] [address] A Gender: F [place] Justice: JALEN : 1965 Requested By: JUAN LUIS JACOBSEN Order Number: [id number] Reading MD: Justin Calhoun Measurements Intervals [place] Rate: 54 P: 48 HI: 139 QRS: 10 QRSD: 88 T: 107 QT: 614 QTc: 583 Interpretive Statements Sinus rhythm Anterior infarct, old Prolonged QT interval Electronically Signed On 01-19-2025 15:51:50 PDT by Justin Calhoun Please click the below link to view image of tracing.
[2025-01-18] MEDS: ASPirin 81 mg TAB GT SCH (10:00)
[2025-01-18 10:20] LABS: Base Excess -4.3 mmol/L (-2.0-3.0)
--- NOTE | 2025-01-18 11:18 | DVHPN2 ---
Progress Note - Dictate Date Seen: Jan 18, 2025 Medical Necessity Reason Pt with a Central, PICC or Fol: Yes The following are medically ne: Central Line, Woods Catheter Subjective Ms. Tamez is a 59 years old right-handed female with a history of hypertension, diabetes, dyslipidemia, coronary artery disease, heart attack, chronic stroke, seizure disorder, the patient came to the hospital because of possible stroke. I saw her on 02/10/2020 for breakthrough seizure I have seen and examined the patient, I have discussed with her nurse, her father ankle are in the room with her She was awake, she followed verbal commands a little bit, she moves the arms a little bit Urinalysis, 01/12/2025: WBC: 20, urine leukocyte esterase: 3+ UDS, 01/12/2025: Negative CBC, 01/12/2025: Metabolic acidosis WBC/HB/PLT/MCV, 01/13/2025: 15.2/15.2/164/104.4 CMP, 01/13/2025: Unremarkable Lactic acid, 01/12/2025:11.1, 3.6 01/13/2025:2.4, 2.4 Vitamin B12, 01/13/2025: 567 Folic acid, 01/13/2025: 5.41 EEG, 01/14/2025: Remarkably abnormal Echocardiogram, 01/13/2025: LVEF normal 50-55%, RV function normal AV not well visualized Carotid Doppler, 01/12/2025: No large vessel occlusion or high-grade stenosis in the arteries of the head and neck. No aneurysm is identified. CT head, 02/09/2020: 1. No intracranial hemorrhage. 2. Encephalomalacia in the right posterior parietal/temporal lobe and in the left occipital lobe laterally consistent with old infarcts. 3. Old lacunar infarcts in the left basal ganglia and left anterior limb of internal capsule. 4. Mild atrophy. 5. Atherosclerosis. 6. Otherwise unremarkable noncontrast CT scan of the brain CT head, 01/12/2025: 1. No large acute territorial ischemia or intracranial hemorrhage. 2. 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 vital signs Vital Sign Date Time Temp Pulse Resp B/P (MAP) Pulse Ox O2 Delivery O2 Flow Rate FiO2 01/18/25 10:54 136/73 01/18/25 10:45 62 11 95 01/18/25 10:00 Mechanical Ventilator+ 30 30 01/18/25 08:15 98.4 209.1 Total Intake and Output 01/17/25 01/17/25 01/18/25 15:00 23:00 07:00 Intake Total 1036.650 ml 618.16 ml 547.625 ml Output Total 200 ml 200 ml Balance 1036.650 ml 418.16 ml 347.625 ml medications Current Medications Medications Dose Ordered Sig/Tracy Route Start Time Stop Time Status Last Admin Dose Admin Midazolam HCl 50 ml @ 1 mls/hr Q24H IV 01/12/25 17:15 01/17/25 21:58 1 MLS/HR Fentanyl Citrate 250 ml @ 2.5 mls/hr Q24H IV 01/12/25 18:30 01/17/25 23:21 10 MLS/HR Propofol 100 ml @ 2.925 mls/ hr Q24H IV 01/12/25 19:30 01/18/25 06:20 14.625 MLS/HR Levetiracetam 100 ml @ 400 mls/hr BID IV 01/13/25 10:00 01/18/25 10:03 400 MLS/HR Enoxaparin Sodium 40 mg DAILY SC 01/13/25 10:00 01/15/25 09:34 40 MG Pantoprazole Sodium 40 mg DAILY IV 01/13/25 10:00 01/18/25 10:03 40 MG Diagnostic Test (Pha) 1 strip Q6HR 01/13/25 12:00 01/18/25 05:51 1 STRIP Insulin Human Regular Q6HR SC 01/13/25 12:00 01/18/25 05:52 2 UNITS Dextrose 50 ml UD PRN IV 01/13/25 09:00 Piperacillin Sod/ Tazobactam Sod 100 ml @ 25 mls/hr Q8HR IV 01/13/25 16:00 01/18/25 05:57 25 MLS/HR Lorazepam 1 mg Q5MINP PRN IV 01/13/25 10:30 Insulin Glargine 10 units DAILY@1000 SC 01/14/25 10:00 01/16/25 09:58 10 UNITS Enteral Nutritional Formula 1,000 ml 30ML/HR GT 01/14/25 08:45 01/16/25 18:41 1,000 ML Norepinephrine Bitartrate 250 ml @ 3.75 mls/hr Q24H IV 01/15/25 10:00 01/16/25 22:38 3.75 MLS/HR Aspirin 81 mg DAILY GT 01/18/25 10:00 objective The patient is well-nourished and well-developed with no distress. The patient is intubated MENTAL STATUS: Subjective CRANIAL NERVES: Pupils are equal, round and slightly reactive.There are conjugated eye movement. No signs of facial weakness. There are gagging or coughing reflexes during suctioning and oral care SENSATION: Responsive to touch stimuli. MOTOR: Normal tone in the upper and lower extremity. Normal muscle bulk. No fasciculations. Moves the arms a little bit REFLEXES: Deep tendon reflexes are symmetrical. No pathological reflexes. CEREBELLAR/COORDINATION: Deferred GAIT/STATION: deferred. laboratory and microbiology Laboratory Tests 01/18/25 03:01 Test 01/18/25 03:01 Range/Units Serum Glucose 159 H 74-106 mg/dL Problem List Partial complex seizure Grand mal seizure Status epileptics, ? Triggered by UTI Acute respiratory failure Urinary tract infection Chronic multiple strokes ? Rule out acute stroke Obesity Macrocytosis Assessment/Plan Monitoring Support treatment ICU care MRI head, she is not a candidate Stabilize vitals Respiratory support/vent management Keppra 1000 mg twice daily Ativan for seizure breakthrough Ativan for seizure breakthrough Aspirin 81 mg daily/300 mg ID Qd Lipitor 40 mg daily IV antibiotics Ceftriaxone Zosyn DVT prophylaxis She was prophylax More recommendation per clinical course This medical document was created using an electronic medical record system with [employer] computerized dictation system. Although this document has been carefully reviewed, there may still be some phonetic and typographical errors. These areas are purely typographical due to imperfections of the software programs, and do not reflect any compromise in the patient's medical care. Prognosis poor Dietary Evaluation Review Comments: 1. To support pt on ventilator, offer Vital High Protein @50ml/hr providing 105g protwin, 1200kcal meeting pt's protein needs @89%, energy needs @ 112% 2. To support pt off ventilator, offer Glucerna@45ml/hr providing 65 g Protein, 1296 kcal, meeting pt's protein needs 100%, energy needs@ 88% 3. Advance to PO diet CCHO-60 when medically feasible and pt passes a SCREWHEAD POLISHER eval. Expected Outcomes/Goals: controlled blood sugar, gradual weight loss Plan discussed with: Other AYAD BOLDEN MD Jan 18, 2025 11:18
--- NOTE | 2025-01-18 18:20 | DVHPNRES ---
Progress Note Date Seen: Jan 18, 2025 Resident Creating Document: SHAN LUNA RESIDENT Medical Necessity Reason Pt with a Central, PICC or Fol: Yes The following are medically ne: Central Line, Woods Catheter Subjective Review of Systems Patient was a 59-year-old female with a past medical history as described below was brought to the ER following a suspected seizure-like activity. Patient's family noticed that on Friday evening she was staring at the ground and stopped talking or responding for about 15 minutes following which they decided to bring her to the hospital. While the patient was getting out of the car into the ER it was noticed that her right side was weak and she could not stand following which a code stroke was called and CT head was done which did not show any acute intracranial abnormality. Patient's strength revived after an hour, weakness was likely due to post seizure. Family reported that the patient ran out of her seizure medication for about a week. They also report her seizures have been well controlled with the medications. Past medical history: Seizure disorder, coronary artery disease s/p PCI, hypertension, type 2 diabetes mellitus, TIA, ?KARISSA Past surgical history: PCI Social history: Patient lives in a trailer on her dad's property, denies smoking, alcohol, drug use Home medications: Keppra 750 mg b.i.d., aspirin 81 mg, lisinopril 10 mg, metformin 500 mg b.i.d. Review of systems Patient seen and examined at the bedside Patient extubated and put on O2 with simple mask urine output improved after diuresis with lasix Objective vital signs Vital Sign Date Time Temp Pulse Resp B/P (MAP) Pulse Ox O2 Delivery O2 Flow Rate FiO2 01/18/25 18:00 18 100 Nasal Cannula* 4 36 01/18/25 17:01 83 100/71 (81) 01/18/25 16:01 99.5 99.5 Total Intake and Output 01/17/25 01/17/25 01/18/25 15:00 23:00 07:00 Intake Total 1036.650 ml 618.16 ml 571.480 ml Output Total 200 ml 200 ml Balance 1036.650 ml 418.16 ml 371.480 ml medications Current Medications Medications Dose Ordered Sig/Tracy Route Start Time Stop Time Status Last Admin Dose Admin Levetiracetam 100 ml @ 400 mls/hr BID IV 01/13/25 10:00 01/18/25 10:03 400 MLS/HR Enoxaparin Sodium 40 mg DAILY SC 01/13/25 10:00 01/15/25 09:34 40 MG Pantoprazole Sodium 40 mg DAILY IV 01/13/25 10:00 01/18/25 10:03 40 MG Diagnostic Test (Pha) 1 strip Q6HR 01/13/25 12:00 01/18/25 18:06 1 STRIP Insulin Human Regular Q6HR SC 01/13/25 12:00 01/18/25 05:52 2 UNITS Dextrose 50 ml UD PRN IV 01/13/25 09:00 Piperacillin Sod/ Tazobactam Sod 100 ml @ 25 mls/hr Q8HR IV 01/13/25 16:00 01/18/25 14:09 25 MLS/HR Lorazepam 1 mg Q5MINP PRN IV 01/13/25 10:30 Insulin Glargine 10 units DAILY@1000 SC 01/14/25 10:00 01/16/25 09:58 10 UNITS Aspirin 81 mg DAILY GT 01/18/25 10:00 Examination Constitutional: Patient extubated, A/O X 2, does not appear to be in any resp distress Gen - no pallor, no icterus, no cyanosis, no clubbing, no LAD, no edema . Skin - Patients skin is warm and dry.. HEENT - normocephalic, atraumatic, moist mucous membranes. Neck - full ROM, no LAD, no JVD Pulmonary - B/L equal breath sounds with minimal basilar rales, no wheezing, no stridor. cardiovascular - regular S1,S2 heard, no added sounds, no murmurs heard. GI - soft, non tender abdomen. no hepatospleenomegaly. Bowel sounds normoactive Neurological - A/O X 2, still the effect of sedation is weaning off, upper and lower extremity strength 4/5, speech slightly non comprehensible because of hoarseness laboratory and microbiology Laboratory Tests 01/18/25 03:01 Test 01/18/25 03:01 Range/Units Serum Glucose 159 H 74-106 mg/dL Microbiology Date/Time Source Procedure Growth Status 01/16/25 09:15 Sputum Gram Stain - Final Resulted 01/16/25 09:15 Sputum Respiratory Culture - Preliminary Resulted 01/13/25 23:23 Nose MRSA Screen - Final Complete 01/13/25 10:05 Urine - Woods Port Urine Culture - Final Complete 01/13/25 09:42 Blood Blood Culture - Final NO GROWTH AFTER 5 DAYS OF INCUBATION. Complete Problem List/Assessment/Plan Problem List/Assessment/Plan Neurology Acute metabolic encephalopathy likely due to seizure History of seizure disorders with breakthrough seizure likely due to missed medication ?Partial complex seizure ?Grand mal seizure - head CT showed old bilateral infarcts, no acute intracranial abnormality - CTA head and neck showed no abnormality - on Keppra - extubated Respiratory Acute hypoxic respiratory failure ?Obstructive sleep apnea - ABG reviewed Compensated - extubated, on O2 via NC Cardiovascular Shock likely from sepsis due to UTI, resolved History of coronary artery disease status post PCI Hypertensive heart disease without heart failure - echo shows LVEF 50-55%, normal RV function - vasopressors discontinued - on aspirin Infectious disease Shock likely due to sepsis from UTI, resolved - IV antibiotics Endocrinology Type 2 diabetes mellitus Morbid obesity - on insulin sliding scale DVT prophylaxis: Held as platelet count going down and bleeding in the suction, SCDs PUD prophylaxis: Protonix Diet: Tube feedings Left internal jugular vein central venous catheter inserted on 01/12 Woods's catheter Goals of care discussed with the patient's son and father for over 27 minutes. Full code Critical care time spent excluding procedures including cpap trial was 81 minutes Plan discussed with Dr. Rojas Plan discussed with: Other (Dany ( Len ), RN ( Yessica )) My Orders My Orders Orders - SHAN LUNA RESIDENT Procedure Category Date Status Time Chest Xray 1 View XY 01/18/25 Resulted 04:00 Abg W/ Co-Ox RT 01/18/25 Logged 04:00 Basic Metabolic Panel LAB 01/19/25 Verified 04:00 Complete Blood Count LAB 01/19/25 Verified 04:00 Magnesium LAB 01/19/25 Verified 04:00 Chest Xray 1 View XY 01/19/25 Logged 04:00 Dietary Evaluation Review Comments: 1. To support pt on ventilator, offer Vital High Protein @50ml/hr providing 105g protwin, 1200kcal meeting pt's protein needs @89%, energy needs @ 112% 2. To support pt off ventilator, offer Glucerna@45ml/hr providing 65 g Protein, 1296 kcal, meeting pt's protein needs 100%, energy needs@ 88% 3. Advance to PO diet CCHO-60 when medically feasible and pt passes a BUSINESS SYSTEMS ARCHITECT eval. Expected Outcomes/Goals: controlled blood sugar, gradual weight loss Date of Service: Jan 18, 2025 Billing Provider: BORIS ROAJS MD Common Visit Codes: [id number] CARE 30-74 MIN, [id number] CARE-EACH +30MIN SHAN LUNA RESIDENT Jan 18, 2025 18:20 BORIS ROJAS MD Jan 19, 2025 16:00
[2025-01-19] VITALS (23 sets, daily range): BP systolic 123–172; BP diastolic 62–89; PULSE 70–89; RESP 7–27; TEMP 97.8–99.2; O2SAT 95–100
--- NOTE | 2025-01-19 03:48 | DVH ---
CHEST RADIOGRAPH Indication: SOB Technique: Single frontal view of the chest was obtained Comparison: XY CHEST XRAY 1 VIEW on DOS: 01/18/25, XY CHEST XRAY 1 VIEW on DOS: 01/17/25, XY CHEST XRAY 1 VIEW on DOS: 01/16/25 IMPRESSION: Heart appears normal in size. The lungs appear clear without focal airspace opacity, effusion, or pn eumothorax. Left IJ catheter tip in the region of the superior vena cava.
[2025-01-19 03:58] LABS: Basophils # (auto) 0 10 ^3/uL (0-0.2); Basophils % (auto) 0.8 % (0.0-2.0); Eosinophils # (auto) 0.2 10 ^3/uL (0-0.8); Hemoglobin 12.1 g/dL (12.2-16.2); Lymphocytes # (auto) 1.8 10 ^3/uL (0.4-5.4); Monocytes # (auto) 0.5 10 ^3/uL (0-1.3)
[2025-01-19 04:01] LABS: Eosinophils % (auto) 3.2 % (0.0-7.0); Hematocrit 34.9 % (36.0-46.0); Mean Corpuscular Hemoglobin 36.1 pg (28.0-32.0); Mean Corpuscular Hgb Conc. 34.7 g/dL (32.0-36.0); Mean Corpuscular Volume 104.2 fL (80.0-100.0); Monocytes % (auto) 8.5 % (0.0-12.0); Neutrophils # (auto) 2.8 10 ^3/uL (1.6-8.6); Neutrophils % (auto) 53.5 % (37.0-80.0); Nucleated Red Blood Cells % 0.2 %; Platelet Count (auto) 100 10^3/uL (140-450); Red Blood Cells 3.35 10^6/uL (4.0-5.20); Red Cell Distribution Width 14.2 % (11.8-14.3); White Blood Cell 5.3 10^3/uL (4.4-10.8)
[2025-01-19 04:09] LABS: Sodium 144 mmol/L (136-145)
[2025-01-19 04:10] LABS: Anion Gap 8 (5-15); Carbon Dioxide 24 mmol/L (20-31)
[2025-01-19 04:15] LABS: BUN/Creatinine Ratio 14.5 (10.0-20.0); Glucose 106 mg/dL (74-106)
[2025-01-19 04:18] LABS: Blood Urea Nitrogen 8 mg/dL (9-23); Calcium 8.5 mg/dL (8.7-10.4); Chloride 112 mmol/L (98-107); Magnesium 1.5 mg/dL (1.6-2.6); Potassium 3.1 mmol/L (3.5-5.1)
[2025-01-19] MEDS: MAGNESIUM SULFATE 1GM/100ML 100 ML IV SCH ×2 (06:23→18:41)
[2025-01-19] MEDS: POTASSIUM CHL 20MEQ/50ML 50 ML IV SCH (06:23)
[2025-01-19] MEDS: hydrALAZINE HCL 20 MG/ML VL IV ONE (10:23)
--- NOTE | 2025-01-19 11:14 | DVHPN2 ---
Progress Note - Dictate Date Seen: Jan 19, 2025 Medical Necessity Reason Pt with a Central, PICC or Fol: Yes The following are medically ne: Central Line, Woods Catheter Subjective Ms. Tamez is a 59 years old right-handed female with a history of hypertension, diabetes, dyslipidemia, coronary artery disease, heart attack, chronic stroke, seizure disorder, the patient came to the hospital because of possible stroke. I saw her on 02/10/2020 for breakthrough seizure I have seen and examined the patient, I have discussed with her nurse, her father and the son are in the room with her She was awake, extubated, oriented to person, place, she was talks, but not able to give good history Her father replace on 01/12/2025, when he was driving, the patient was writing, she was suddenly stopped talking, with eyes spacing out. After the arrived the patient was uncle's home, she was did not talk, but had abnormal behavior, and the decide bring her medical attention. And in the ER, the patient was had a witnessed seizure in the triage Urinalysis, 01/12/2025: WBC: 20, urine leukocyte esterase: 3+ UDS, 01/12/2025: Negative CBC, 01/12/2025: Metabolic acidosis WBC/HB/PLT/MCV, 01/13/2025: 15.2/15.2/164/104.4 CMP, 01/13/2025: Unremarkable Lactic acid, 01/12/2025:11.1, 3.6 01/13/2025:2.4, 2.4 Vitamin B12, 01/13/2025: 567 Folic acid, 01/13/2025: 5.41 EEG, 01/14/2025: Remarkably abnormal Echocardiogram, 01/13/2025: LVEF normal 50-55%, RV function normal AV not well visualized Carotid Doppler, 01/12/2025: No large vessel occlusion or high-grade stenosis in the arteries of the head and neck. No aneurysm is identified. CT head, 02/09/2020: 1. No intracranial hemorrhage. 2. Encephalomalacia in the right posterior parietal/temporal lobe and in the left occipital lobe laterally consistent with old infarcts. 3. Old lacunar infarcts in the left basal ganglia and left anterior limb of internal capsule. 4. Mild atrophy. 5. Atherosclerosis. 6. Otherwise unremarkable noncontrast CT scan of the brain CT head, 01/12/2025: 1. No large acute territorial ischemia or intracranial hemorrhage. 2. 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 vital signs Vital Sign Date Time Temp Pulse Resp B/P (MAP) Pulse Ox O2 Delivery O2 Flow Rate FiO2 01/19/25 10:23 172/89 01/19/25 08:00 85 01/19/25 08:00 12 96 Nasal Cannula* 3 32 01/19/25 04:00 98.8 98.8 Total Intake and Output 01/18/25 01/18/25 01/19/25 15:00 23:00 07:00 Intake Total 150.413 ml 75 ml 0 ml Output Total 2550 ml 2400 ml Balance 150.413 ml -2475 ml -2400 ml medications Current Medications Medications Dose Ordered Sig/Tracy Route Start Time Stop Time Status Last Admin Dose Admin Levetiracetam 100 ml @ 400 mls/hr BID IV 01/13/25 10:00 01/19/25 10:22 400 MLS/HR Enoxaparin Sodium 40 mg DAILY SC 01/13/25 10:00 01/15/25 09:34 40 MG Pantoprazole Sodium 40 mg DAILY IV 01/13/25 10:00 01/19/25 10:22 40 MG Diagnostic Test (Pha) 1 strip Q6HR 01/13/25 12:00 01/19/25 06:22 1 STRIP Insulin Human Regular Q6HR SC 01/13/25 12:00 01/18/25 05:52 2 UNITS Dextrose 50 ml UD PRN IV 01/13/25 09:00 Piperacillin Sod/ Tazobactam Sod 100 ml @ 25 mls/hr Q8HR IV 01/13/25 16:00 01/19/25 06:39 25 MLS/HR Lorazepam 1 mg Q5MINP PRN IV 01/13/25 10:30 Insulin Glargine 10 units DAILY@1000 SC 01/14/25 10:00 01/16/25 09:58 10 UNITS Aspirin 81 mg DAILY GT 01/18/25 10:00 Potassium Chloride 50 ml @ 25 mls/hr Q2H IV 01/19/25 06:15 01/19/25 12:14 01/19/25 10:24 25 MLS/HR objective The patient is well-nourished and well-developed with no distress. MENTAL STATUS: Subjective CRANIAL NERVES: Pupils are equal, round and reactive.There are normal conjugated eye movement. No signs of facial weakness. Sensorimotor examined in bilateral trigeminal distribution is fine SENSATION: Fine to pinprick and light touch MOTOR: Normal tone in the upper and lower extremity. Normal muscle bulk. No fasciculations. Moves the arms REFLEXES: Deep tendon reflexes are symmetrical. No pathological reflexes. CEREBELLAR/COORDINATION: Deferred GAIT/STATION: deferred. laboratory and microbiology Laboratory Tests 01/19/25 03:35 Test 01/19/25 03:35 Range/Units Serum Glucose 106 74-106 mg/dL Problem List Partial complex seizure Grand mal seizure Status epileptics, ? Triggered by UTI Acute respiratory failure, improving Urinary tract infection Chronic multiple strokes ? Rule out acute stroke Obesity Macrocytosis Assessment/Plan Monitoring Support treatment ICU care MRI head, she is not a candidate Stabilize vitals Respiratory support Keppra 1000 mg twice daily Ativan for seizure breakthrough Aspirin 81 mg daily Lipitor 40 mg daily IV antibiotics Ceftriaxone Zosyn DVT prophylaxis She was prophylax More recommendation per clinical course This medical document was created using an electronic medical record system with [employer] dictation system. Although this document has been carefully reviewed, there may still be some phonetic and typographical errors. These areas are purely typographical due to imperfections of the software programs, and do not reflect any compromise in the patient's medical care. Prognosis poor Dietary Evaluation Review Comments: 1. To support pt on ventilator, offer Vital High Protein @50ml/hr providing 105g protwin, 1200kcal meeting pt's protein needs @89%, energy needs @ 112% 2. To support pt off ventilator, offer Glucerna@45ml/hr providing 65 g Protein, 1296 kcal, meeting pt's protein needs 100%, energy needs@ 88% 3. Advance to PO diet CCHO-60 when medically feasible and pt passes a PROGRAM DIRECTOR/TRAFFIC DIRECTOR eval. Expected Outcomes/Goals: controlled blood sugar, gradual weight loss Plan discussed with: Son, Other Critical Care Time(min): 40 AYAD BOLDEN MD Jan 19, 2025 11:14
[2025-01-19 15:40] LABS: Potassium 3.4 mmol/L (3.5-5.1)
[2025-01-19 15:48] LABS: Magnesium 1.6 mg/dL (1.6-2.6)
--- NOTE | 2025-01-19 19:40 | DVHPNRES ---
Progress Note Date Seen: Jan 19, 2025 Resident Creating Document: SHAN LUNA RESIDENT Medical Necessity Reason Pt with a Central, PICC or Fol: Yes The following are medically ne: Central Line, Woods Catheter Subjective Review of Systems Patient was a 59-year-old female with a past medical history as described below was brought to the ER following a suspected seizure-like activity. Patient's family noticed that on Friday evening she was staring at the ground and stopped talking or responding for about 15 minutes following which they decided to bring her to the hospital. While the patient was getting out of the car into the ER it was noticed that her right side was weak and she could not stand following which a code stroke was called and CT head was done which did not show any acute intracranial abnormality. Patient's strength revived after an hour, weakness was likely due to post seizure. Family reported that the patient ran out of her seizure medication for about a week. They also report her seizures have been well controlled with the medications. Past medical history: Seizure disorder, coronary artery disease s/p PCI, hypertension, type 2 diabetes mellitus, TIA, ?KARISSA Past surgical history: PCI Social history: Patient lives in a trailer on her dad's property, denies smoking, alcohol, drug use Home medications: Keppra 750 mg b.i.d., aspirin 81 mg, lisinopril 10 mg, metformin 500 mg b.i.d. Review of systems Patient seen and examined at the bedside patient denied any chest pain, shortness of breath, abdominal pain urine output improved Objective vital signs Vital Sign Date Time Temp Pulse Resp B/P (MAP) Pulse Ox O2 Delivery O2 Flow Rate FiO2 01/19/25 17:00 98.4 70 18 123/64 (83) 97 98.4 01/19/25 16:15 Room Air* 0 21 Total Intake and Output 01/18/25 01/18/25 01/19/25 15:00 23:00 07:00 Intake Total 150.413 ml 75 ml 25 ml Output Total 2550 ml 2400 ml Balance 150.413 ml -2475 ml -2375 ml medications Current Medications Medications Dose Ordered Sig/Tracy Route Start Time Stop Time Status Last Admin Dose Admin Enoxaparin Sodium 40 mg DAILY SC 01/13/25 10:00 01/15/25 09:34 40 MG Diagnostic Test (Pha) 1 strip Q6HR 4/24/25 12:00 01/19/25 18:10 1 STRIP Insulin Human Regular Q6HR SC 01/13/25 12:00 01/19/25 18:11 2 UNITS Dextrose 50 ml UD PRN IV 01/13/25 09:00 Piperacillin Sod/ Tazobactam Sod 100 ml @ 25 mls/hr Q8HR IV 01/13/25 16:00 01/19/25 14:19 25 MLS/HR Lorazepam 1 mg Q5MINP PRN IV 01/13/25 10:30 Insulin Glargine 10 units DAILY@1000 SC 01/14/25 10:00 01/16/25 09:58 10 UNITS Aspirin 81 mg DAILY PO 01/20/25 10:00 Magnesium Sulfate/ Dextrose 100 ml @ 100 mls/hr Q1HR IV 01/19/25 18:00 01/19/25 19:59 01/19/25 18:41 100 MLS/HR Pantoprazole Sodium 40 mg DAILY@0600 PO 01/20/25 06:00 Levetiracetam 1,000 mg BID PO 01/19/25 22:00 Examination Constitutional: Patient extubated, A/O X 2, does not appear to be in any resp distress Gen - no pallor, no icterus, no cyanosis, no clubbing, no LAD, no edema . Skin - Patients skin is warm and dry.. HEENT - normocephalic, atraumatic, moist mucous membranes. Neck - full ROM, no LAD, no JVD Pulmonary - B/L equal breath sounds with minimal basilar rales, no wheezing, no stridor. cardiovascular - regular S1,S2 heard, no added sounds, no murmurs heard. GI - soft, non tender abdomen. no hepatospleenomegaly. Bowel sounds normoactive Neurological - A/O X 2, still the effect of sedation is weaning off, upper and lower extremity strength 4/5, speech slightly non comprehensible because of hoarseness, delerious laboratory and microbiology Laboratory Tests 01/19/25 15:13 01/19/25 03:35 Test 01/19/25 03:35 Range/Units Serum Glucose 106 74-106 mg/dL Microbiology Date/Time Source Procedure Growth Status 01/16/25 09:15 Sputum Gram Stain - Final Complete 01/16/25 09:15 Sputum Respiratory Culture - Final Complete 01/13/25 23:23 Nose MRSA Screen - Final Complete 01/13/25 10:05 Urine - Woods Port Urine Culture - Final Complete 01/13/25 09:42 Blood Blood Culture - Final NO GROWTH AFTER 5 DAYS OF INCUBATION. Complete Problem List/Assessment/Plan Problem List/Assessment/Plan Neurology Acute metabolic encephalopathy likely due to seizure History of seizure disorders with breakthrough seizure likely due to missed medication ?Partial complex seizure ?Grand mal seizure - head CT showed old bilateral infarcts, no acute intracranial abnormality - CTA head and neck showed no abnormality - on Keppra po - extubated Respiratory Acute hypoxic respiratory failure ?Obstructive sleep apnea aspiration pneumonia ruled out - ABG reviewed Compensated - extubated, on O2 via NC Cardiovascular Shock likely from sepsis due to UTI, resolved History of coronary artery disease status post PCI Hypertensive heart disease without heart failure - echo shows LVEF 50-55%, normal RV function - vasopressors discontinued - on aspirin Infectious disease Shock likely due to sepsis from UTI, resolved - IV antibiotics Endocrinology Type 2 diabetes mellitus Morbid obesity - on insulin sliding scale NO YI DVT prophylaxis: Held as platelet count going down and bleeding in the suction, SCDs PUD prophylaxis: Protonix Diet: Tube feedings Left internal jugular vein central venous catheter inserted on 01/12 Woods's catheter Goals of care discussed with the patient's son and father for over 28 minutes. Full code Critical care time spent excluding procedures: 63 minutes Plan discussed with Dr. Rojas Plan discussed with: Patient, Other (Father ( Len )) My Orders My Orders Orders - SHAN LUNA RESIDENT Procedure Category Date Status Time Transfer Orders XFER 01/19/25 Transmitted 11:33 Sequential KAILASH 01/19/25 In Process Compression Device 11:34 Pureed DIET 01/19/25 Transmitted Dinner Aspirin Tablet PHA 01/20/25 In Process 10:00 Potassium Chloride PHA 01/19/25 In Process (Potassium Chloride). 19:00 Magnesium Sulfate PHA 01/19/25 In Process 1gm/100ml 18:00 Pantoprazole Tablet PHA 01/20/25 In Process (Protonix Tablet) 06:00 Levetiracetam Tablet PHA 01/19/25 In Process (Keppra Tablet) 22:00 Basic Metabolic Panel LAB 01/20/25 Verified 04:00 Complete Blood Count LAB 01/20/25 Verified 04:00 Magnesium LAB 01/20/25 Verified 04:00 Dietary Evaluation Review Comments: 1. To support pt on ventilator, offer Vital High Protein @50ml/hr providing 105g protwin, 1200kcal meeting pt's protein needs @89%, energy needs @ 112% 2. To support pt off ventilator, offer Glucerna@45ml/hr providing 65 g Protein, 1296 kcal, meeting pt's protein needs 100%, energy needs@ 88% 3. Advance to PO diet CCHO-60 when medically feasible and pt passes a ICE CREAM VAULT WORKER eval. Expected Outcomes/Goals: controlled blood sugar, gradual weight loss Date of Service: Jan 19, 2025 Billing Provider: BORIS ROJAS MD Common Visit Codes: [id number] CARE 30-74 MIN SHAN LUNA RESIDENT Jan 19, 2025 19:40 BORIS ROJAS MD January 20, 2025 12:36
[2025-01-19] MEDS: POTASSIUM CHLORIDE 40 MEQ, LIDOCAINE 1% (LOCAL ANESTH.) 4 ML in SODIUM CHL 0.9% 250 ML IV ONE (21:01)
[2025-01-19] MEDS: levETIRAcetam 500 MG TAB PO SCH (21:10)
[2025-01-20] VITALS (8 sets, daily range): BP systolic 124–151; BP diastolic 58–86; PULSE 70–83; RESP 14–18; TEMP 97.7–98.6; O2SAT 93–96
[2025-01-20] MEDS: MAGNESIUM SULFATE 1GM/100ML 100 ML IV ONE (01:43)
[2025-01-20 06:08] LABS: Basophils # (auto) 0 10 ^3/uL (0-0.2); Basophils % (auto) 0.4 % (0.0-2.0); Eosinophils # (auto) 0.2 10 ^3/uL (0-0.8); Lymphocytes # (auto) 1.9 10 ^3/uL (0.4-5.4); Monocytes # (auto) 0.6 10 ^3/uL (0-1.3); Nucleated Red Blood Cells % 0.2 %; Red Cell Distribution Width 14.3 % (11.8-14.3)
[2025-01-20 06:12] LABS: Eosinophils % (auto) 3.1 % (0.0-7.0); Hematocrit 37.2 % (36.0-46.0); Hemoglobin 12.7 g/dL (12.2-16.2); Lymphocytes % (auto) 31.7 % (10.0-50.0); Mean Corpuscular Hemoglobin 35.6 pg (28.0-32.0); Mean Corpuscular Hgb Conc. 34.2 g/dL (32.0-36.0); Monocytes % (auto) 10.5 % (0.0-12.0); Neutrophils # (auto) 3.2 10 ^3/uL (1.6-8.6); Neutrophils % (auto) 54.3 % (37.0-80.0); Platelet Count (auto) 139 10^3/uL (140-450); Red Blood Cells 3.58 10^6/uL (4.0-5.20)
[2025-01-20 06:14] LABS: Anion Gap 10 (5-15); Carbon Dioxide 22 mmol/L (20-31); Sodium 143 mmol/L (136-145)
[2025-01-20 06:15] LABS: Calcium 8.8 mg/dL (8.7-10.4)
[2025-01-20 06:16] LABS: Chloride 111 mmol/L (98-107); Potassium 3.2 mmol/L (3.5-5.1)
[2025-01-20] MEDS: PANTOPRAZOLE 40 MG TAB PO SCH (06:19)
[2025-01-20 06:20] LABS: BUN/Creatinine Ratio 14.5 (10.0-20.0); Glucose 102 mg/dL (74-106)
[2025-01-20 06:21] LABS: Blood Urea Nitrogen 8 mg/dL (9-23)
[2025-01-20] MEDS: ASPirin 81 mg TAB PO SCH (09:35)
[2025-01-20] MEDS: POTASSIUM CHLORIDE 40 MEQ, LIDOCAINE 1% (LOCAL ANESTH.) 4 ML in SODIUM CHL 0.9% 250 ML IV ONE (10:45)
[2025-01-20] MEDS ORDERED: DEXTROSE (50%) 50ML SYRG IV PRN (10:45)
[2025-01-20] MEDS: LISINOPRIL 5 MG TAB PO ONE (11:48)
[2025-01-20] MEDS: InsuLIN REG 1unit/0.01ml Soln (100units/ml) SC SCH (12:00)
[2025-01-20] MEDS: ACCU-CHEK COMFORT CURVE STRIP VI SCH (12:00)
[2025-01-20 16:36] LABS: Basophils # (auto) 0 10 ^3/uL (0-0.2); Basophils % (auto) 0.7 % (0.0-2.0); Eosinophils # (auto) 0.2 10 ^3/uL (0-0.8); Eosinophils % (auto) 3.9 % (0.0-7.0); Hematocrit 37.4 % (36.0-46.0); Hemoglobin 12.7 g/dL (12.2-16.2); Lymphocytes % (auto) 34.2 % (10.0-50.0); Mean Corpuscular Hemoglobin 35.2 pg (28.0-32.0); Mean Corpuscular Hgb Conc. 33.9 g/dL (32.0-36.0); Mean Corpuscular Volume 103.7 fL (80.0-100.0); Monocytes # (auto) 0.6 10 ^3/uL (0-1.3); Monocytes % (auto) 9.8 % (0.0-12.0); Neutrophils % (auto) 51.4 % (37.0-80.0); Nucleated Red Blood Cells % 0.1 %; Platelet Count (auto) 144 10^3/uL (140-450); Red Cell Distribution Width 14.4 % (11.8-14.3); White Blood Cell 5.8 10^3/uL (4.4-10.8)
--- NOTE | 2025-01-20 20:16 | DVHPNRES ---
Progress Note Date Seen: January 20, 2025 Resident Creating Document: SHAN LUNA RESIDENT Medical Necessity Reason Pt with a Central, PICC or Fol: Yes The following are medically ne: Central Line, Woods Catheter Subjective Review of Systems Patient was a 59-year-old female with a past medical history as described below was brought to the ER following a suspected seizure-like activity. Patient's family noticed that on Friday evening she was staring at the ground and stopped talking or responding for about 15 minutes following which they decided to bring her to the hospital. While the patient was getting out of the car into the ER it was noticed that her right side was weak and she could not stand following which a code stroke was called and CT head was done which did not show any acute intracranial abnormality. Patient's strength revived after an hour, weakness was likely due to post seizure. Family reported that the patient ran out of her seizure medication for about a week. They also report her seizures have been well controlled with the medications. Past medical history: Seizure disorder, coronary artery disease s/p PCI, hypertension, type 2 diabetes mellitus, TIA, ?KARISSA Past surgical history: PCI Social history: Patient lives in a trailer on her dad's property, denies smoking, alcohol, drug use Home medications: Keppra 750 mg b.i.d., aspirin 81 mg, lisinopril 10 mg, metformin 500 mg b.i.d. Review of systems Patient seen and examined at the bedside patient denied any chest pain, shortness of breath, abdominal pain urine output improved patient is hallucinating and is delerious Objective vital signs Vital Sign Date Time Temp Pulse Resp B/P (MAP) Pulse Ox O2 Delivery O2 Flow Rate FiO2 01/20/25 20:00 83 14 Nasal Cannula* 4 36 01/20/25 16:26 98.6 133/72 (92) 94 98.6 Total Intake and Output 01/19/25 01/19/25 01/20/25 15:00 23:00 07:00 Intake Total 650 ml 125 ml 400 ml Output Total 150 ml 250 ml Balance 650 ml -25 ml 150 ml medications Current Medications Medications Dose Ordered Sig/Tracy Route Start Time Stop Time Status Last Admin Dose Admin Lorazepam 1 mg Q5MINP PRN IV 01/13/25 10:30 Insulin Glargine 10 units DAILY@1000 SC 01/14/25 10:00 5/1/25 09:31 10 UNITS Aspirin 81 mg DAILY PO 01/20/25 10:00 01/20/25 09:35 81 MG Pantoprazole Sodium 40 mg DAILY@0600 PO 01/20/25 06:00 01/20/25 06:19 40 MG Levetiracetam 1,000 mg BID PO 01/19/25 22:00 01/20/25 09:34 1,000 MG Diagnostic Test (Pha) 1 strip IQ4HR 01/20/25 12:00 01/20/25 16:00 1 STRIP Insulin Human Regular IQ4HR SC 01/20/25 12:00 Dextrose 50 ml UD PRN IV 01/20/25 10:45 Lisinopril 10 mg DAILY PO 01/21/25 10:00 Examination Constitutional: Patient extubated, A/O X 3, does not appear to be in any resp distress Gen - no pallor, no icterus, no cyanosis, no clubbing, no LAD, no edema . Skin - Patients skin is warm and dry.. HEENT - normocephalic, atraumatic, moist mucous membranes. Neck - full ROM, no LAD, no JVD Pulmonary - B/L equal breath sounds with minimal basilar rales, no wheezing, no stridor. cardiovascular - regular S1,S2 heard, no added sounds, no murmurs heard. GI - soft, non tender abdomen. no hepatospleenomegaly. Bowel sounds normoactive Neurological - A/O X 3, still the effect of sedation is weaning off, upper and lower extremity strength 4/5, speech slightly non comprehensible because of hoarseness, delerious laboratory and microbiology Laboratory Tests 01/20/25 15:54 01/20/25 05:08 Test 01/20/25 05:08 Range/Units Serum Glucose 102 74-106 mg/dL Microbiology Date/Time Source Procedure Growth Status 01/16/25 09:15 Sputum Gram Stain - Final Complete 01/16/25 09:15 Sputum Respiratory Culture - Final Complete 01/13/25 23:23 Nose MRSA Screen - Final Complete 01/13/25 10:05 Urine - Woods Port Urine Culture - Final Complete 01/13/25 09:42 Blood Blood Culture - Final NO GROWTH AFTER 5 DAYS OF INCUBATION. Complete Problem List/Assessment/Plan Problem List/Assessment/Plan Neurology Acute metabolic encephalopathy likely due to seizure History of seizure disorders with breakthrough seizure likely due to missed medication ?Partial complex seizure ?Grand mal seizure - head CT showed old bilateral infarcts, no acute intracranial abnormality - CTA head and neck showed no abnormality - on Keppra po - extubated Respiratory Acute hypoxic respiratory failure ?Obstructive sleep apnea aspiration pneumonia ruled out - ABG reviewed Compensated - extubated, on O2 via NC Cardiovascular Shock likely from sepsis due to UTI, resolved History of coronary artery disease status post PCI Hypertensive heart disease without heart failure - echo shows LVEF 50-55%, normal RV function - on aspirin Infectious disease Shock likely due to sepsis from UTI, resolved - IV antibiotics d/c Endocrinology Type 2 diabetes mellitus Morbid obesity - on insulin sliding scale NO YI DVT prophylaxis: Held as platelet count going down and bleeding in the suction, SCDs PUD prophylaxis: Protonix Diet: pureed diet Goals of care discussed with the patient's father for over 21minutes. Full code Time spent :37 mins Plan discussed with Dr. Rojas Plan discussed with: Patient, Other (Father ( Len ), RN ( Hyacinth )) My Orders My Orders Orders - SHAN LUNA RESIDENT Procedure Category Date Status Time Glucose Blood PHA 01/20/25 In Process (Accu-Chek Comfort 12:00 Insulin R (Human) PHA 01/20/25 In Process (Insulin R) 12:00 Dextrose 50% Syringe PHA 01/20/25 In Process 10:45 Lisinopril Tablet PHA 01/21/25 In Process (Zestril Tablet) 10:00 Dietary Evaluation Review Comments: 1. To support pt on ventilator, offer Vital High Protein @50ml/hr providing 105g protwin, 1200kcal meeting pt's protein needs @89%, energy needs @ 112% 2. To support pt off ventilator, offer Glucerna@45ml/hr providing 65 g Protein, 1296 kcal, meeting pt's protein needs 100%, energy needs@ 88% 3. Advance to PO diet CCHO-60 when medically feasible and pt passes a MINING MACHINERY ASSEMBLER eval. Expected Outcomes/Goals: controlled blood sugar, gradual weight loss Date of Service: January 20, 2025 Billing Provider: BORIS ROJAS MD Common Visit Codes: [id number] INP/OBS CARE(HIGH) Secondary Visit Codes: [id number] CARE PLAN 30 MINUTES SHAN LUNA RESIDENT January 20, 2025 20:16 BORIS ROJAS MD January 23, 2025 12:18
[2025-01-21 01:00] VITALS: BP 119/58; PULSE 68; RESP 18; TEMP 97.3; O2SAT 95
[2025-01-21 05:00] VITALS: BP 111/63; PULSE 71; RESP 18; TEMP 97.6; O2SAT 94
[2025-01-21 06:28] LABS: Anion Gap 10 (5-15); Carbon Dioxide 21 mmol/L (20-31); Sodium 143 mmol/L (136-145)
[2025-01-21 06:29] LABS: Calcium 8.9 mg/dL (8.7-10.4)
[2025-01-21 06:32] LABS: Basophils # (auto) 0.1 10 ^3/uL (0-0.2); Hemoglobin 12.1 g/dL (12.2-16.2); Lymphocytes # (auto) 2.4 10 ^3/uL (0.4-5.4); Monocytes # (auto) 0.5 10 ^3/uL (0-1.3); Neutrophils % (auto) 49.9 % (37.0-80.0); White Blood Cell 6.5 10^3/uL (4.4-10.8)
[2025-01-21 06:33] LABS: Chloride 112 mmol/L (98-107); Potassium 3.4 mmol/L (3.5-5.1)
[2025-01-21 06:34] LABS: BUN/Creatinine Ratio 13.6 (10.0-20.0); Basophils % (auto) 1.2 % (0.0-2.0); Eosinophils # (auto) 0.2 10 ^3/uL (0-0.8); Eosinophils % (auto) 3.7 % (0.0-7.0); Hematocrit 35.6 % (36.0-46.0); Mean Corpuscular Hemoglobin 35.4 pg (28.0-32.0); Mean Corpuscular Hgb Conc. 33.9 g/dL (32.0-36.0); Mean Corpuscular Volume 104.5 fL (80.0-100.0); Monocytes % (auto) 8.2 % (0.0-12.0); Neutrophils # (auto) 3.3 10 ^3/uL (1.6-8.6); Nucleated Red Blood Cells % 1.3 %; Platelet Count (auto) 141 10^3/uL (140-450); Red Blood Cells 3.41 10^6/uL (4.0-5.20); Red Cell Distribution Width 14.3 % (11.8-14.3)
[2025-01-21 06:35] LABS: Magnesium 1.8 mg/dL (1.6-2.6)
[2025-01-21 06:40] LABS: Blood Urea Nitrogen 6 mg/dL (9-23); Glucose 73 mg/dL (74-106)
[2025-01-21 07:00] LABS: Large Platelets FEW
[2025-01-21 07:01] LABS: Platelet Estimate Adequate
[2025-01-21 08:00] VITALS: PULSE 83; RESP 14
[2025-01-21 09:00] VITALS: BP 134/76; PULSE 79; RESP 16; TEMP 97.9; O2SAT 98
[2025-01-21] MEDS: POTASSIUM EFFERVESENT TAB 25 MEQ PO ONE (09:52)
[2025-01-21] MEDS: LISINOPRIL 5 MG TAB PO SCH (09:54)
[2025-01-21 13:00] VITALS: BP 125/63; PULSE 65; RESP 17; TEMP 97.9; O2SAT 98
[2025-01-21] MEDS ORDERED: PANT40T PO (15:27)
[2025-01-21] MEDS ORDERED: KEP500T PO (15:27)
[2025-01-21] MEDS ORDERED: LISI-275 PO (15:27)
[2025-01-21] MEDS ORDERED: ASPI-325 PO (15:27)
[2025-01-21] MEDS ORDERED: METF-370 PO (15:28)
--- NOTE | 2025-01-21 15:28 | DVHDSRES ---
Discharge Summary Date of Admission Resident Creating Document: SHAN LUNA RESIDENT Jan 12, 2025 at 20:30 Date of Discharge: January 21, 2025 Admitting Diagnosis Status epilepticus Acute respiratory failure, intubated Diabetes mellitus Hypertension UTI Morbid obesity Wounds: none Labs/Diagnostic Data: Laboratory Results Test 01/21/25 12:06 01/21/25 04:47 01/18/25 10:15 01/18/25 07:00 POC Glucose 103 mg/dl (70-106) White Blood Count 6.5 10^3/uL (4.4-10.8) Red Blood Count 3.41 10^6/uL (4.0-5.20) Hemoglobin 12.1 g/dL (12.2-16.2) Hematocrit 35.6 % (36.0-46.0) Mean Corpuscular Volume 104.5 fL (80.0-100.0) Mean Corpuscular Hemoglobin 35.4 pg (28.0-32.0) Mean Corpuscular Hemoglobin Concent 33.9 g/dL (32.0-36.0) Red Cell Distribution Width 14.3 % (11.8-14.3) Platelet Count 141 10^3/uL (140-450) Mean Platelet Volume 9.4 fL (6.9-10.8) Neutrophils (%) (Auto) 49.9 % (37.0-80.0) Lymphocytes (%) (Auto) 37.0 % (10.0-50.0) Monocytes (%) (Auto) 8.2 % (0.0-12.0) Eosinophils (%) (Auto) 3.7 % (0.0-7.0) Basophils (%) (Auto) 1.2 % (0.0-2.0) Neutrophils # (Auto) 3.3 10 ^3/uL (1.6-8.6) Lymphocytes # (Auto) 2.4 10 ^3/uL (0.4-5.4) Monocytes # (Auto) 0.5 10 ^3/uL (0-1.3) Eosinophils # (Auto) 0.2 10 ^3/uL (0-0.8) Basophils # (Auto) 0.1 10 ^3/uL (0-0.2) Nucleated Red Blood Cells 1.3 % Platelet Estimate Adequate Large Platelets Few Sodium Level 143 mmol/L (136-145) Potassium Level 3.4 mmol/L (3.5-5.1) Chloride Level 112 mmol/L (98-107) Carbon Dioxide Level 21 mmol/L (20-31) Anion Gap 10 (5-15) Blood Urea Nitrogen 6 mg/dL (9-23) Creatinine 0.44 mg/dL (0.550-1.02) Glomerular Filtration Rate Calc 110 mL/min (>90) BUN/Creatinine Ratio 13.6 (10.0-20.0) Serum Glucose 73 mg/dL (74-106) Calcium Level 8.9 mg/dL (8.7-10.4) Magnesium Level 1.8 mg/dL (1.6-2.6) Blood Gas Specimen Type Arterial Blood Gas Sample Site Right radial Blood Gas Patient Temperature 37.0 Arterial Blood Date Drawn [id number] Arterial Blood pH 7.383 (7.350-7.450) Arterial Blood Partial Pressure CO2 34.4 mmHg (32.0-45.0) Arterial Blood Partial Pressure O2 97.2 mmHg (83.0-108.0) Arterial Blood HCO3 20.0 mmol/L (21.0-28.0) Arterial Blood Oxygen Saturation 96.9 % (94.0-98.0) Arterial Blood Base Excess -4.3 mmol/L (-2.0-3.0) Arterial Blood Oxyhemoglobin 96.3 % (94.0-98.0) Arterial Blood Carboxyhemoglobin 0.3 % (0.5-1.5) Arterial Blood Methemoglobin 0.3 % (0.0-1.5) Rene Test Modified Blood Gas Total Hemoglobin 12.70 g/dL (12.0-16.0) Blood Gas Modality Vent - cpap Blood Gas Spontaneous Rate 12 FiO2 % 30.0 Blood Gas Spontaneous Tidal Volume 515 Blood Gas Pressure Support 8 Blood Gas PEEP or CPAP 5.0 Blood Gas Set Respiration Rate 18.0 Blood Gas Tidal Volume 400.0 Test 01/17/25 13:15 01/17/25 03:16 01/13/25 10:05 01/13/25 07:23 Lactic Acid Level 0.9 mmol/L (0.4-2.0) Total Bilirubin 0.8 mg/dL (0.2-1.0) Aspartate Amino Transferase (AST) 36 U/L (13-40) Alanine Aminotransferase (ALT) 20 U/L (7-40) Alkaline Phosphatase 56 U/L (46-116) Total Protein 5.4 g/dL (5.7-8.2) Albumin 3.0 g/dL (3.2-4.8) Influenza Type A Antigen Negative (Negative) Influenza Type B Antigen Negative (Negative) SARS-CoV-2 Antigen (Rapid) Negative (NEGATIVE) Specimen Drawn By Hotel [employer] Motel Room Service Supervisor roseanne dawkins Test 01/13/25 05:02 01/12/25 17:42 01/12/25 17:19 01/12/25 16:43 Hemoglobin A1c 7.3 % A1C (<5.7) Creatine Kinase 78 U/L (34-145) Vitamin B12 Level 567 pg/mL (211-911) Folic Acid 5.41 ng/mL (>5.38) Troponin I High Sensitivity 7 ng/L (</=34) Urine Color Light-yellow (Yellow) Urine Clarity Turbid (Clear) Urine pH 6.0 (5.0-9.0) Urine Specific [place] 1.034 (1.001-1.035) Urine Protein 1+ (Negative) Urine Ketones Negative (Negative) Urine Blood 1+ /uL (Negative) Urine Nitrite Negative (Negative) Urine Bilirubin Negative (Negative) Urine Urobilinogen Normal mg/dL (Negative) Urine Leukocyte Esterase 3+ /uL (Negative) Urine RBC 17 /hpf (0 - 4) Urine Microscopic WBC 20 /HPF (0-5) Urine Squamous Epithelial Cells Few /hpf (<5) Urine Bacteria Few /hpf (None Seen) Urine Glucose 2+ mg/dL (Normal) Urine Opiates Screen Neg (NEGATIVE) Urine Fentanyl Screen Neg (NEGATIVE) Urine Barbiturates Screen Neg (NEGATIVE) Urine Phencyclidine Screen Neg (NEGATIVE) Urine Amphetamines Screen Neg (NEGATIVE) Urine Benzodiazepines Screen Neg (NEGATIVE) Urine Cocaine Screen Neg (NEGATIVE) Urine Cannabinoids Screen Neg (NEGATIVE) Differential Total Cells Counted 100.0 (100) Neutrophils % (Manual) 30 (37.0-80.0) Band Neutrophils % (Manual) 1 Lymphocytes % (Manual) 50 (10.0-50.0) Monocytes % (Manual) 6 (0-12) Eosinophils % (Manual) 2 (0-7) Basophils % (Manual) 0 (0.0-2.0) Metamyelocytes % (manual) 0 Myelocytes % (Manual) 0 Promyelocytes % (Manual) 0 Blast Cells % (Manual) 0 Reactive Lymphocytes 11 Anisocytosis (manual) Slight B-Type Natriuretic Peptide 333.94 pg/mL (0-100) Levetiracetam Level 26.2 ug/mL (10.0-40.0) Other Laboratory Tests 01/21/25 04:47 Brief Hx & Hospital Course: Patient was a 59-year-old female with a past medical history as described below was brought to the ER following a suspected seizure-like activity. Patient's family noticed that on Friday evening she was staring at the ground and stopped talking or responding for about 15 minutes following which they decided to bring her to the hospital. While the patient was getting out of the car into the ER it was noticed that her right side was weak and she could not stand following which a code stroke was called and CT head was done which did not show any acute intracranial abnormality. Patient's strength revived after an hour, weakness was likely due to post seizure. Family reported that the patient ran out of her seizure medication for about a week. They also report her seizures have been well controlled with the medications. Past medical history: Seizure disorder, coronary artery disease s/p PCI, hypertension, type 2 diabetes mellitus, TIA, ?KARISSA Past surgical history: PCI Social history: Patient lives in a trailer on her dad's property, denies smoking, alcohol, drug use Home medications: Keppra 750 mg b.i.d., aspirin 81 mg, lisinopril 10 mg, metformin 500 mg b.i.d. Hospital course Patient was brought to the hospital following seizure-like activity witnessed by the family. As reported by the family patient ran out of her seizure medications for about 2 weeks. There was a concern that after the seizure when the patient was in the ER she had right-sided weakness following which CT head was done which did not show any acute abnormality and CTA head and neck was done which did not show any abnormality, and weakness was likely due to post seizure. Patient was altered and could not maintain her airway for which she was intubated, sedated and put on mechanical ventilation. Neurology were consulted and patient was started on Keppra 1000 mg b.i.d.. Eventually the patient was weaned off sedation and extubated which she tolerated well. Physical therapy worked with the patient and recommended front wheel walker. Patient's son reported that they have front wheel walker and wheelchair at home and the patient refused home health services for physical therapy stating that she has enough help at home. Patient passed swallow valve and was initially started on pureed diet which she tolerated well. Patient was discharged in stable condition to home. Discharge plan Follow up with the PCP in 1 week Medications: Keppra 1000 mg b.i.d., aspirin, lisinopril, metformin, Protonix Consults/Reason for consult Neurology consultation for breakthrough seizure Operations or Procedures Procedure - PROCEDURE MUNITIONS HANDLER SUPERVISOR: Resident Garnica ATTENDING PHYSICIAN: Dr. Palacios The procedure was emergent, the patient was intubated, unable to provide consent, and a designee was not immediately available. PROCEDURE SUMMARY: The [facility] Central Line Insertion Practices form was completed by an independent observer starting with the first handwash prior to starting sterile technique. A time out was performed. My hands were washed immediately prior to the procedure. I wore a surgical cap, mask with protective eyewear, full gown and sterile gloves throughout the procedure. The patient was placed in Trendelenburg position. LEFT chest region was prepped using chlorhexidine scrub and draped in sterile fashion using a full drape and sterile probe cover and sterile gel employed. The medial and lateral heads of the sternocleidomastoid muscle were identified as was the carotid pulse. The Internal Jugular vein was identified using the ultrasound. Anesthesia was achieved over the vein using 1% lidocaine. Using real-time out of plane guidance, the introducer needle was inserted into the Internal Jugular vein under direct ultrasound visualization. Venous blood was withdrawn. The syringe was removed and a guidewire was advanced into the introducer needle. The guidewire was visualized in the Internal Jugular Vein by ultrasound. A small incision was made at the skin surface with a scalpel and the introducer needle was exchanged for a dilator over the guidewire. After appropriate dilation was obtained, the dilator was exchanged over the wire for a central venous catheter. The wire was removed and the catheter was sutured in place. A sterile sorbaview shield was placed over the catheter at the insertion site. The patient tolerated the procedure without any hemodynamic compromise. At time of procedure completion, all ports aspirated and flushed properly. Post-procedure chest x-ray showed: New left internal jugular central venous catheter with tip projecting at the level of the right atrium and no pneumothorax. Estimated blood loss is 5ml. SANDRINE PALACIOS MD 01/14/25 1143: Date of Service: Jan 13, 2025 Billing Provider: SANDRINE PALACIOS MD Common Visit Codes: PROCEDURE ONLY Procedure Codes: 72067-[id number] NON-TUNNEL CV CATH PASTORSHAGUFTA RESIDENT Jan 13, 2025 05:53 SANDRINE PALACIOS MD Jan 14, 2025 11:43 Procedure - Endotracheal Intubation Procedure Note: Patient came with stroke code, possible postictal phase, previous history of INDICATION: Respiratory Insufficiency TSH less than 8, unable to protect airways, likely aspirating, shallow breathing, ALOC. PROCEDURE MUNITIONS HANDLER SUPERVISOR: Aniceto Cui MD ATTENDING PHYSICIAN: : In Attendance of attending Dr. Pena. CONSENT: The procedure was emergent, the patient was unable to provide consent, and a designee was not immediately available. PROCEDURE SUMMARY: A time out was performed. My hands were washed immediately prior to the procedure. I wore a surgical cap, mask with protective eyewear, gown and gloves throughout the procedure. The patient was placed on a quality assurance monitor chassis including continuous pulse oximetry. Rapid Sequence Intubation was conducted. Preoxygenation was done. The patient received Etomidate 30 mg for induction and Rocuronium 100 mg for adequate paralysis. Cricoid pressure was maintained from time induction agent was given to time of cuff balloon inflation. Using a GlideScope (video laryngoscope) and a size 8 endotracheal tube with stylet, the patient was intubated on the 1st attempt. The stylet was removed and cuff balloon was inflated. Appropriate endotracheal tube position was confirmed by direct visualization of vocal cord passage, fogging of the tube, CO2 colormetric indicator and symmetric breath sounds. The tube was secured at lips. Post intubation chest x-ray is pending at this time for confirmation. Ideally will keep the distal end 2.5 cm above jeanie. The procedure was assisted by the Respiratory Therapist on duty. Supervised by ANICETO Vang Jan 13, 2025 01:45 Condition at Discharge: Good Final Diagnosis/Problems List Acute metabolic encephalopathy likely due to seizure History of seizure disorders with breakthrough seizure likely due to missed medication ?Partial complex seizure ?Grand mal seizure Acute hypoxic respiratory failure ?Obstructive sleep apnea aspiration pneumonia ruled out Shock likely from sepsis due to UTI, resolved History of coronary artery disease status post PCI Hypertensive heart disease without heart failure Shock likely due to sepsis from UTI, resolved Type 2 diabetes mellitus Morbid obesity No YI Discharge Disposition: Home with Health Services Discharge Instruct/Medications Diet: See Comment Diet comment: continue on pureed diet for 3 days and then advance diet as tolerated Activity: No Restrictions, As Tolerated Follow Up/Referral: Follow up with the PCP in one week Medications: as per EMR Discharge Statement: "Patient was advised to return to the ER or call 911 if any headaches, dizziness, shortness of breath, chest pain, abdominal pain, bleeding, fevers, or worsening of medical condition. Patient was counseled about treatment plan, medications, possible side effects, patientverbalized understanding. All questions were answered to the best of my ability. This discharge took greater then 30 minutes in planning, reviewing documentation, counseling the patient, and discussing with other team members." ASSESSMENT ASSESSMENT Assessment Acute metabolic encephalopathy likely due to seizure History of seizure disorders with breakthrough seizure likely due to missed medication ?Partial complex seizure ?Grand mal seizure Acute hypoxic respiratory failure ?Obstructive sleep apnea aspiration pneumonia ruled out Shock likely from sepsis due to UTI, resolved History of coronary artery disease status post PCI Hypertensive heart disease without heart failure Shock likely due to sepsis from UTI, resolved Type 2 diabetes mellitus Morbid obesity No YI SHAN LUNA RESIDENT January 21, 2025 15:28
== END 2025-01-21 17:45 | disposition home or self-care (01) | DRG 870 ==
LOC: ER 16:19 → OVERFLOW 20:30 → ICU WEST 01-13 23:12 → TELE-CENTR 01-19 16:08
PROVIDERS: ADMIT Internal Medicine Pulmonary Disease; ATTEND Emergency Medicine
PROC: 02H633Z Insertion of Infusion Device into Right Atrium, Percutaneous Approach (ICD-10-PCS; principal; 2025-01-12)
PROC: 0BH17EZ Insertion of Endotracheal Airway into Trachea, Via Natural or Artificial Opening (ICD-10-PCS; 2025-01-12)
PROC: 5A1955Z Respiratory Ventilation, Greater than 96 Consecutive Hours (ICD-10-PCS; 2025-01-12)
PROC: 02HV33Z Insertion of Infusion Device into Superior Vena Cava, Percutaneous Approach (ICD-10-PCS; 2025-01-13)
PROC: B548ZZA Ultrasonography of Superior Vena Cava, Guidance (ICD-10-PCS; 2025-01-13)
PROC: 0B9B8ZZ Drainage of Left Lower Lobe Bronchus, Via Natural or Artificial Opening Endoscopic (ICD-10-PCS; 2025-01-16)
PROC: 0B968ZZ Drainage of Right Lower Lobe Bronchus, Via Natural or Artificial Opening Endoscopic (ICD-10-PCS; 2025-01-16)
PROC: 5A09357 Assistance with Respiratory Ventilation, Less than 24 Consecutive Hours, Continuous Positive Airway Pressure (ICD-10-PCS; 2025-01-18)
PROC: 5A09357 Assistance with Respiratory Ventilation, Less than 24 Consecutive Hours, Continuous Positive Airway Pressure (ICD-10-PCS; 2025-01-19)
DX: A41.9 Sepsis, unspecified organism (principal); J96.01 Acute respiratory failure with hypoxia; R65.21 Severe sepsis with septic shock; G40.201 Localization-related (focal) (partial) symptomatic epilepsy and epileptic syndromes with complex partial seizures, not intractable, with status epilepticus; N39.0 Urinary tract infection, site not specified; E87.20 Acidosis, unspecified; I10 Essential (primary) hypertension; E66.01 Morbid (severe) obesity due to excess calories; E11.65 Type 2 diabetes mellitus with hyperglycemia; G47.33 Obstructive sleep apnea (adult) (pediatric); E78.5 Hyperlipidemia, unspecified; Z20.822 Contact with and (suspected) exposure to COVID-19; G40.401 Other generalized epilepsy and epileptic syndromes, not intractable, with status epilepticus; D75.89 Other specified diseases of blood and blood-forming organs; D69.6 Thrombocytopenia, unspecified; I25.10 Atherosclerotic heart disease of native coronary artery without angina pectoris; Z86.73 Personal history of transient ischemic attack (TIA), and cerebral infarction without residual deficits; I25.2 Old myocardial infarction; Z87.442 Personal history of urinary calculi; Z68.34 Body mass index [BMI] 34.0-34.9, adult; Z79.82 Long term (current) use of aspirin; Z79.899 Other long term (current) drug therapy
CPT/HCPCS: 36415; 36600; 70450; 70496; 70498; 71045; 80048; 80053; 80307; 81001; 82542; 82550; 82607; 82746; 82805; 82962; 83036; 83605; 83735; 83880; 84132; 84484; 85007; 85025; 85027; 87040; 87070; 87081; 87086; 87205; 87426; 87804; 92610; 93005; 93306; 94002; 94003; 95819; 96365; 96375; 97163; 99291; G0378; J1815; J2003; J2470; J2543; J2704; J3480

== ENCOUNTER 2025-09-09 21:51 | Emergency (ER) | payer OTHER ==
[~2025-09-09] VITALS: Ht 162.6 cm; Wt 104.5 kg
[~2025-09-09 21:51] MED LIST changes: -AML5T PO; -ASPI-498 PO; -ATOR20TA PO; -CLOP75TA28 PO; +KEP500T PO; -LEVE750T3 PO; +LISI-275 PO; -MET25T PO; -OME20T PO; +PANT40T PO
--- NOTE | 2025-09-09 22:06 | ECG ---
[facility] Test Date: 2025-09-09 Test Time: 22:03:29 Pat Name: YAMILE URIBE Department: ED Room: Gender: F General Office Dispatcher: ABEBA : 1965 Requested By: EMERGENCY EMERGENCY Order Number: [id number] Reading MD: Justin Calhoun Measurements Intervals [place] Rate: 82 P: 30 [place]: 138 QRS: -19 QRSD: 88 T: 43 QT: 412 QTc: 482 Interpretive Statements Sinus rhythm Inferior infarct, old Probable anterior infarct, age indeterminate Electronically Signed On 09-12-2025 15:25:05 PST by Justin Calhoun Please click the below link to view image of tracing.
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
[2025-09-10] MEDS ORDERED: IBUP-1456 PO (01:24)
[2025-09-10] MEDS ORDERED: METH-1181 PO (01:24)
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
[2025-09-10 01:27] VITALS: BP 134/64; PULSE 71; RESP 16; TEMP 97.7; O2SAT 97
[2025-09-10] MEDS: HYDROcodone-ACET 5/325MG TAB PO ONE (01:33)
[2025-09-10] MEDS: KETOROLAC TROMETH 60MG/2ML VIAL IM ONE (01:34)
== END 2025-09-10 01:45 | disposition home or self-care (01) ==
LOC: EDUNIT# 21:51 → EDBD 21:51 → ER 21:51
DX: S13.4XXA Sprain of ligaments of cervical spine, initial encounter (principal); S39.012A Strain of muscle, fascia and tendon of lower back, initial encounter; F10.90 Alcohol use, unspecified, uncomplicated; E11.9 Type 2 diabetes mellitus without complications; I10 Essential (primary) hypertension; I25.10 Atherosclerotic heart disease of native coronary artery without angina pectoris; Z79.899 Other long term (current) drug therapy; Z87.442 Personal history of urinary calculi; Z87.440 Personal history of urinary (tract) infections; Z86.73 Personal history of transient ischemic attack (TIA), and cerebral infarction without residual deficits; Z79.84 Long term (current) use of oral hypoglycemic drugs; Z79.82 Long term (current) use of aspirin; V43.52XA Car driver injured in collision with other type car in traffic accident, initial encounter; Y93.89 Activity, other specified; Y92.488 Other paved roadways as the place of occurrence of the external cause; Y99.8 Other external cause status
CPT/HCPCS: 72125; 72131; 93005; 96372; 99285; J1885